=== PATIENT | female | born 1960 | race Caucasian/White ===

== ENCOUNTER 2016-08-25 10:17 | Emergency (ER) | payer OTHER ==
[~2016-08-25] VITALS: Ht 149.9 cm; Wt 54.4 kg
[~2016-08-25 10:17] MED LIST: HYDR-5688 PO; METHADONE PO
[2016-08-25 10:21] VITALS: TEMP 36.9; Ht 149.9 cm; Wt 54.4 kg
[2016-08-25] MEDS ORDERED: MoRPHine SULFATE 4 MG/ML 1 ML CARP\\VIAL IV STA ×2 (11:21→13:50)
[2016-08-25] MEDS ORDERED: OPTIRAY 320 IV PRN (11:30)
[2016-08-25 11:37] LABS: URINE APPEARANCE CLEAR (CLEAR); URINE BILIRUBIN NEG (NEG); URINE COLOR YELLOW; URINE EPITHELIAL CELL AUTO 20-30 /lpf (0-5); URINE NITRITE NEG (NEG); URINE PH 5.5 (4.5-7.5); URINE SPECIFIC GRAVITY 1.007 (1.000-1.030); UROBILINOGEN NEG (NEG); ZZUR CULT IF INDIC CLEAN CATCH NO
[2016-08-25 11:40] LABS: BASO % 0.3 %; BASO ABS # 0.02 K/uL (0-0.2); COMPLETE YES; EOS % 0.5 %; IG% 0.3 %; LYMPH % 27.9 %; LYMPH ABS # 2.18 K/uL (1.2-3.4); MEAN CELL VOLUME 93.5 fL (80-100); MEAN CORPUSCULAR HEMOGLOBIN 31.8 pg (25-34); MEAN PLATELET VOLUME 9.2 fL (7.4-10.4); MONO % 6.5 %; NEUT % 64.5 %; PLATELET COUNT 209 K/uL (130-400); RED BLOOD COUNT 4.28 M/uL (4.2-5.4)
[2016-08-25 11:44] LABS: MANUAL MICROSCOPIC REQUIRED? NO; REVIEW REQ? NO
[2016-08-25 11:54] LABS: INR 0.9 (0.9-1.1); PARTIAL THROMBOPLASTIN RATIO 0.8; PROTHROMBIN TIME (PATIENT) 9.7 SECONDS (9.0-12.0)
[2016-08-25 12:00] LABS: ALT/SGPT 31 U/L (12-78); AST/SGOT 30 U/L (15-37); BLOOD UREA NITROGEN 4 mg/dl (7-18); BUN/CREATININE RATIO 9.7 (10-20); CALCIUM 8.7 mg/dl (8.5-10.1); CARBON DIOXIDE 24 mmol/L (21-32); CHLORIDE 106 mmol/L (98-107); CREATININE 0.44 mg/dl (0.60-1.20); GLUCOSE 83 mg/dl (70-99); POTASSIUM 3.7 mmol/L (3.5-5.1); SODIUM 137 mmol/L (136-145)
[2016-08-25 12:05] LABS: ALB/GLOB RATIO 1.1 (0.9-2); ALKALINE PHOSPHATASE 113 U/L (45-117)
[2016-08-25] MEDS ORDERED: LOSA50TA6 PO (12:07)
[2016-08-25] MEDS ORDERED: [UNRECOGNIZED DRUG - CODE] PO (12:09)
[2016-08-25] MEDS ORDERED: PROM25TA9 PO (12:11)
[2016-08-25] MEDS ORDERED: VLT/50 PO (12:19)
[2016-08-25] MEDS ORDERED: NORT25CA PO (12:21)
[2016-08-25] MEDS ORDERED: BUTA1CAP17 PO (12:24)
--- NOTE | 2016-08-25 12:27 | DIAGNOSTIC IMAGING REPORT ---
CHEST ONE VIEW PORTABLE CLINICAL HISTORY: Chest and abdominal pain. COMPARISON STUDY: Chest CT August 25, 2012. FINDINGS: Lung volumes are normal. There is no pneumothorax or pleural effusion. Calcified mediastinal and right hilar nodes are present. Cardiomediastinal silhouette is stable. Postsurgical finding within left lung apex are noted. There is no evidence of pulmonary edema. Calcified right midlung nodule is noted. The appearance of the chest is unchanged. IMPRESSION: No acute findings. No change in appearance of the chest. Electronically signed by: Jamie Guajardo M.D. 08/25/2016 12:25 PM Dictated Date/Time: 08/25/2016 12:23 PM
--- NOTE | 2016-08-25 13:38 | DIAGNOSTIC IMAGING REPORT ---
CT SCAN OF THE ABDOMEN AND PELVIS WITH IV CONTRAST CLINICAL HISTORY: Generalized abdominal pain. Bloating. COMPARISON STUDY: Abdominal CT dated 08/27/2012. TECHNIQUE: Following the IV administration of 88 cc of Optiray 320, CT scan of the abdomen and pelvis is performed from the lung bases to the proximal femora. Images are reviewed in the axial, sagittal, and coronal planes. IV contrast was administered without complication. Automated dose control exposure was utilized. CT DOSE: 252.51 mGy.cm FINDINGS: Lung bases: The heart is normal in size and without pericardial effusion. Emphysema is noted at the lung bases. There is no airspace consolidation typical for pneumonia or pleural effusion. A 4 cm focus of patchy/geographic groundglass change is present the left lung base on image #43. A tiny hiatal hernia is identified. Liver: The contrast-enhanced liver is mildly enlarged, measuring 18.5 cm in length. The liver demonstrates diffusely diminished attenuation consistent with hepatic steatosis. There is no intrahepatic biliary ductal dilatation. The hepatic veins and portal veins are patent. Gallbladder: Surgically absent noting clips in the gallbladder fossa. Spleen: Normal in size and attenuation. Pancreas: Moderately atrophic and grossly unremarkable. Adrenal glands: Unremarkable. Kidneys: The contrast enhanced kidneys are normal in size and without hydronephrosis. The kidneys enhance symmetrically. Abdominal vasculature: The abdominal aorta is normal in course and caliber noting mild to moderate atherosclerotic calcification. Bowel: There are several large duodenal diverticula. No bowel obstruction is seen. There is moderate sigmoid diverticulosis without CT evidence of acute diverticulitis. There is wall thickening and hyperemia identified involving the sigmoid colon and rectum. The appendix is well-visualized and normal. Peritoneum: There is no intraperitoneal free air or abdominal ascites. There is a small fat-containing umbilical hernia. Lymphadenopathy: None. Pelvic viscera: The bladder is normal as visualized. The uterus is surgically absent. No adnexal lesion is seen. Skeletal structures: The skeletal structures appear osteopenic. Mild lumbosacral spondylosis is observed. No lytic or blastic lesions are seen. IMPRESSION: 1. Findings suggest a nonspecific proctocolitis involving the rectosigmoid colon. Clinical correlation will be required. 2. Hepatomegaly and hepatic steatosis. 3. There is a nonspecific 4 cm geographic focus of groundglass change at the left lung base. This was not seen on 08/19/2012 and may be on an infectious/inflammatory basis. A precautionary follow-up chest CT is recommended in 2-3 months time to document resolution as low-grade neoplasm could also have this appearance. 4. Moderate sigmoid diverticulosis without CT evidence of acute diverticulitis. 5. Emphysema. 6. Additional findings as above. Electronically signed by: Amauri Colon M.D. 08/25/2016 1:36 PM Dictated Date/Time: 08/25/2016 1:28 PM
[2016-08-25] MEDS ORDERED: CIPR-255 PO (14:49)
[2016-08-25] MEDS ORDERED: METR-163 PO (14:49)
[2016-08-25] MEDS ORDERED: OXYC-57 PO (14:50)
--- NOTE | 2016-08-25 14:53 | EMERGENCY ROOM VISIT NOTE ---
History First contact with patient: 11:01 Chief Complaint: ABDOMINAL PAIN Stated Complaint: PAIN IN STOMACH,BLOATING Nursing Triage Summary: Triage note: pt reports generalized abd pain and increased weight gain x "a couple months." History of Present Illness The patient is a 55 year old female who presents to the Emergency Room with complaints of generalized abdominal pain and weight gain for the past month. The patient states that she had a hiatal hernia repaired a few months ago. She states that she has had generalized abdominal pain as well as waking over the past 1 month. She has had chest pain "a few times a day." She has been seeing her primary care provider and states that she has an abdominal ultrasound scheduled next month. She also has a heart catheterization scheduled in the future. She denies any chest pain at this time. The patient has had nausea and a few episodes of vomiting. There have been no changes in bowel movements and she denies diarrhea. She states that it sometimes feels difficulty taking a deep breath. She denies any urinary symptoms or fevers. She reports a history of a , exploratory laparoscopies, hysterectomy, and cholecystectomy. She rates her overall discomfort a 10/10. She states she has been taking Phenergan which is prescribed by her primary care provider with little relief. Review of Systems A complete 10-point Review of Systems was discussed with the patient, with pertinent positives and negatives listed in the History of Present Illness. All remaining Review of Systems questions can be considered negative unless otherwise specified. Social History Smoking Status: Current Every Day Smoker Alcohol Use: other (drinks one 12 pack per week) Current/Historical Medications Scheduled Yfgyafosei-Wbwvlmhgxjtrc-Cenyc (Fioricet), 1 CAP PO UD Ciprofloxacin Hcl (Cipro), 500 MG PO BID Losartan Potassium (Cozaar), 50 MG PO DAILY Metronidazole (Flagyl), 500 MG PO TID Nortriptyline (Pamelor), 25 MG PO HS [Methadone], 42 MG PO QAM Scheduled PRN Diclofenac Sod (Voltaren), 50 MG PO Q8H PRN for Headache Oxycodone/Acetaminophen 5MG/325MG (Percocet 5MG/325MG), 1-2 TABS PO Q4H PRN for Pain Promethazine Hcl (Phenergan), 25 MG PO TID PRN for Nausea Allergies Coded Allergies: No Known Allergies (Unverified , 08/25/16) Physical Exam Vital Signs Date Time Temp Pulse Resp B/P Pulse Ox O2 Delivery O2 Flow Rate FiO2 08/25/16 15:05 95 146/93 98 08/25/16 13:45 83 18 115/79 97 Room Air 08/25/16 13:32 85 08/25/16 11:58 87 18 123/69 95 Room Air 08/25/16 10:36 101 08/25/16 10:21 36.9 62 18 130/75 98 Room Air Physical Exam VITALS: Vitals are noted on the nurse's note and reviewed by myself. Vital signs stable. GENERAL: This is a 55-year-old female, in no acute distress, nondiaphoretic, well-developed well-nourished. SKIN: Capillary reflex less than 2 seconds. HEENT: Normocephalic. PERRLA. EOMI. Nares patent. Mucous membranes moist. Neck is supple without nuchal rigidity. HEART: Regular rate and rhythm without murmurs gallops or rubs. LUNGS: Clear to auscultation bilaterally without wheezes, rales or rhonchi. No retractions or accessory muscle use. ABDOMEN: The abdomen is mildly distended in appearance. Normal active bowel sounds in all 4 quadrants. Generalized mild tenderness to palpation throughout the abdomen. No guarding or rebound tenderness. NEURO: Patient was alert and oriented to person place and time. Medical Decision & Procedures ER Provider Diagnostic Interpretation: CHEST ONE VIEW PORTABLE FINDINGS: Lung volumes are normal. There is no pneumothorax or pleural effusion. Calcified mediastinal and right hilar nodes are present. Cardiomediastinal silhouette is stable. Postsurgical finding within left lung apex are noted. There is no evidence of pulmonary edema. Calcified right midlung nodule is noted. The appearance of the chest is unchanged. IMPRESSION: No acute findings. No change in appearance of the chest. CT SCAN OF THE ABDOMEN AND PELVIS WITH IV CONTRAST FINDINGS: Lung bases: The heart is normal in size and without pericardial effusion. Emphysema is noted at the lung bases. There is no airspace consolidation typical for pneumonia or pleural effusion. A 4 cm focus of patchy/geographic groundglass change is present the left lung base on image #43. A tiny hiatal hernia is identified. Liver: The contrast-enhanced liver is mildly enlarged, measuring 18.5 cm in length. The liver demonstrates diffusely diminished attenuation consistent with hepatic steatosis. There is no intrahepatic biliary ductal dilatation. The hepatic veins and portal veins are patent. Gallbladder: Surgically absent noting clips in the gallbladder fossa. Spleen: Normal in size and attenuation. Pancreas: Moderately atrophic and grossly unremarkable. Adrenal glands: Unremarkable. Kidneys: The contrast enhanced kidneys are normal in size and without hydronephrosis. The kidneys enhance symmetrically. Abdominal vasculature: The abdominal aorta is normal in course and caliber noting mild to moderate atherosclerotic calcification. Bowel: There are several large duodenal diverticula. No bowel obstruction is seen. There is moderate sigmoid diverticulosis without CT evidence of acute diverticulitis. There is wall thickening and hyperemia identified involving the sigmoid colon and rectum. The appendix is well-visualized and normal. Peritoneum: There is no intraperitoneal free air or abdominal ascites. There is a small fat-containing umbilical hernia. Lymphadenopathy: None. Pelvic viscera: The bladder is normal as visualized. The uterus is surgically absent. No adnexal lesion is seen. Skeletal structures: The skeletal structures appear osteopenic. Mild lumbosacral spondylosis is observed. No lytic or blastic lesions are seen. IMPRESSION: 1. Findings suggest a nonspecific proctocolitis involving the rectosigmoid colon. Clinical correlation will be required. 2. Hepatomegaly and hepatic steatosis. 3. There is a nonspecific 4 cm geographic focus of groundglass change at the left lung base. This was not seen on 08/19/2012 and may be on an infectious/inflammatory basis. A precautionary follow-up chest CT is recommended in 2-3 months time to document resolution as low-grade neoplasm could also have this appearance. 4. Moderate sigmoid diverticulosis without CT evidence of acute diverticulitis. 5. Emphysema. 6. Additional findings as above. Laboratory Results 08/25/16 11:20 Red Blood Count 4.28, Mean Corpuscular Volume 93.5, Mean Corpuscular Hemoglobin 31.8, Mean Corpuscular Hemoglobin Concent 34.0, Mean Platelet Volume 9.2, Neutrophils (%) (Auto) 64.5, Lymphocytes (%) (Auto) 27.9, Monocytes (%) (Auto) 6.5, Eosinophils (%) (Auto) 0.5, Basophils (%) (Auto) 0.3, Neutrophils # (Auto) 5.03, Lymphocytes # (Auto) 2.18, Monocytes # (Auto) 0.51, Eosinophils # (Auto) 0.04, Basophils # (Auto) 0.02 08/25/16 11:20 Test 08/25/16 10:30 08/25/16 11:20 Urine Color YELLOW Urine Appearance CLEAR (CLEAR) Urine pH 5.5 (4.5-7.5) Urine Specific [place] 1.007 (1.000-1.030) Urine Protein NEG (NEG) Urine Glucose (UA) NEG (NEG) Urine Ketones NEG (NEG) Urine Occult Blood TRACE (NEG) Urine Nitrite NEG (NEG) Urine Bilirubin NEG (NEG) Urine Urobilinogen NEG (NEG) Urine Leukocyte Esterase NEG (NEG) Urine WBC (Auto) 1-5 /hpf (0-5) Urine RBC (Auto) 0-4 /hpf (0-4) Urine Hyaline Casts (Auto) 1-5 /lpf (0-5) Urine Epithelial Cells (Auto) 20-30 /lpf (0-5) Urine Bacteria (Auto) NEG (NEG) White Blood Count 7.80 K/uL (4.8-10.8) Red Blood Count 4.28 M/uL (4.2-5.4) Hemoglobin 13.6 g/dL (12.0-16.0) Hematocrit 40.0 % (37-47) Mean Corpuscular Volume 93.5 fL (80-100) Mean Corpuscular Hemoglobin 31.8 pg (25-34) Mean Corpuscular Hemoglobin Concent 34.0 g/dl (32-36) Platelet Count 209 K/uL (130-400) Mean Platelet Volume 9.2 fL (7.4-10.4) Neutrophils (%) (Auto) 64.5 % Lymphocytes (%) (Auto) 27.9 % Monocytes (%) (Auto) 6.5 % Eosinophils (%) (Auto) 0.5 % Basophils (%) (Auto) 0.3 % Neutrophils # (Auto) 5.03 K/uL (1.4-6.5) Lymphocytes # (Auto) 2.18 K/uL (1.2-3.4) Monocytes # (Auto) 0.51 K/uL (0.11-0.59) Eosinophils # (Auto) 0.04 K/uL (0-0.5) Basophils # (Auto) 0.02 K/uL (0-0.2) RDW Standard Deviation 44.6 fL (36.4-46.3) RDW Coefficient of Variation 13.1 % (11.5-14.5) Immature Granulocyte % (Auto) 0.3 % Immature Granulocyte # (Auto) 0.02 K/uL (0.00-0.02) Prothrombin Time 9.7 SECONDS (9.0-12.0) Prothromb Time International Ratio 0.9 (0.9-1.1) Activated Partial Thromboplast Time 21.0 SECONDS (21.0-31.0) Partial Thromboplastin Ratio 0.8 Anion Gap 7.0 mmol/L (3-11) Est Creatinine Clear Calc Drug Dose 108.8 ml/min Estimated GFR () 131.7 Estimated GFR (Non- 113.6 BUN/Creatinine Ratio 9.7 (10-20) Calcium Level 8.7 mg/dl (8.5-10.1) Total Bilirubin 0.3 mg/dl (0.2-1) Aspartate Amino Transf (AST/SGOT) 30 U/L (15-37) Alanine Aminotransferase (ALT/SGPT) 31 U/L (12-78) Alkaline Phosphatase 113 U/L (45-117) Troponin I < 0.015 ng/ml (0-0.045) Total Protein 6.6 gm/dl (6.4-8.2) Albumin 3.4 gm/dl (3.4-5.0) Globulin 3.2 gm/dl (2.5-4.0) Albumin/Globulin Ratio 1.1 (0.9-2) Lipase 88 U/L (73-393) Medications Administered Medications (Trade) Dose Ordered Sig/Nash Route Start Time Stop Time Status Last Admin Dose Admin Morphine Sulfate (MoRPHine SULFATE INJ) 4 mg NOW STAT IV 08/25/16 11:21 08/25/16 11:23 DC 08/25/16 11:33 4 MG Morphine Sulfate (MoRPHine SULFATE INJ) 4 mg NOW STAT IV 08/25/16 13:50 08/25/16 13:51 DC 08/25/16 14:02 4 MG ED Course The patient was evaluated as above. Labs were drawn and IV access was obtained. Patient was medicated with 4 mg morphine IV. Patient complained of continued pain and was given an additional 4 mg morphine. Chest x-ray and abdominal CT was performed and read by radiology as above. Patient was reevaluated and felt much better. Findings were discussed with the patient. Discharge instructions were reviewed with the patient. The patient verbalized understanding of my assessment and treatment plan and was discharged home in good condition. Medical Decision Differential diagnosis includes appendicitis, diverticulitis, malignancy, colitis, abdominal ascites, hepatitis, cholecystitis, pancreatitis, among others. The patient is a 55-year-old female who presents today complaining of abdominal pain and weight gain. Labs revealed no leukocytosis, anemia or concerning electrolyte abnormalities. Urinalysis was not suggestive of infection. CT scan showed evidence of nonspecific proctocolitis. The patient has no rectal bleeding. She will be placed on ciprofloxacin and Flagyl and was given a prescription for pain medication. Case management will make the patient an appointment with GI for a colonoscopy. The case was discussed with Dr. Baez, ED attending physician, who agreed with my assessment and treatment plan. Based on the patient's presentation and work up, I feel the patient is stable for outpatient treatment. The patient was educated to return to the emergency department for any worsening of their current condition or new/concerning symptoms. She will follow up with GI and her PCP. [place] Drug Monitoring Program Search Results: no issues identified Impression Primary Impression: Proctocolitis Departure Information Dispostion Home / Self-Care Condition GOOD Prescriptions Oxycodone/Acetaminophen 5MG/325MG (PERCOCET 5MG/325MG) Tab 1-2 TABS PO Q4H Y for Pain, #15 TAB For Initial Treatment Prov: Trista Alva PA-C 08/25/16 Metronidazole (Flagyl) 500 Mg Tab 500 MG PO TID for 10 Days, #30 TAB Prov: Trista Alva PA-C 08/25/16 Ciprofloxacin Hcl (CIPRO) 500 Mg Tab 500 MG PO BID for 10 Days, #20 TAB Prov: Trista Alva PA-C 08/25/16 Referrals Aravind Ontiveros D[facility] (PCP) Patient Instructions My [facility] Additional Instructions You were prescribed Flagyl to be taken 3 times daily as prescribed. This is an antibiotic. All antibiotics have the potential to cause diarrhea. Stop this medication and contact a medical provider if you were to develop any significant adverse side effects including: wheezing, shortness of breath, passing out, vomiting, or a diffuse rash. Always take antibiotics as directed and COMPLETE the ENTIRE course regardless of the improvement of your symptoms. Do NOT drink alcohol while taking this medication, as it will cause severe vomiting. You were prescribed ciprofloxacin to be taken as prescribed. This is an antibiotic. All antibiotics have the potential to cause diarrhea. Stop this medication and contact a medical provider if you were to develop any significant adverse side effects including: wheezing, shortness of breath, passing out, vomiting, or a diffuse rash. Always take antibiotics as directed and COMPLETE the ENTIRE course regardless of the improvement of your symptoms. You have been prescribed Percocet to be used for pain control. Take 1-2 tablets every 4-6 hours as needed for pain. This is a narcotic medication. You cannot drive or consume alcohol while on this medicine. This medicine should only be used for pain that cannot be controlled with hzrg-qew-vrvrwtq pain medicines. For pain control, you can use the following eser-wfa-fbuhzux medicines (if >12 yo): - Regular strength (325mg/tab) Tylenol (acetaminophen) 2 tabs every 4-6 hours as needed. Do not exceed 12 tablets in a 24 hour period. Avoid taking more than 4 grams (4000 mg) of Tylenol per day. This includes any other sources of acetaminophen you may take on a regular basis. - Regular strength (200 mg/tab) Advil (ibuprofen) 1-2 tabs every 4-6 hours as needed. Do not exceed a dose of 3200 mg per day. Case management will schedule you a follow-up appointment with gastroenterology. Make sure to keep this appointment. You should also follow-up with your primary care provider this week. Return to the emergency department with any worsening pain, vomiting, fevers or any new/concerning symptoms. 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
[2016-08-25 15:05] VITALS: BP 146/93; PULSE 95; O2SAT 98
[2016-09-08] MEDS ORDERED: CIPR-255 PO (09:20)
[2016-09-08] MEDS ORDERED: METR-163 PO (09:20)
[2016-09-08] MEDS ORDERED: ASPI81TA28 PO (09:21)
[2016-12-24] MEDS ORDERED: FLUT1INH INH (10:20)
[2016-12-24] MEDS ORDERED: VNTHFA/IN INH (10:20)
== END 2016-08-25 15:00 | disposition home or self-care (01) ==
LOC: C.EDB 10:18 → C.EDA 15:00
DX: K51.30 Ulcerative (chronic) rectosigmoiditis without complications (principal); F17.200 Nicotine dependence, unspecified, uncomplicated; R16.0 Hepatomegaly, not elsewhere classified; K76.0 Fatty (change of) liver, not elsewhere classified; R91.8 Other nonspecific abnormal finding of lung field; K57.30 Diverticulosis of large intestine without perforation or abscess without bleeding; J43.9 Emphysema, unspecified

== ENCOUNTER → 2016-12-21 | Outpatient (CLI) | payer OTHER ==
[~2016-12-21] MED LIST changes: +ASPI81TA28 PO; +BUTA1CAP17 PO; +CIPR-255 PO; +FLUT1INH INH; -HYDR-5688 PO; +LOSA50TA6 PO; +METR-163 PO; +NORT25CA PO; +PROM25TA9 PO; +VANC5CAP PO; +VLT/50 PO; +VNTHFA/IN INH
--- NOTE | 2016-12-21 13:59 | DIAGNOSTIC IMAGING REPORT ---
PA CHEST WITH ABDOMINAL SERIES CLINICAL HISTORY: Diarrhea. Abdominal distention. FINDINGS: A PA chest radiograph is compared to study dated 08/25/2016. The cardiomediastinal silhouette is unremarkable. There are calcified mediastinal and hilar lymph nodes. Calcified granuloma is seen in the right upper lobe. Suture material is present the medial left apex. No airspace consolidation, large pleural effusion, or pneumothorax is seen. The skeletal structures are osteopenic. The bony thorax is grossly intact. Supine and erect abdominal radiographs are correlated with abdominal CT dated 08/25/2016. Cholecystectomy clips are seen in the right upper quadrant. The liver appears enlarged. There is a nonobstructed abdominal bowel gas pattern. No evidence of intraperitoneal free air is seen. There are no abnormal abdominal calcifications. Small phleboliths are identified in the pelvis. The lumbosacral spine and bony pelvis appear intact. Sclerotic change is noted in the sacroiliac joints. IMPRESSION: 1. No active disease in the chest. 2. Nonobstructed abdominal bowel gas pattern. Electronically signed by: Amauri Colon M.D. 12/21/2016 1:58 PM Dictated Date/Time: 12/21/2016 1:55 PM
== END | disposition home or self-care (01) ==
LOC: C.RAD 13:12
PROVIDERS: ATTEND Registered Nurse
DX: R14.0 Abdominal distension (gaseous) (principal); R93.3 Abnormal findings on diagnostic imaging of other parts of digestive tract; R10.31 Right lower quadrant pain; R10.32 Left lower quadrant pain; R19.7 Diarrhea, unspecified

== ENCOUNTER → 2016-12-29 | Day surgery (SDC) | payer OTHER ==
[2016-12-24 10:11] VITALS: Ht 148.6 cm; Wt 52.7 kg
[~2016-12-29] VITALS: Ht 148.6 cm; Wt 52.7 kg
[~2016-12-29] MED LIST changes: -ASPI81TA28 PO; -CIPR-255 PO; +LIDOCAINE HCL 2% 2 ML VIAL (20MG/ML) ONE; -LOSA50TA6 PO; -METR-163 PO; +PROPOFOL IV EMULSION 10 MG/ML 20 ML VIAL IV ONE; +SODIUM CHLORIDE 0.9% 500ML 500 ML IV ONE
[2016-12-29 10:13] VITALS: TEMP 37
--- NOTE | 2016-12-29 10:28 | Endo History and Physical ---
History & Physical Date of Service: Dec 29, 2016. Chief Complaint: Abdominal pain, Abnormal CT Referring Physician: Srikanth History of Present Illness 56 yo CF who presents for colonoscopy secondary to abdominal pain and abnormal CT Scan. Past Surgical History Hx Cardiac Surgery: Yes (HEART CATH, NO STENTS) Hx Internal Defibrillator: No Hx Pacemaker: No Hx Abdominal Surgery: Yes (TRICIA BSO, HERNIA REPAIR, KIMBERLY, , UMBILICAL EXPLORATORY PROCEDURE) Hx of Implantable Prosthesis: No Hx Post-Op Nausea and Vomiting: No Hx Cancer Surgery: Yes (UPPER LEFT LOBECTOMY) Hx Thoracic Surgery: No Hx Orthopedic: Yes (KYPHOPLASTY) Hx Urinary Tract Surgery: No Family History Colon CA Social History Smoking Status: Current Every Day Smoker Hx Substance Use: Yes (METHADONE USE - HX DRUG USE) Hx Alcohol Use: Yes (6-12 PACK BEER/WEEK) Allergies Coded Allergies: Morphine (Verified Allergy, Unknown, HIVES, 12/29/16) Current Medications Reported Home Medications Medications Dose Route/Sig Max Daily Dose Days Date Category Dose Instructions Ventolin Hfa (Albuterol) 200 Puffs/61774 Mcg Aers 2-4 Puffs INH Q6H PRN 12/24/16 Reported Breo Ellipta (Fluticasone Furoate-Vilanterol) 1 Inh Inh 2 Puffs INH QAM 12/24/16 Reported Fioricet (Nowjrtpjra-Oadetbbpwujvh-Krknj) 1 Cap Cap 1 Cap PO UD 08/25/16 Reported TAKE 1 CAPSULE AT ON SET OF MIGRAINE. MAY REPEAT AFTER 4 HOURS. NO MORE THAN 2 CAPSULES PER DAY Pamelor (Nortriptyline HCl) 25 Mg Cap 25 Mg PO HS 08/25/16 Reported Voltaren (Diclofenac Sod) 50 Mg Tabcr 50 Mg PO Q8H PRN 08/25/16 Reported Phenergan (Promethazine HCl) 25 Mg Tab 25 Mg PO TID PRN 08/25/16 Reported [Methadone] 33 Mg PO QAM 01/26/16 Reported Vital Signs Weight (Kilograms): 52.73 Height (Feet): 4 Height (Inches): 10.5 Date Time Temp Pulse Resp B/P (MAP) Pulse Ox O2 Delivery O2 Flow Rate FiO2 12/29/16 10:13 37.0 87 20 159/92 (114) 95 Room Air Physical Exam General Appearance: WD/WN, no apparent distress Respiratory/Chest: Auscultation: breath sounds normal Cardiovascular: Heart Auscultation: RRR Abdomen: Bowel Sounds: normal Inspection & Palpation: soft, non-distended, no tenderness, guarding & rebound Assessment and Plan Assessment: 56 yo CF who presents for colonoscopy secondary to abdominal pain and abnormal CT Scan. Plan: Proceed with colonoscopy.
--- NOTE | 2016-12-29 10:55 | Discharge Instructions ---
Endoscopy Patient Instructions Date / Procedure(s) Performed Dec 29, 2016. Colonoscopy Allergy Information Coded Allergies: Morphine (Verified Allergy, Unknown, HIVES, 12/29/16) Discharge Date / Findings Dec 29, 2016. Non-specific colitis s/p biopsies Diverticulosis Medication Instructions OK to resume all medications today as prescribed Reported Home Medications Medications Dose Route/Sig Max Daily Dose Days Date Category Dose Instructions Ventolin Hfa (Albuterol) 200 Puffs/31788 Mcg Aers 2-4 Puffs INH Q6H PRN 12/24/16 Reported Breo Ellipta (Fluticasone Furoate-Vilanterol) 1 Inh Inh 2 Puffs INH QAM 12/24/16 Reported Fioricet (Qpoyaqqynr-Rpppuvrwvojkq-Exmbr) 1 Cap Cap 1 Cap PO UD 08/25/16 Reported TAKE 1 CAPSULE AT ON SET OF MIGRAINE. MAY REPEAT AFTER 4 HOURS. NO MORE THAN 2 CAPSULES PER DAY Pamelor (Nortriptyline HCl) 25 Mg Cap 25 Mg PO HS 08/25/16 Reported Voltaren (Diclofenac Sod) 50 Mg Tabcr 50 Mg PO Q8H PRN 08/25/16 Reported Phenergan (Promethazine HCl) 25 Mg Tab 25 Mg PO TID PRN 08/25/16 Reported [Methadone] 33 Mg PO QAM 01/26/16 Reported Provider Instructions Activity Restrictions - No exercising or heavy lifting for 24 hours. - Do not drink alcohol the day of the procedure. - Do not drive a car or operate machinery until the day after the procedure. - Do not make any important decisions or sign important papers in 24 hours after the procedure. Following Day: - Return to full activity which may include returning to work/school. Diet Start your diet with liquids and light foods (jello, soup, juice, toast). Then eat your usual diet if not nauseated. Treatment For Common After Affects For mild abdominal pain, bloating, or excessive gas: - Rest - Eat lightly - Lie on right side Follow-Up Information Follow-up with Srikanth as scheduled Anesthesia Information What You Should Know You have had a procedure that required some medicine to reduce anxiety and discomfort. This treatment is called moderate sedation. After receiving the treatment, you may be sleepy, but you will be able to breathe on your own. The effects of the treatment may last for several hours. Follow these instructions along with Activity/Diet recommendations noted above: * Do NOT do anything where dizziness or clumsiness would be dangerous. * Rest quietly at home today, then you can be up and about tomorrow. * Have a responsible person stay with you the rest of today. * You may have had an I.V. today. If so, you may take the dressing off later today. Recommendations Call your doctor if: * Trouble breathing * Continuous vomiting for more than 24 hours * Temperature above 101 degrees * Severe abdominal pain or bloating * Pain not relieved by pain medicine ordered * There is increased drainage or redness from any incision * A large amount of rectal bleeding greater than 2-3 tablespoons. (If you had a polyp/s removed or have hemorrhoids, a small amount of blood - from the rectum is to be expected.) * You have any unanswered questions or concerns. IN THE EVENT OF A SERIOUS EMERGENCY, GO TO THE NEAREST EMERGENCY ROOM Your discharge instructions were prepared by provider Kurtis Amado. Patient Instructions Signature Page Najma Melo Patient (or Guardian) Signature/Date: I have read and understand the instructions given to me by my caregivers. Caregiver/RN/Doctor Signature/Date: The above-named patient and/or guardian has received patient instructions on this date. + Original Patient Signature Page (only) stays with chart. Please make copy for patient.
--- NOTE | 2016-12-29 11:03 | GI REPORT ---
Procedure Date: 12/29/2016 10:09 AM Procedure: Colonoscopy Indications: Generalized abdominal pain, Abnormal CT of the GI tract Medicines: Monitored Anesthesia Care Complications: No immediate complications. Estimated Blood Loss: Estimated blood loss: none. Procedure: Pre-Anesthesia Assessment: - Prior to the procedure, a History and Physical was performed, and patient medications and allergies were reviewed. The patient's tolerance of previous anesthesia was also reviewed. The risks and benefits of the procedure and the sedation options and risks were discussed with the patient. All questions were answered, and informed consent was obtained. Prior Anticoagulants: The patient has taken no previous anticoagulant or antiplatelet agents. ASA Grade Assessment: II - A patient with mild systemic disease. After reviewing the risks and benefits, the patient was deemed in satisfactory condition to undergo the procedure. After I obtained informed consent, the scope was passed under direct vision. Throughout the procedure, the patient's blood pressure, pulse, and oxygen saturations were monitored continuously. The Scope was introduced through the anus and advanced to the terminal ileum. The colonoscopy was performed without difficulty. The patient tolerated the procedure well. The quality of the bowel preparation was good. The terminal ileum, ileocecal valve, appendiceal orifice, and rectum were photographed. Findings: A diffuse area of mildly erythematous mucosa was found in the entire colon. Several random biopsies were obtained with cold forceps for histology in the entire colon. Fluid aspiration for cytology was performed in the entire colon. Multiple small and large-mouthed diverticula were found in the sigmoid colon. Impression: - Erythematous mucosa in the entire examined colon. - Diverticulosis in the sigmoid colon. - Several random biopsies were obtained in the entire colon. - Fluid aspiration was performed. Recommendation: - Resume previous diet. - Continue present medications. - Repeat colonoscopy for surveillance based on pathology results. - Return to primary care physician as previously scheduled. Kurtis Amado DO 12/29/2016 11:02:23 AM This report has been signed electronically. Note Initiated On: 12/29/2016 10:09 AM I attest to the content of the Intraoperative Record and orders documented therein, exceptions below
--- NOTE | 2016-12-29 11:09 | Anesthesiology Progress Note ---
Anesthesia Post Op Note Date & Time Dec 29, 2016 at 11:08 Vital Signs Pain Intensity: 8 Vital Signs Past 12 Hours Date Time Temp Pulse Resp B/P (MAP) Pulse Ox O2 Delivery O2 Flow Rate FiO2 12/29/16 10:55 88 18 132/77 (95) 98 Room Air 12/29/16 10:13 37.0 87 20 159/92 (114) 95 Room Air Notes Mental Status: alert / awake / arousable, participated in evaluation Pt Amnestic to Procedure: Yes Nausea / Vomiting: adequately controlled Pain: adequately controlled Airway Patency, RR, SpO2: stable & adequate BP & HR: stable & adequate Hydration State: stable & adequate Anesthetic Complications: no major complications apparent
[2016-12-29 11:25] VITALS: BP 141/83; PULSE 80; O2SAT 98
== END | disposition home or self-care (01) ==
LOC: C.GI 09:49
PROVIDERS: ATTEND Internal Medicine
DX: K57.30 Diverticulosis of large intestine without perforation or abscess without bleeding (principal); F17.200 Nicotine dependence, unspecified, uncomplicated; Z80.0 Family history of malignant neoplasm of digestive organs; Z79.899 Other long term (current) drug therapy

== ENCOUNTER → 2017-01-11 | Outpatient (CLI) | payer OTHER ==
[~2017-01-11] MED LIST changes: -LIDOCAINE HCL 2% 2 ML VIAL (20MG/ML) ONE; -PROPOFOL IV EMULSION 10 MG/ML 20 ML VIAL IV ONE; -SODIUM CHLORIDE 0.9% 500ML 500 ML IV ONE
--- NOTE | 2017-01-11 15:28 | PULMONARY FUNCTION TEST ---
CLINICAL DATA: A 56 female with a height of 59 inches and a weight of [address] Mai for evaluation of shortness of breath. The patient has been a smoker for 35 years and does have a cough. She is currently on Spiriva. Spirometry pre- and post-bronchodilator, lung volumes, and DLCO were performed. Pre-bronchodilator spirometry demonstrates mild obstructive small airways disease. FVC was 102% of predicted. FEV1 was 93% of predicted. [id number] was 68% of predicted. There was minimal change after inhaled bronchodilator with no significant change in FVC or FEV1 and only 7% improvement in [id number]. Lung volumes demonstrate no evidence of air trapping with residual volume of 28% of predicted. DLCO is mildly reduced at 73% of predicted. IMPRESSION: Mild obstructive airways disease with minimal improvement after inhaled bronchodilator without evidence of air trapping and a moderate reduction in DLCO. MTDD
== END | disposition home or self-care (01) ==
LOC: C.RC 11:01
PROVIDERS: ATTEND Internal Medicine Pulmonary Disease
DX: R06.02 Shortness of breath (principal)

== ENCOUNTER 2017-02-01 09:14 | Emergency (ER) | payer OTHER ==
[~2017-02-01] VITALS: Ht 149.9 cm; Wt 53.2 kg
[~2017-02-01 09:14] MED LIST changes: -VANC5CAP PO
[2017-02-01 09:28] VITALS: TEMP 36.8; Ht 149.9 cm; Wt 53.2 kg
[2017-02-01] MEDS ORDERED: FENTANYL CITRATE INJ 50 MCG/1 ML 2 ML VIAL IV STA ×2 (10:30→12:50)
[2017-02-01] MEDS ORDERED: ONDANSETRON INJ 2 MG/ML 2 ML VIAL IV STA ×2 (10:30→15:10)
[2017-02-01] MEDS ORDERED: OPTIRAY 320 IV PRN (10:45)
[2017-02-01 11:41] LABS: BASO % 0.4 %; BASO ABS # 0.04 K/uL (0-0.2); COMPLETE YES; EOS % 0.2 %; HEMATOCRIT 43.1 % (37-47); IG% 0.8 %; LYMPH % 23.3 %; LYMPH ABS # 2.35 K/uL (1.2-3.4); MEAN CELL VOLUME 92.5 fL (80-100); MEAN CORPUSCULAR HEMOGLOBIN 32.6 pg (25-34); MEAN CORPUSCULAR HGB CONC 35.3 g/dl (32-36); MEAN PLATELET VOLUME 9.8 fL (7.4-10.4); MONO % 5.5 %; NEUT % 69.8 %; PLATELET COUNT 199 K/uL (130-400); RED BLOOD COUNT 4.66 M/uL (4.2-5.4); WHITE BLOOD COUNT 10.09 K/uL (4.8-10.8)
[2017-02-01 11:44] LABS: URINE APPEARANCE CLEAR (CLEAR); URINE BILIRUBIN NEG (NEG); URINE COLOR YELLOW; URINE EPITHELIAL CELL AUTO >30 /lpf (0-5); URINE NITRITE NEG (NEG); URINE SPECIFIC GRAVITY 1.017 (1.000-1.030); UROBILINOGEN NEG (NEG)
[2017-02-01 12:04] LABS: ALKALINE PHOSPHATASE 151 U/L (45-117); ALT/SGPT 23 U/L (12-78); BLOOD UREA NITROGEN 7 mg/dl (7-18); BUN/CREATININE RATIO 15.1 (10-20); CALCIUM 9.5 mg/dl (8.5-10.1); CARBON DIOXIDE 17 mmol/L (21-32); CHLORIDE 106 mmol/L (98-107); CREATININE 0.45 mg/dl (0.60-1.20); GLUCOSE 91 mg/dl (70-99); SODIUM 135 mmol/L (136-145)
[2017-02-01 12:07] LABS: MANUAL MICROSCOPIC REQUIRED? NO; REVIEW REQ? NO
--- NOTE | 2017-02-01 13:14 | DIAGNOSTIC IMAGING REPORT ---
ABD/PELVIS NO IV OR ORAL CONT HISTORY: 56 years-old Female eval for divertic acute generalized abdominal pain with abdominal bloating. COMPARISON: CT abdomen and pelvis 08/25/2016, CT chest 08/25/2012 TECHNIQUE: Multiple axial CT images of the abdomen and pelvis were obtained without contrast. A dose lowering technique was used consistent with the principals of CESAR. FINDINGS: The previously noted geographic groundglass opacity of the left lung base has increased in size now measuring 11 x 5.2 cm, previously 4 x 2 cm. Mild cystic lung changes within this distribution are seen suggesting centrilobular emphysema. Nonspecific prominent nonenlarged epicardial lymph nodes are present, unchanged. Prior cholecystectomy. Pneumobilia of the left hepatic lobe again noted. Nonspecific prequel calcification of the posterior right hepatic lobe is unchanged. Hepatomegaly with hepatic steatosis redemonstrated. The spleen, pancreas and adrenal glands are within normal limits. There are a few scattered nonenlarged lymph nodes seen adjacent to the left adrenal gland which are unchanged and likely reactive. Kidneys, ureters and urinary bladder are unremarkable. Prior hysterectomy. There is moderate plaquing of the abdominal aorta. No bulky retroperitoneal adenopathy. Moderate sized duodenal diverticulum is noted with air-fluid level. No obstruction. Fluid-filled rectosigmoid is noted with air-fluid level. Mild wall thickening is again seen within this distribution. The majority of the colon is collapsed with relative ahaustral fold pattern. There is no significant inflammatory stranding surrounding the colon. The terminal ileum and appendix appear normal. Colonic diverticulosis without definite evidence of acute diverticulitis. Soft tissues are unremarkable. Moderate intervertebral disc space narrowing at L5-S1. IMPRESSION: 1. Relative ahaustral fold pattern involving the majority of the colon is noted with associated air-fluid levels and moderate wall thickening as above suggesting infectious or inflammatory colitis with diarrheal state. 2. No bowel obstruction or pneumoperitoneum. 3. Colonic diverticulosis without definite evidence of acute diverticulitis. 4. Moderate sized duodenal diverticulum incidentally noted. 5. Interval increase in size of the geographic groundglass opacity of the left lung base now measuring up to 11 cm in dimension. Further evaluation with chest CT recommended. 6. Hepatomegaly with hepatic steatosis. The above report was generated using voice recognition software. It may contain grammatical, syntax or spelling errors. Electronically signed by: Anjel Ochoa M.D. 02/01/2017 1:13 PM Dictated Date/Time: 02/01/2017 1:03 PM
[2017-02-01 13:42] LABS: POTASSIUM 3.5 mmol/L (3.5-5.1)
[2017-02-01] MEDS ORDERED: HYOSCYAMINE SULFATE 0.125 MG SL TAB SL STA (15:10)
[2017-02-01] MEDS ORDERED: VANCOMYCIN HCL 125 MG/2.5ML SOLN PO STA (16:22)
[2017-02-01] MEDS ORDERED: VANC5CAP PO (16:28)
[2017-02-01 16:29] VITALS: BP 163/99; PULSE 97; O2SAT 98
[2017-02-01] MEDS ORDERED: RASPBERRY SYRUP 5 ML UDP PO ONE (16:30)
--- NOTE | 2017-02-01 18:09 | EMERGENCY ROOM VISIT NOTE ---
History Report prepared by Negrito: Rebecca Smith Under the Supervision of: Dr. Javier Daily M.D. First contact with patient: 10:11 Chief Complaint: ABDOMINAL PAIN Stated Complaint: STOMACH PAIN EXTENDED Nursing Triage Summary: pt reports dx with diverticulitis 2 weeks ago given abx , since sat. pain in abdomen has increased with bloating , with NV History of Present Illness The patient is a 56 year old female who presents to the Emergency Room with complaints of worsening abdominal pain for the past 2 days. The patient was having similar pain about a month and a half ago. She came to the ED on December 21 and states that she had a CT scan. She followed up with Dr. Amado and had a colonoscopy which showed inflammation. The patient states that a couple of weeks ago she received a letter stating that she had diverticulitis and she was prescribed Flagyl. She took the antibiotic as prescribed. The patient is now having the same diffuse pain that she was having a month and a half ago. She is bloated and feels like she has a "ball stuck" in her abdomen. She rates her pain as a 10/10 in severity. The patient has been nauseated and vomiting for the past 4 days and has had diarrhea for 2 days. She has felt short of breath and hot but has not had a fever. The patient denies any urinary symptoms. Source of History: patient Onset: 2 days ago Position: abdomen Symptom Intensity: 10/10 Quality: other (bloated) Timing: worsening Associated Symptoms: + SOB, + nausea, + vomiting, No fevers, No urinary symptoms Review of Systems See HPI for pertinent positives & negatives. A total of 10 systems reviewed and were otherwise negative. Past Medical & Surgical Medical Problems: (1) Hx of cancer of lung Surgical Problems: (1) History of cholecystectomy Family History Cancer Heart disease Hypertension Social History Smoking Status: Current Every Day Smoker Alcohol Use: none Occupation Status: unemployed Current/Historical Medications Scheduled Kngiepcdyj-Tlcunewwyyczy-Mmcdb (Fioricet), 1 CAP PO UD Fluticasone Furoate-Vilanterol (Breo Ellipta), 2 PUFFS INH QAM Nortriptyline (Pamelor), 25 MG PO HS Vancomycin Hcl (Vancomycin), 1 CAP PO QID [Methadone], 33 MG PO QAM Scheduled PRN Albuterol Hfa (Ventolin Hfa), 2-4 PUFFS INH Q6H PRN for SOB/Wheezing Promethazine Hcl (Phenergan), 25 MG PO TID PRN for Nausea Allergies Coded Allergies: Morphine (Verified Allergy, Unknown, HIVES, 02/01/17) Physical Exam Vital Signs Date Time Temp Pulse Resp B/P (MAP) Pulse Ox O2 Delivery O2 Flow Rate FiO2 02/01/17 16:29 97 18 163/99 98 Room Air 02/01/17 14:12 89 166/95 100 Room Air 02/01/17 13:06 86 16 162/101 96 Room Air 02/01/17 11:00 93 153/131 97 Room Air 02/01/17 09:28 36.8 98 20 150/96 98 Room Air Physical Exam Constitutional: Vital signs reviewed. Eyes: Pupils are equal round reactive to light. Conjunctiva are noninjected. ENT: Pharynx is clear without erythema or exudate. Mucous membranes are dry. Neck supple without meningeal signs. Respiratory: Clear to auscultation bilaterally. Breath sounds are equal bilaterally. Cardiovascular: Regular rate and rhythm. No rubs or gallops. GI: Soft, distended with diffuse tenderness, greatest in the LLQ, no guarding. Bowel sounds are present. Musculoskeletal: No peripheral edema. No lower extremity tenderness. Integumentary: No cyanosis. Neurological: The patient is awake and alert. No focal deficits. Psychiatric: Anxious and tearful. Medical Decision & Procedures ER Provider Diagnostic Interpretation: Radiology results as stated below per my review and the radiologist's interpretation: ABD/PELVIS NO IV OR ORAL CONT HISTORY: 56 years-old Female eval for divertic acute generalized abdominal pain with abdominal bloating. COMPARISON: CT abdomen and pelvis 08/25/2016, CT chest 08/25/2012 TECHNIQUE: Multiple axial CT images of the abdomen and pelvis were obtained without contrast. A dose lowering technique was used consistent with the principals of CESAR. FINDINGS: The previously noted geographic groundglass opacity of the left lung base has increased in size now measuring 11 x 5.2 cm, previously 4 x 2 cm. Mild cystic lung changes within this distribution are seen suggesting centrilobular emphysema. Nonspecific prominent nonenlarged epicardial lymph nodes are present, unchanged. Prior cholecystectomy. Pneumobilia of the left hepatic lobe again noted. Nonspecific prequel calcification of the posterior right hepatic lobe is unchanged. Hepatomegaly with hepatic steatosis redemonstrated. The spleen, pancreas and adrenal glands are within normal limits. There are a few scattered nonenlarged lymph nodes seen adjacent to the left adrenal gland which are unchanged and likely reactive. Kidneys, ureters and urinary bladder are unremarkable. Prior hysterectomy. There is moderate plaquing of the abdominal aorta. No bulky retroperitoneal adenopathy. Moderate sized duodenal diverticulum is noted with air-fluid level. No obstruction. Fluid-filled rectosigmoid is noted with air-fluid level. Mild wall thickening is again seen within this distribution. The majority of the colon is collapsed with relative ahaustral fold pattern. There is no significant inflammatory stranding surrounding the colon. The terminal ileum and appendix appear normal. Colonic diverticulosis without definite evidence of acute diverticulitis. Soft tissues are unremarkable. Moderate intervertebral disc space narrowing at L5-S1. IMPRESSION: 1. Relative ahaustral fold pattern involving the majority of the colon is noted with associated air-fluid levels and moderate wall thickening as above suggesting infectious or inflammatory colitis with diarrheal state. 2. No bowel obstruction or pneumoperitoneum. 3. Colonic diverticulosis without definite evidence of acute diverticulitis. 4. Moderate sized duodenal diverticulum incidentally noted. 5. Interval increase in size of the geographic groundglass opacity of the left lung base now measuring up to 11 cm in dimension. Further evaluation with chest CT recommended. 6. Hepatomegaly with hepatic steatosis. The above report was generated using voice recognition software. It may contain grammatical, syntax or spelling errors. Electronically signed by: Anjel Ochoa M.D. 02/01/2017 1:13 PM Dictated Date/Time: 02/01/2017 1:03 PM Laboratory Results 02/01/17 11:31 Red Blood Count 4.66, Mean Corpuscular Volume 92.5, Mean Corpuscular Hemoglobin 32.6, Mean Corpuscular Hemoglobin Concent 35.3, Mean Platelet Volume 9.8, Neutrophils (%) (Auto) 69.8, Lymphocytes (%) (Auto) 23.3, Monocytes (%) (Auto) 5.5, Eosinophils (%) (Auto) 0.2, Basophils (%) (Auto) 0.4, Neutrophils # (Auto) 7.05, Lymphocytes # (Auto) 2.35, Monocytes # (Auto) 0.55, Eosinophils # (Auto) 0.02, Basophils # (Auto) 0.04 02/01/17 11:31 02/01/17 12:34 Test 02/01/17 11:30 02/01/17 11:31 02/01/17 12:34 Urine Color YELLOW Urine Appearance CLEAR (CLEAR) Urine pH 5.0 (4.5-7.5) Urine Specific [place] 1.017 (1.000-1.030) Urine Protein NEG (NEG) Urine Glucose (UA) NEG (NEG) Urine Ketones NEG (NEG) Urine Occult Blood 2+ (NEG) Urine Nitrite NEG (NEG) Urine Bilirubin NEG (NEG) Urine Urobilinogen NEG (NEG) Urine Leukocyte Esterase TRACE (NEG) Urine WBC (Auto) 1-5 /hpf (0-5) Urine RBC (Auto) 0-4 /hpf (0-4) Urine Hyaline Casts (Auto) 1-5 /lpf (0-5) Urine Epithelial Cells (Auto) >30 /lpf (0-5) Urine Bacteria (Auto) NEG (NEG) White Blood Count 10.09 K/uL (4.8-10.8) Red Blood Count 4.66 M/uL (4.2-5.4) Hemoglobin 15.2 g/dL (12.0-16.0) Hematocrit 43.1 % (37-47) Mean Corpuscular Volume 92.5 fL (80-100) Mean Corpuscular Hemoglobin 32.6 pg (25-34) Mean Corpuscular Hemoglobin Concent 35.3 g/dl (32-36) Platelet Count 199 K/uL (130-400) Mean Platelet Volume 9.8 fL (7.4-10.4) Neutrophils (%) (Auto) 69.8 % Lymphocytes (%) (Auto) 23.3 % Monocytes (%) (Auto) 5.5 % Eosinophils (%) (Auto) 0.2 % Basophils (%) (Auto) 0.4 % Neutrophils # (Auto) 7.05 K/uL (1.4-6.5) Lymphocytes # (Auto) 2.35 K/uL (1.2-3.4) Monocytes # (Auto) 0.55 K/uL (0.11-0.59) Eosinophils # (Auto) 0.02 K/uL (0-0.5) Basophils # (Auto) 0.04 K/uL (0-0.2) RDW Standard Deviation 44.4 fL (36.4-46.3) RDW Coefficient of Variation 13.1 % (11.5-14.5) Immature Granulocyte % (Auto) 0.8 % Immature Granulocyte # (Auto) 0.08 K/uL (0.00-0.02) Anion Gap 12.0 mmol/L (3-11) Est Creatinine Clear Calc Drug Dose 104.1 ml/min Estimated GFR () 129.8 Estimated GFR (Non- 112.0 BUN/Creatinine Ratio 15.1 (10-20) Calcium Level 9.5 mg/dl (8.5-10.1) Total Bilirubin 0.5 mg/dl (0.2-1) Aspartate Amino Transf (AST/SGOT) U/L (15-37) Alanine Aminotransferase (ALT/SGPT) 23 U/L (12-78) Alkaline Phosphatase 151 U/L (45-117) Total Protein 8.1 gm/dl (6.4-8.2) Albumin 3.6 gm/dl (3.4-5.0) Lipase 214 U/L (73-393) Direct Bilirubin 0.1 mg/dl (0-0.2) Date/Time Source Procedure Growth Status 02/01/17 14:15 Stool C.difficile Toxin B Gene (PCR) - Final Positive for C. difficile toxin B gene Complete Laboratory results as reviewed by me. Medications Administered Medications (Trade) Dose Ordered Sig/Nash Route Start Time Stop Time Status Last Admin Dose Admin Ondansetron HCl (Zofran Inj) 4 mg NOW STAT IV 02/01/17 10:30 02/01/17 10:31 DC 02/01/17 11:34 4 MG Fentanyl Citrate (Fentanyl Inj) 50 mcg NOW STAT IV 02/01/17 10:30 02/01/17 10:31 DC 02/01/17 11:35 50 MCG Fentanyl Citrate (Fentanyl Inj) 50 mcg NOW STAT IV 02/01/17 12:50 02/01/17 12:51 DC 02/01/17 12:56 50 MCG Ondansetron HCl (Zofran Inj) 4 mg NOW STAT IV 02/01/17 15:10 02/01/17 15:11 DC 02/01/17 15:19 4 MG Hyoscyamine Sulfate (Levsin Tab) 0.125 mg NOW STAT SL 02/01/17 15:10 02/01/17 15:11 DC 02/01/17 15:19 0.125 MG Vancomycin HCl (Vancomycin Oral Soln) 125 mg NOW STAT PO 02/01/17 16:22 02/01/17 16:24 DC 02/01/17 16:22 125 MG Raspberry (Raspberry Syrup 5ml Cup) 5 ml TODAY@1630 ONCE PO 02/01/17 16:30 02/01/17 16:31 DC 02/01/17 16:30 5 ML ED Course 1011: The patient was evaluated in room B11B. A complete history and physical exam was performed. 1030: Fentanyl 50 mcg IV, Zofran 4 mg IV 1250: Fentanyl Citrate 50 mcg IV 1339: I updated the patient on her results. 1347: I spoke with Dr. Amado of GI. He recommended checking the stool for C-diff and treating if it's positive. Otherwise he will follow-up with the patient as an outpatient. 1350: I updated the patient on the treatment plan. She is currently eating and drinking. 1510: Levsin 0.125 mg SL, Zofran 4 mg IV 1622: Vancomycin HCl 125 mg PO 1624: I reassessed the patient at this time. She is feeling better and resting comfortably. I discussed the results and treatment plan with patient. I answered all pertaining questions that she had. She expressed understanding and verbalized agreement. The patient will be discharged home. 1630: Raspberry Syrup 5 ml PO Medical Decision This is a 56-year-old female who presents with abdominal pain and diarrhea. Differential diagnosis includes colitis, diverticulitis, gastroenteritis, C. difficile infection, foodborne illness, dehydration. I did perform a limited focused review of portions of the patient's old chart on the electronic medical record. The patient was seen in the ED on December 21 and had an x-ray of the abdomen at that time which was unremarkable. No CT was recorded. She did have a CT from July which showed findings concerning her lung as well as her bowel. She followed up with Dr. Amado and had a colonoscopy which showed inflammation. She was diagnosed with C. difficile and placed on Flagyl. I did evaluate the patient as noted above. The patient is presenting with abdominal pain similar to what she describes an episode of diverticulitis diagnosed on CT scan. I could not find any such CT scan at the time she stated she was here. She did have an x-ray and she also had C. difficile testing which was positive. She does state she was treated with Flagyl. I also discussed the CT findings with her in detail from her visit in July including her lung findings. She does have an appointment see a contracting specialist in 2 weeks. She has a prior history of lung cancer. She does continue to smoke. IV access was established. I did treat her with IV fentanyl and Zofran. She was also given normal saline IV. I did order and personally review the patient' s urinalysis as described above. I did order and review the patient's blood work as noted in the electronic medical record. Her white blood cell count is not elevated. I did order a CT of the abdomen and pelvis. I did review the images myself as well as the radiology report as described above. I discussed the findings with the patient including the lung findings. She was given additional Zofran and fentanyl IV. I did discuss the case with Dr. Aneudy barlow gastroenterology. He advised follow up in the office and treatment with vancomycin should she have C. difficile again. I did order a stool culture and C. difficile testing but the patient has not been able to give us a sample. We did give her food and water and after some time she was able to give us a sample. The C. difficile antigen testing came back positive. I did discuss the test results with her. She was given vancomycin here and discharged with a 2 week prescription for vancomycin. She will follow with her doctor. [place] Drug Monitoring Program Search Results: patient reviewed within database Drug Monitoring Findings: No matching patients. Medication Reconcilliation Current Medication List: was personally reviewed by me Blood Pressure Screening Patient's blood pressure: Elevated blood pressure Blood pressure disposition: Referred to PCP Consults Time Called: 1346 Consulting Physician: Dr. Amado Returned Call: [phone] Amado of GI. He recommended checking the stool for C-diff and treating if it's positive. Otherwise he will follow-up with the patient as an outpatient. Impression Primary Impression: C. difficile colitis Scribe Attestation The scribe's documentation has been prepared under my direct and personally reviewed by me in its entirety. I confirm that the note above accurately reflects all work, treatment, procedures, and medical decision making performed by me. Departure Information Dispostion Home / Self-Care Prescriptions Vancomycin Hcl (Vancomycin) 125 Mg Cap 1 CAP PO QID for 14 Days, #56 CAP Prov: Javier Daily M.D. 02/01/17 Referrals No Doctor, Assigned (PCP) Forms Call Back Authorization, HOME CARE DOCUMENTATION FORM, IMPORTANT VISIT INFORMATION Patient Instructions Clostridium Difficile Infec, My [facility] Additional Instructions You have been examined and treated today on an emergency basis only. This is not a substitute for, or an effort to provide, complete comprehensive medical care. It is impossible to recognize and treat all injuries or illnesses in a single emergency department visit. It is therefore important that you follow up closely with your physician. Call as soon as possible for an appointment. Return for worsening symptoms or if you any other concerning symptoms.
== END 2017-02-01 16:56 | disposition home or self-care (01) ==
LOC: C.EDB 09:16
DX: A04.72 Enterocolitis due to Clostridium difficile, not specified as recurrent (principal); K57.90 Diverticulosis of intestine, part unspecified, without perforation or abscess without bleeding; R16.0 Hepatomegaly, not elsewhere classified; K76.0 Fatty (change of) liver, not elsewhere classified; F17.210 Nicotine dependence, cigarettes, uncomplicated; Z85.118 Personal history of other malignant neoplasm of bronchus and lung

== ENCOUNTER → 2017-04-14 | Outpatient (CLI) | payer OTHER ==
[~2017-04-14] MED LIST changes: +VANC5CAP PO; -VLT/50 PO
== END | disposition home or self-care (01) ==
LOC: C.LABSPEC 12:02
PROVIDERS: ATTEND Registered Nurse
DX: R19.7 Diarrhea, unspecified (principal)

== ENCOUNTER → 2017-06-02 | Outpatient (CLI) | payer OTHER ==
[~2017-06-02] MED LIST changes: +FIDA1TAB PO; +METH10TA2 PO; +VANCOMYCIN; +[UNRECOGNIZED DRUG - CODE] PO
[2017-06-02 18:05] LABS: BASO % 0.4 %; BASO ABS # 0.04 K/uL (0-0.2); EOS ABS # 0.09 K/uL (0-0.5); HEMATOCRIT 41.6 % (37-47); HEMOGLOBIN 14.3 g/dL (12.0-16.0); IG# 0.02 K/uL (0.00-0.02); LYMPH % 33.3 %; LYMPH ABS # 3.04 K/uL (1.2-3.4); MEAN CELL VOLUME 92.7 fL (80-100); MEAN CORPUSCULAR HEMOGLOBIN 31.8 pg (25-34); MEAN CORPUSCULAR HGB CONC 34.4 g/dl (32-36); MEAN PLATELET VOLUME 10.6 fL (7.4-10.4); MONO % 7.1 %; MONO ABS # 0.65 K/uL (0.11-0.59); NEUT ABS # 5.28 K/uL (1.4-6.5); PLATELET COUNT 193 K/uL (130-400); RED CELL DISTRIBUTION WIDTH CV 13.1 % (11.5-14.5); RED CELL DISTRIBUTION WIDTH SD 44.5 fL (36.4-46.3); WHITE BLOOD COUNT 9.12 K/uL (4.8-10.8)
[2017-06-02 18:09] LABS: ALT/SGPT 45 U/L (12-78); AST/SGOT 55 U/L (15-37); BLOOD UREA NITROGEN 6 mg/dl (7-18); CALCIUM 9.2 mg/dl (8.5-10.1); CARBON DIOXIDE 22 mmol/L (21-32); CREATININE 0.53 mg/dl (0.60-1.20); GLUCOSE 85 mg/dl (70-99); POTASSIUM 3.6 mmol/L (3.5-5.1); SODIUM 132 mmol/L (136-145)
[2017-06-02 18:13] LABS: ALKALINE PHOSPHATASE 146 U/L (45-117); TOTAL PROTEIN 7.7 gm/dl (6.4-8.2)
== END | disposition home or self-care (01) ==
LOC: C.LABPBG 13:29
PROVIDERS: ATTEND Registered Nurse
DX: K52.9 Noninfective gastroenteritis and colitis, unspecified (principal)

== ENCOUNTER → 2017-06-03 | Outpatient (CLI) | payer OTHER ==
--- NOTE | 2017-06-03 10:44 | DIAGNOSTIC IMAGING REPORT ---
CT SCAN OF THE ABDOMEN AND PELVIS WITHOUT CONTRAST CLINICAL HISTORY: R10.9 Abdominal painB96.89 Clostridium difficile [id number] COMPARISON STUDY: 02/01/2017 TECHNIQUE: CT scan of the abdomen and pelvis was performed from the lung bases to the proximal femurs. Images are reviewed in the axial, sagittal, and coronal planes. IV contrast was not administered for this examination. A dose lowering technique was utilized adhering to the principles of ALARA. CT DOSE: 371.98 mGy.cm FINDINGS: Lower chest: The heart is normal in size and configuration, without pericardial effusion. The lung bases and pleural spaces are clear. Liver: There is hepatic steatosis. There is pneumobilia. No focal hepatic masses are visualized. Gallbladder: Surgically absent Spleen: Normal in size and attenuation. Pancreas: Unremarkable. Adrenal glands: Unremarkable. Kidneys: The unenhanced kidneys are normal in size without hydronephrosis. There is no contour deforming renal mass lesion. No renal calculi are identified. Bowel: There are no transition zones to indicate bowel obstruction. There is some mucosal fat hypertrophy within the ascending colon. This finding has been reported chronic inflammatory bowel disease. There is no evidence of acute appendicitis. There is no evidence of acute diverticulitis. Scattered colonic diverticula are visualized. Peritoneum: There is no intraperitoneal free air or abdominal ascites. There is a small fat-containing inguinal hernia Vasculature: The abdominal aorta is normal in course and caliber. Adenopathy: None. Pelvic viscera: The uterus is surgically absent Skeletal structures: No destructive osseous lesions are seen. IMPRESSION: 1. No evidence of bowel obstruction. No evidence of free air 2. Diverticulosis. No evidence of acute diverticulitis 3. Normal appendix 4. Colonic submucosal fat hypertrophy 5. Hepatic steatosis. Surgically absent gallbladder. Pneumobilia. Electronically signed by: Adrian Lance M.D. 06/03/2017 10:43 AM Dictated Date/Time: 06/03/2017 10:39 AM
== END | disposition home or self-care (01) ==
LOC: C.CTS 10:09
PROVIDERS: ATTEND Registered Nurse
DX: R10.9 Unspecified abdominal pain (principal); K52.9 Noninfective gastroenteritis and colitis, unspecified; B96.89 Other specified bacterial agents as the cause of diseases classified elsewhere; K76.0 Fatty (change of) liver, not elsewhere classified; K57.92 Diverticulitis of intestine, part unspecified, without perforation or abscess without bleeding

== ENCOUNTER 2017-06-04 09:01 | Inpatient (IN) | payer OTHER ==
[~2017-06-04] VITALS: Ht 149.9 cm; Wt 52.9 kg
[~2017-06-04 09:01] MED LIST changes: -FIDA1TAB PO; -METH10TA2 PO; -VANCOMYCIN; -[UNRECOGNIZED DRUG - CODE] PO
[2017-06-04] MEDS ORDERED: SODIUM CHLORIDE 0.9% 1000ML 1,000 ML IV SCH (10:30)
[2017-06-04] MEDS ORDERED: ONDANSETRON INJ 2 MG/ML 2 ML VIAL IV STA (10:30)
[2017-06-04] MEDS ORDERED: FENTANYL CITRATE INJ 50 MCG/1 ML 2 ML VIAL IV ONE ×2 (10:30→13:15)
[2017-06-04] MEDS ORDERED: METH10TA2 PO (10:45)
[2017-06-04] MEDS ORDERED: VANCOMYCIN HCL 125 MG/2.5ML SOLN PO SCH (10:45)
[2017-06-04] MEDS ORDERED: RASPBERRY SYRUP 5 ML UDP PO ONE (10:45)
--- NOTE | 2017-06-04 11:11 | EMERGENCY ROOM VISIT NOTE ---
History First contact with patient: 09:20 (Angelo Lugo MD) First contact with patient: 09:20 (Kalen Figueroa M.D.) Chief Complaint: ABDOMINAL PAIN Stated Complaint: C DIFF,RIGHT HEEL PAIN Nursing Triage Summary: Patient reports "I was diagnosed with C-Diff yesterday. Had it about 4 time already. They did not put me on meds or pain meds for it. They told me my instestines where very inflamed. 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 She presents with non-bloody diarrhea 3-5 x/day nausea/vomiting and abdominal pain. Patient is being followed by Gastroenterology outpatient( Dr. Amado) and was most recently placed on PO vanc x 6 weeks starting 04/14/17. She reports since starting Vancomycin, symptoms, initially improved but worsened again 3 wks ago and after completion. Abdominal pain is intermittent generalized , worse with eating. She denies fevers, chills. She was seen at [facility] yesterday ( Jennifer Harris) and had positive repeat C Diff. ,unremarkable CBC, mild hyponatremia AT 132, AST 55,Alk Phos 146, neg. Lipase neg. CT Abdomen showed diverticulosis without diverticulitis. colonic submucosal fat hypertrophy. Source of History: patient, family Onset: 3 wks ago Position: abdomen Quality: dull Timing: intermittent Modifying Factors (Worsening): eating Associated Symptoms: + nausea, + vomiting, + fatigue, + weakness, No hematochezia (Angelo Lugo MD) Review of Systems Pt denies headache, change in vision, fevers, chest pain, shortness of breath pain with urination, and melena. Pt reports , nausea, vomiting, diarrhea as per HPI (Angelo Lugo MD) Past Medical/Surgical History Medical Problems: (1) Hx of cancer of lung Surgical Problems: (1) History of cholecystectomy (Kalen Figueroa M.D.) Family History Cancer Heart disease Hypertension (Angelo Lugo MD) Cancer Heart disease Hypertension (Kalen Figueroa M.D.) Social History Smoking Status: Current Every Day Smoker Alcohol Use: none Occupation Status: unemployed (Angelo Lugo MD) Current/Historical Medications Scheduled Kouhzruijn-Agrrppfebemwh-Wlsmy (Fioricet), 1 CAP PO UD Methadone Hcl (Dolophine), 40 MG PO QAM Nortriptyline (Pamelor), 25 MG PO HS Scheduled PRN Albuterol Hfa (Ventolin Hfa), 2-4 PUFFS INH Q6H PRN for SOB/Wheezing Physical Exam Vital Signs Date Time Temp Pulse Resp B/P (MAP) Pulse Ox O2 Delivery O2 Flow Rate FiO2 06/04/17 11:47 85 16 132/78 98 Room Air 06/04/17 09:02 36.7 96 18 160/83 97 Room Air (Kalen Figueroa M.D.) Physical Exam GENERAL: alert, mild distress, EYE EXAM: normal conjunctiva, PERRL and EOM's grossly intact OROPHARYNX: no exudate, no erythema, lips, buccal mucosa, and tongue normal and mucous membranes are moist NECK: supple, no nuchal rigidity, no adenopathy, non-tender LUNGS: Clear to auscultation. Normal chest wall mechanics HEART: no murmurs, S1 normal and S2 normal ABDOMEN: Abdominal distension, non-specific generalized tenderness to palpation , worst in epigastrium, no masses, no rebound or guarding. SKIN: no rashes and no bruising UPPER EXTREMITIES: upper extremities are grossly normal. LOWER EXTREMITIES: No pitting edema. NEURO EXAM: Normal sensorium, cranial nerves II-XII grossly intact, normal speech (Angelo Lugo MD) Medical Decision & Procedures Laboratory Results 06/04/17 11:32 Red Blood Count 4.06, Mean Corpuscular Volume 93.8, Mean Corpuscular Hemoglobin 32.3, Mean Corpuscular Hemoglobin Concent 34.4, Mean Platelet Volume 9.3, Neutrophils (%) (Auto) 62.7, Lymphocytes (%) (Auto) 29.5, Monocytes (%) (Auto) 6.4, Eosinophils (%) (Auto) 0.6, Basophils (%) (Auto) 0.6, Neutrophils # (Auto) 5.13, Lymphocytes # (Auto) 2.41, Monocytes # (Auto) 0.52, Eosinophils # (Auto) 0.05, Basophils # (Auto) 0.05 06/04/17 11:32 06/04/17 13:00 Test 06/04/17 11:32 White Blood Count 8.18 K/uL (4.8-10.8) Red Blood Count 4.06 M/uL (4.2-5.4) Hemoglobin 13.1 g/dL (12.0-16.0) Hematocrit 38.1 % (37-47) Mean Corpuscular Volume 93.8 fL (80-100) Mean Corpuscular Hemoglobin 32.3 pg (25-34) Mean Corpuscular Hemoglobin Concent 34.4 g/dl (32-36) Platelet Count 181 K/uL (130-400) Mean Platelet Volume 9.3 fL (7.4-10.4) Neutrophils (%) (Auto) 62.7 % Lymphocytes (%) (Auto) 29.5 % Monocytes (%) (Auto) 6.4 % Eosinophils (%) (Auto) 0.6 % Basophils (%) (Auto) 0.6 % Neutrophils # (Auto) 5.13 K/uL (1.4-6.5) Lymphocytes # (Auto) 2.41 K/uL (1.2-3.4) Monocytes # (Auto) 0.52 K/uL (0.11-0.59) Eosinophils # (Auto) 0.05 K/uL (0-0.5) Basophils # (Auto) 0.05 K/uL (0-0.2) RDW Standard Deviation 44.2 fL (36.4-46.3) RDW Coefficient of Variation 13.0 % (11.5-14.5) Immature Granulocyte % (Auto) 0.2 % Immature Granulocyte # (Auto) 0.02 K/uL (0.00-0.02) Anion Gap 7.0 mmol/L (3-11) Est Creatinine Clear Calc Drug Dose 93.3 ml/min Estimated GFR () 125.4 Estimated GFR (Non- 108.2 BUN/Creatinine Ratio 11.4 (10-20) Calcium Level 8.8 mg/dl (8.5-10.1) Total Bilirubin 0.6 mg/dl (0.2-1) Aspartate Amino Transf (AST/SGOT) U/L (15-37) Alanine Aminotransferase (ALT/SGPT) 40 U/L (12-78) Alkaline Phosphatase 124 U/L (45-117) Total Protein 7.0 gm/dl (6.4-8.2) Albumin 3.5 gm/dl (3.4-5.0) Globulin 3.5 gm/dl (2.5-4.0) Albumin/Globulin Ratio 1.0 (0.9-2) Lipase 95 U/L (73-393) (Kalen Figueroa M.D.) Laboratory results per my review. (Angelo Lugo MD) Medications Administered Medications (Trade) Dose Ordered Sig/Nash Route Start Time Stop Time Status Last Admin Dose Admin Sodium Chloride 1,000 ml @ 999 mls/hr Q1H1M IV 06/04/17 10:30 07/04/17 10:29 06/04/17 11:42 999 MLS/HR Ondansetron HCl (Zofran Inj) 4 mg NOW STAT IV 06/04/17 10:30 06/04/17 10:36 DC 06/04/17 11:42 4 MG Fentanyl Citrate (Fentanyl Inj) 50 mcg NOW ONCE IV 06/04/17 10:30 06/04/17 10:36 DC 06/04/17 11:42 50 MCG Vancomycin HCl (Vancomycin Oral Soln) 125 mg Q6H PO 06/04/17 10:45 06/18/17 10:44 06/04/17 10:45 125 MG Raspberry (Raspberry Syrup 5ml Cup) 5 ml 1045 ONCE PO 06/04/17 10:45 06/04/17 10:59 DC 06/04/17 11:43 5 ML Fentanyl Citrate (Fentanyl Inj) 100 mcg NOW ONCE IV 06/04/17 13:15 06/04/17 13:16 DC 06/04/17 13:15 100 MCG (Kalen Figueroa M.D.) Medical Decision 56yo F with history of recurrent C DIff colitis x several months s/p 2 courses of flagyl, s/p 2 courses of vancomycin PO including 6 week course po vancomycin initiated by Gastroenterology 04/14 presenting with abdominal pain , n/v, diarrhea, repeat C diff positive, CT abdomen with submucosal fat hypertrophy and Diverticulosis without acute diverticulitis. She arrives afebrile with abdominal distension, generalized abdominal tenderness, no leukocytosis, (Angelo Lugo MD) Head Trauma GCS Score: 15 (Angelo Lugo MD) Departure Information Referrals Jose David Duke PA-C (PCP) Patient Instructions My [facility] Resident Tracking Resident Involvement: Resident Care Provided Care Provided: Adult ED (Angelo Lugo MD)
[2017-06-04 11:43] LABS: BASO % 0.6 %; BASO ABS # 0.05 K/uL (0-0.2); EOS % 0.6 %; EOS ABS # 0.05 K/uL (0-0.5); HEMATOCRIT 38.1 % (37-47); HEMOGLOBIN 13.1 g/dL (12.0-16.0); IG# 0.02 K/uL (0.00-0.02); LYMPH % 29.5 %; LYMPH ABS # 2.41 K/uL (1.2-3.4); MEAN CELL VOLUME 93.8 fL (80-100); MEAN CORPUSCULAR HEMOGLOBIN 32.3 pg (25-34); MEAN CORPUSCULAR HGB CONC 34.4 g/dl (32-36); MEAN PLATELET VOLUME 9.3 fL (7.4-10.4); MONO % 6.4 %; MONO ABS # 0.52 K/uL (0.11-0.59); NEUT % 62.7 %; NEUT ABS # 5.13 K/uL (1.4-6.5); PLATELET COUNT 181 K/uL (130-400); RED CELL DISTRIBUTION WIDTH SD 44.2 fL (36.4-46.3); WHITE BLOOD COUNT 8.18 K/uL (4.8-10.8)
[2017-06-04 12:07] LABS: ALBUMIN 3.5 gm/dl (3.4-5.0); CALCIUM 8.8 mg/dl (8.5-10.1); CREATININE 0.5 mg/dl (0.60-1.20)
[2017-06-04] MEDS ORDERED: DEXTROSE 50% 50 ML SYR IV STA (12:25)
--- NOTE | 2017-06-04 13:41 | DIAGNOSTIC IMAGING REPORT ---
R ANKLE 2 VIEWS CLINICAL HISTORY: Right ankle pain. Heel pain. COMPARISON: None FINDINGS: Alignment of the right ankle is anatomic. There is no acute fracture. Talar dome is intact. There is cortical irregularity of the posterior inferior calcaneus, a nonspecific finding which is likely chronic. IMPRESSION: 1. No acute fracture or dislocation of the right ankle. 2. Cortical irregularity of the posterior inferior calcaneus. This finding is nonspecific but not acute. Electronically signed by: Jamie Guajardo M.D. 06/04/2017 1:39 PM Dictated Date/Time: 06/04/2017 1:37 PM
[2017-06-04] MEDS ORDERED: POLYETHYLENE (MIRALAX) 17 GM PACK PO PRN (14:00)
[2017-06-04] MEDS ORDERED: ACETAMINOPHEN 325 MG TAB PO PRN (14:00)
[2017-06-04] MEDS ORDERED: MAGNESIUM HYDROXIDE SUSP 30 ML UDC PO PRN (14:00)
[2017-06-04] MEDS ORDERED: ONDANSETRON INJ 2 MG/ML 2 ML VIAL IV PRN (14:00)
--- NOTE | 2017-06-04 14:02 | EMERGENCY ROOM VISIT NOTE ---
History Report prepared by Pacoibe: Wilda Coker Under the Supervision of: Dr. Kalen Figueroa M.D. First contact with patient: 09:20 Chief Complaint: ABDOMINAL PAIN Stated Complaint: C DIFF,RIGHT HEEL PAIN Nursing Triage Summary: Patient reports "I was diagnosed with C-Diff yesterday. Had it about 4 time already. They did not put me on meds or pain meds for it. They told me my instestines where very inflamed. I had a CT done yesterday." History of Present Illness The patient is a 56 year old female who presents to the Emergency Room with complaints of intermittent abdominal pain since waking this morning. She rates her discomfort as an 8/10 in severity. 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 She states the last time she was treated with antibiotics was between 1 and 3 weeks ago. She also complains of abdominal pain that is worse with eating. After developing diarrhea again a few days ago, she saw her Gastroenterologists office yesterday and had a CT scan and produced a positive C-Diff test. The patient also complains of abdominal distension and right heel pain. She denies any known injury to the foot. Source of History: patient Onset: upon waking this morning Position: abdomen Symptom Intensity: 8/10 Timing: intermittent Associated Symptoms: + diarrhea Review of Systems See HPI for pertinent positives and negatives. A total of ten systems were reviewed and were otherwise negative. Past Medical & Surgical Medical Problems: (1) Abdominal pain (2) Diarrhea (3) Hx of cancer of lung Surgical Problems: (1) History of cholecystectomy Family History Cancer Heart disease Hypertension Social History Smoking Status: Current Every Day Smoker Alcohol Use: none Drug Use: none Marital Status: Housing Status: lives with family Occupation Status: unemployed Current/Historical Medications Scheduled Becdeoyzfg-Rnkssjpklzgdw-Oprtc (Fioricet), 1 CAP PO UD Methadone Hcl (Dolophine), 40 MG PO QAM Nortriptyline (Pamelor), 25 MG PO HS Scheduled PRN Albuterol Hfa (Ventolin Hfa), 2-4 PUFFS INH Q6H PRN for SOB/Wheezing Allergies Coded Allergies: Morphine (Verified Allergy, Unknown, HIVES, 06/04/17) Physical Exam Vital Signs Date Time Temp Pulse Resp B/P (MAP) Pulse Ox O2 Delivery O2 Flow Rate FiO2 06/04/17 13:45 72 16 137/76 98 Room Air 06/04/17 11:47 85 16 132/78 98 Room Air 06/04/17 09:02 36.7 96 18 160/83 97 Room Air Physical Exam GENERAL: Awake, alert, uncomfortable-appearing, in no distress HENT: Normocephalic, atraumatic. Oropharynx unremarkable. Dry cracked mucous membranes. EYES: Normal conjunctiva. Sclera non-icteric. NECK: Supple. No nuchal rigidity. FROM. No JVD. RESPIRATORY: Clear to auscultation. CARDIAC: Regular rate, normal rhythm. Extremities warm and well perfused. Pulses equal. ABDOMEN: Soft, non-distended. Generalized abdominal tenderness. No peritoneal signs. No rebound or guarding. No masses. RECTAL: Deferred. MUSCULOSKELETAL: Chest examination reveals no tenderness. The back is symmetrical on inspection without obvious abnormality. There is no CVA tenderness to palpation. No joint edema. LOWER EXTREMITIES: Minimal tenderness to the right lateral malleolus, full ROM intact. Calves are equal size bilaterally and non-tender. No edema. No discoloration. NEURO: Normal sensorium. No sensory or motor deficits noted. SKIN: No rash or jaundice noted. Medical Decision & Procedures ER Provider Diagnostic Interpretation: Radiology results as stated below per my review and radiologist interpretation: R ANKLE 2 VIEWS CLINICAL HISTORY: Right ankle pain. Heel pain. COMPARISON: None FINDINGS: Alignment of the right ankle is anatomic. There is no acute fracture. Talar dome is intact. There is cortical irregularity of the posterior inferior calcaneus, a nonspecific finding which is likely chronic. IMPRESSION: 1. No acute fracture or dislocation of the right ankle. 2. Cortical irregularity of the posterior inferior calcaneus. This finding is nonspecific but not acute. Electronically signed by: Jamie Guajardo M.D. 06/04/2017 1:39 PM Laboratory Results 06/04/17 11:32 Red Blood Count 4.06, Mean Corpuscular Volume 93.8, Mean Corpuscular Hemoglobin 32.3, Mean Corpuscular Hemoglobin Concent 34.4, Mean Platelet Volume 9.3, Neutrophils (%) (Auto) 62.7, Lymphocytes (%) (Auto) 29.5, Monocytes (%) (Auto) 6.4, Eosinophils (%) (Auto) 0.6, Basophils (%) (Auto) 0.6, Neutrophils # (Auto) 5.13, Lymphocytes # (Auto) 2.41, Monocytes # (Auto) 0.52, Eosinophils # (Auto) 0.05, Basophils # (Auto) 0.05 06/04/17 11:32 06/04/17 13:00 Test 06/04/17 11:32 06/04/17 13:00 White Blood Count 8.18 K/uL (4.8-10.8) Red Blood Count 4.06 M/uL (4.2-5.4) Hemoglobin 13.1 g/dL (12.0-16.0) Hematocrit 38.1 % (37-47) Mean Corpuscular Volume 93.8 fL (80-100) Mean Corpuscular Hemoglobin 32.3 pg (25-34) Mean Corpuscular Hemoglobin Concent 34.4 g/dl (32-36) Platelet Count 181 K/uL (130-400) Mean Platelet Volume 9.3 fL (7.4-10.4) Neutrophils (%) (Auto) 62.7 % Lymphocytes (%) (Auto) 29.5 % Monocytes (%) (Auto) 6.4 % Eosinophils (%) (Auto) 0.6 % Basophils (%) (Auto) 0.6 % Neutrophils # (Auto) 5.13 K/uL (1.4-6.5) Lymphocytes # (Auto) 2.41 K/uL (1.2-3.4) Monocytes # (Auto) 0.52 K/uL (0.11-0.59) Eosinophils # (Auto) 0.05 K/uL (0-0.5) Basophils # (Auto) 0.05 K/uL (0-0.2) RDW Standard Deviation 44.2 fL (36.4-46.3) RDW Coefficient of Variation 13.0 % (11.5-14.5) Immature Granulocyte % (Auto) 0.2 % Immature Granulocyte # (Auto) 0.02 K/uL (0.00-0.02) Anion Gap 7.0 mmol/L (3-11) Est Creatinine Clear Calc Drug Dose 93.3 ml/min Estimated GFR () 125.4 Estimated GFR (Non- 108.2 BUN/Creatinine Ratio 11.4 (10-20) Calcium Level 8.8 mg/dl (8.5-10.1) Total Bilirubin 0.6 mg/dl (0.2-1) Aspartate Amino Transf (AST/SGOT) U/L (15-37) Alanine Aminotransferase (ALT/SGPT) 40 U/L (12-78) Alkaline Phosphatase 124 U/L (45-117) Total Protein 7.0 gm/dl (6.4-8.2) Albumin 3.5 gm/dl (3.4-5.0) Globulin 3.5 gm/dl (2.5-4.0) Albumin/Globulin Ratio 1.0 (0.9-2) Lipase 95 U/L (73-393) Magnesium Level 1.9 mg/dl (1.8-2.4) Laboratory results reviewed by me Medications Administered Medications (Trade) Dose Ordered Sig/Nash Route Start Time Stop Time Status Last Admin Dose Admin Sodium Chloride 1,000 ml @ 999 mls/hr Q1H1M IV 06/04/17 10:30 07/04/17 10:29 06/04/17 11:42 999 MLS/HR Ondansetron HCl (Zofran Inj) 4 mg NOW STAT IV 06/04/17 10:30 06/04/17 10:36 DC 06/04/17 11:42 4 MG Fentanyl Citrate (Fentanyl Inj) 50 mcg NOW ONCE IV 06/04/17 10:30 06/04/17 10:36 DC 06/04/17 11:42 50 MCG Vancomycin HCl (Vancomycin Oral Soln) 125 mg Q6H PO 06/04/17 10:45 06/04/17 15:16 DC 06/04/17 10:45 125 MG Raspberry (Raspberry Syrup 5ml Cup) 5 ml 1045 ONCE PO 06/04/17 10:45 06/04/17 10:59 DC 06/04/17 11:43 5 ML Fentanyl Citrate (Fentanyl Inj) 100 mcg NOW ONCE IV 06/04/17 13:15 06/04/17 13:16 DC 06/04/17 13:15 100 MCG ED Course 1200: The patient was evaluated in room A10. A complete history and physical exam was performed. 1310: I discussed the patients case with Dr. Damico, [facility] Hospitalist. The patient will be further evaluated. Medical Decision I reviewed the patient's past medical history, medications, and the nursing notes as described above. The patient's presentation and history were concerning for appendicitis, diverticulitis, PUD, biliary pathology, UTI, pancreatitis, obstruction, mesenteric ischemia, aortic pathology, infections, inflammatory bowel disease, renal colic, as well as others were entertained. The patient is a 56-year-old woman with a past medical history of recurrent C. difficile who presents emergency Department with persistent abdominal pain in the setting of being newly diagnosed again yesterday in her GI clinic per hpi. On arrival the patient is uncomfortable but no acute distress, afebrile stable vital signs. This recurrence of the patient's C. difficile will be her third episode since this fall. While labs were reassuring with WBC within normal limits and CT of the abdomen and pelvis done yesterday unremarkable, the patient continues to be symptomatic, particularly with pain, becoming tearful with palpation despite fentanyl. Patient given Vancomycin PO. Resident d/w Dr. Sheffield, GI on-call, who agrees admission is appropriate. Resident d/w Dr. Arboleda, [facility] [place], who will admit the patient for further management. I discussed the case with the resident physician, examined the patient, and agree with the findings and plan as documented in the residents note unless otherwise clarified here by me. Medication Reconcilliation Current Medication List: was personally reviewed by me Blood Pressure Screening Patient's blood pressure: Elevated blood pressure Blood pressure disposition: Elevated BP felt to be situational Consults Time Called: 1305 Consulting Physician: Dr. Damico, [facility] Hospitalist Returned Call: 1310 I discussed the patients case with Dr. Damico, [facility] Hospitalist. The patient will be further evaluated. Impression Primary Impression: C. difficile colitis Scribe Attestation The scribe's documentation has been prepared under my direction and personally reviewed by me in its entirety. I confirm that the note above accurately reflects all work, treatment, procedures, and medical decision making performed by me. Departure Information Referrals Jose David Duke PA-C (PCP) Patient Instructions My [facility]
--- NOTE | 2017-06-04 14:28 | EMERGENCY ROOM VISIT NOTE ---
History First contact with patient: 09:20 Chief Complaint: ABDOMINAL PAIN Stated Complaint: C DIFF,RIGHT HEEL PAIN Nursing Triage Summary: Patient reports "I was diagnosed with C-Diff yesterday. Had it about 4 time already. They did not put me on meds or pain meds for it. They told me my instestines where very inflamed. I had a CT done yesterday." History of Present Illness The patient is a 56 year old female with recurrent C diff Colitis since November 2016 s/p multiple treatment courses of including Flagyl and later PO vancomycin. She presents with non-bloody diarrhea 3-5 x/day nausea/vomiting and abdominal pain. Patient is being followed by Gastroenterology outpatient( Dr. Amado) and was most recently placed on PO vanc x 6 weeks starting 04/14/17. She reports since starting Vancomycin, symptoms, initially improved but worsened again 3 wks ago and after completion. Abdominal pain is intermittent generalized , worse with eating. She denies fevers, chills. She was seen at [facility] Gastroenterology clinic yesterday ( Jennifer Harris) and had positive repeat C Diff. ,unremarkable CBC, mild hyponatremia AT 132, AST 55,Alk Phos 146, neg. Lipase neg. CT Abdomen showed diverticulosis without diverticulitis. colonic submucosal fat hypertrophy. She also reports Acute right heel pain that started overnight worse with walking. Review of Systems Pt denies headache, change in vision, fevers, chest pain, shortness of breath, , pain with urination, and melena. Pt reports nausea, abdominal pain, vomiting, diarrhea as per HPI Past Medical/Surgical History Medical Problems: (1) Abdominal pain (2) Diarrhea (3) Hx of cancer of lung Surgical Problems: (1) History of cholecystectomy Family History Cancer Heart disease Hypertension Stroke Social History Smoking Status: Current Every Day Smoker Alcohol Use: none Drug Use: none Marital Status: Housing Status: lives with family Occupation Status: unemployed Current/Historical Medications Scheduled Mmcvayfyoz-Posgxlqnwktnh-Jxied (Fioricet), 1 CAP PO UD Methadone Hcl (Dolophine), 40 MG PO QAM Nortriptyline (Pamelor), 25 MG PO HS Scheduled PRN Albuterol Hfa (Ventolin Hfa), 2-4 PUFFS INH Q6H PRN for SOB/Wheezing Physical Exam Vital Signs Date Time Temp Pulse Resp B/P (MAP) Pulse Ox O2 Delivery O2 Flow Rate FiO2 06/04/17 13:45 72 16 137/76 98 Room Air 06/04/17 11:47 85 16 132/78 98 Room Air 06/04/17 09:02 36.7 96 18 160/83 97 Room Air Physical Exam GENERAL: alert, mild distress, EYE EXAM: normal conjunctiva, PERRL and EOM's grossly intact OROPHARYNX: no exudate, no erythema, lips, buccal mucosa, and tongue normal and mucous membranes are moist NECK: supple, no nuchal rigidity, no adenopathy, non-tender LUNGS: Clear to auscultation. Normal chest wall mechanics HEART: no murmurs, S1 normal and S2 normal ABDOMEN: Abdominal distension, non-specific generalized tenderness to palpation , worst in epigastrium, no masses, no rebound or guarding. SKIN: no rashes and no bruising UPPER EXTREMITIES: upper extremities are grossly normal. LOWER EXTREMITIES: No pitting edema. NEURO EXAM: Normal sensorium, cranial nerves II-XII grossly intact, normal speech Medical Decision & Procedures Laboratory Results 06/04/17 11:32 Red Blood Count 4.06, Mean Corpuscular Volume 93.8, Mean Corpuscular Hemoglobin 32.3, Mean Corpuscular Hemoglobin Concent 34.4, Mean Platelet Volume 9.3, Neutrophils (%) (Auto) 62.7, Lymphocytes (%) (Auto) 29.5, Monocytes (%) (Auto) 6.4, Eosinophils (%) (Auto) 0.6, Basophils (%) (Auto) 0.6, Neutrophils # (Auto) 5.13, Lymphocytes # (Auto) 2.41, Monocytes # (Auto) 0.52, Eosinophils # (Auto) 0.05, Basophils # (Auto) 0.05 06/04/17 11:32 06/04/17 13:00 Test 06/04/17 11:32 06/04/17 13:00 White Blood Count 8.18 K/uL (4.8-10.8) Red Blood Count 4.06 M/uL (4.2-5.4) Hemoglobin 13.1 g/dL (12.0-16.0) Hematocrit 38.1 % (37-47) Mean Corpuscular Volume 93.8 fL (80-100) Mean Corpuscular Hemoglobin 32.3 pg (25-34) Mean Corpuscular Hemoglobin Concent 34.4 g/dl (32-36) Platelet Count 181 K/uL (130-400) Mean Platelet Volume 9.3 fL (7.4-10.4) Neutrophils (%) (Auto) 62.7 % Lymphocytes (%) (Auto) 29.5 % Monocytes (%) (Auto) 6.4 % Eosinophils (%) (Auto) 0.6 % Basophils (%) (Auto) 0.6 % Neutrophils # (Auto) 5.13 K/uL (1.4-6.5) Lymphocytes # (Auto) 2.41 K/uL (1.2-3.4) Monocytes # (Auto) 0.52 K/uL (0.11-0.59) Eosinophils # (Auto) 0.05 K/uL (0-0.5) Basophils # (Auto) 0.05 K/uL (0-0.2) RDW Standard Deviation 44.2 fL (36.4-46.3) RDW Coefficient of Variation 13.0 % (11.5-14.5) Immature Granulocyte % (Auto) 0.2 % Immature Granulocyte # (Auto) 0.02 K/uL (0.00-0.02) Anion Gap 7.0 mmol/L (3-11) Est Creatinine Clear Calc Drug Dose 93.3 ml/min Estimated GFR () 125.4 Estimated GFR (Non- 108.2 BUN/Creatinine Ratio 11.4 (10-20) Calcium Level 8.8 mg/dl (8.5-10.1) Total Bilirubin 0.6 mg/dl (0.2-1) Aspartate Amino Transf (AST/SGOT) U/L (15-37) Alanine Aminotransferase (ALT/SGPT) 40 U/L (12-78) Alkaline Phosphatase 124 U/L (45-117) Total Protein 7.0 gm/dl (6.4-8.2) Albumin 3.5 gm/dl (3.4-5.0) Globulin 3.5 gm/dl (2.5-4.0) Albumin/Globulin Ratio 1.0 (0.9-2) Lipase 95 U/L (73-393) Magnesium Level 1.9 mg/dl (1.8-2.4) Laboratory results per my review. Medications Administered Medications (Trade) Dose Ordered Sig/Nash Route Start Time Stop Time Status Last Admin Dose Admin Sodium Chloride 1,000 ml @ 999 mls/hr Q1H1M IV 06/04/17 10:30 06/04/17 15:34 DC 06/04/17 11:42 999 MLS/HR Ondansetron HCl (Zofran Inj) 4 mg NOW STAT IV 06/04/17 10:30 06/04/17 10:36 DC 06/04/17 11:42 4 MG Fentanyl Citrate (Fentanyl Inj) 50 mcg NOW ONCE IV 06/04/17 10:30 06/04/17 10:36 DC 06/04/17 11:42 50 MCG Vancomycin HCl (Vancomycin Oral Soln) 125 mg Q6H PO 06/04/17 10:45 06/04/17 15:16 DC 06/04/17 10:45 125 MG Raspberry (Raspberry Syrup 5ml Cup) 5 ml 1045 ONCE PO 06/04/17 10:45 06/04/17 10:59 DC 06/04/17 11:43 5 ML Fentanyl Citrate (Fentanyl Inj) 100 mcg NOW ONCE IV 06/04/17 13:15 06/04/17 13:16 DC 06/04/17 13:[address] SCAN OF THE ABDOMEN AND PELVIS WITHOUT CONTRAST CLINICAL HISTORY: R10.9 Abdominal painB96.89 Clostridium difficile [id number] COMPARISON STUDY: 02/01/2017 TECHNIQUE: CT scan of the abdomen and pelvis was performed from the lung bases to the proximal femurs. Images are reviewed in the axial, sagittal, and coronal planes. IV contrast was not administered for this examination. A dose lowering technique was utilized adhering to the principles of ALARA. CT DOSE: 371.98 mGy.cm FINDINGS: Lower chest: The heart is normal in size and configuration, without pericardial effusion. The lung bases and pleural spaces are clear. Liver: There is hepatic steatosis. There is pneumobilia. No focal hepatic masses are visualized. Gallbladder: Surgically absent Spleen: Normal in size and attenuation. Pancreas: Unremarkable. Adrenal glands: Unremarkable. Kidneys: The unenhanced kidneys are normal in size without hydronephrosis. There is no contour deforming renal mass lesion. No renal calculi are identified. Bowel: There are no transition zones to indicate bowel obstruction. There is some mucosal fat hypertrophy within the ascending colon. This finding has been reported chronic inflammatory bowel disease. There is no evidence of acute appendicitis. There is no evidence of acute diverticulitis. Scattered colonic diverticula are visualized. Peritoneum: There is no intraperitoneal free air or abdominal ascites. There is a small fat-containing inguinal hernia Vasculature: The abdominal aorta is normal in course and caliber. Adenopathy: None. Pelvic viscera: The uterus is surgically absent Skeletal structures: No destructive osseous lesions are seen. IMPRESSION: 1. No evidence of bowel obstruction. No evidence of free air 2. Diverticulosis. No evidence of acute diverticulitis 3. Normal appendix 4. Colonic submucosal fat hypertrophy 5. Hepatic steatosis. Surgically absent gallbladder. Pneumobilia. [~ rep ct add3]] R ANKLE 2 VIEWS CLINICAL HISTORY: Right ankle pain. Heel pain. COMPARISON: None FINDINGS: Alignment of the right ankle is anatomic. There is no acute fracture. Talar dome is intact. There is cortical irregularity of the posterior inferior calcaneus, a nonspecific finding which is likely chronic. IMPRESSION: 1. No acute fracture or dislocation of the right ankle. 2. Cortical irregularity of the posterior inferior calcaneus. This finding is nonspecific but not acute. Medical Decision 56 yo F with history of recurrent C DIff colitis x several months s/p 2 courses of flagyl, s/p 2 courses of vancomycin PO including 6 week course po vancomycin initiated by Gastroenterology 04/14 presenting with abdominal pain , n/v, diarrhea, repeat C diff positive, CT abdomen with submucosal fat hypertrophy and Diverticulosis without acute diverticulitis. She arrives afebrile with abdominal distension, generalized abdominal tenderness, no leukocytosis Given IV NS, Zofran 4 mg IV, 50 mcg IV Fentanyl,then 100mcg IV Fentanyl mcg IV Given PO Vancomycin 125 mg Given multiple recurrences of C diff, failure of outpatient therapy with 6 wk course of Vancomycin, and new positive C Diff stool test, symptoms likely attributed to C diff . I discussed case with , the grants and contracts assistant [employer]. She suggested addition of Flagyl on admission. Upon reevaluation, the patient's abdominal pain, is somewhat improved. I discussed the findings and the treatment plan with the patient. She expressed agreement and understanding. I spoke with Dr. Damico of the [facility] Hospitalist Service and informed him of GI recommendation. She will be evaluated for further management. Head Trauma GCS Score: 15 Impression Primary Impression: C. difficile colitis Departure Information Dispostion Admitted as an inpatient Referrals Jose David Duke PA-C (PCP) Patient Instructions My [facility] Resident Tracking Resident Involvement: Resident Care Provided Care Provided: Adult ED
[2017-06-04] MEDS ORDERED: ALBUTEROL HFA 8 GM INHALER INH PRN (14:30)
--- NOTE | 2017-06-04 14:37 | History and Physical ---
History & Physical Date & Time of Service: Jun 04, 2017 at 14:11 Chief Complaint: C Diff,Right Heel Pain Primary Care Physician: Jose David Duke PA-C History of Present Illness Source: patient, clinic records, hospital records This is a 56 y/o female with a history of anxiety/depression, COPD, HTN, lung cancer s/p lobectomy, migraines, and chronic pain who presented to the ED on 06/04 with abdominal pain and diarrhea. She tested positive for C. diff as an outpatient 1 day prior to arrival. The patient has had 4 recent episodes of C. diff. She was initially treated with Flagyl, then vancomycin. Last week, she completed a 6 week vancomycin taper that was started by her pit clerk. She states she initially felt better, but started to feel worse again towards the end of the taper. Her abdominal pain has continued to get worse. She currently complains of a 9/10 crampy pain diffusely in her abdomen that is worse after meals. She states she couldn't sleep last night due to pain. She also complains of non-bloody diarrhea, going about 6 times per day. She complains of nausea and did have vomiting earlier in the week, but denies any vomiting in the last 3-4 days. The patient also notes that she tripped over a cord last night, and although she did not have pain at that time, she developed right ankle/heel pain this morning. The patient denies fevers, chills, sweats, chest pain, palpitations, claudication, cough, wheezing, shortness of breath, vomiting, dysuria, hematuria, urinary retention, paralysis, weakness, numbness and tingling. Past Medical/Surgical History Medical Problems: (1) Hx of cancer of lung Status: Resolved Anxiety/depression COPD HTN Migraines Chronic pain Surgical Problems: (1) History of cholecystectomy Status: Resolved Family History Cancer Heart disease Hypertension Stroke Social History Smoking Status: Current Every Day Smoker (1/2 ppd x 20 years) Smokeless Tobacco Use: No Alcohol Use: socially (6 pack of beer per week) Drug Use: none Marital Status: single Housing status: lives alone Occupational Status: unemployed Immunizations History of Influenza Vaccine: No History of Tetanus Vaccine?: No History of Pneumococcal: No History of Hepatitis B Vaccine: No Multi-Drug Resistant Organisms History of MDRO: No Allergies Coded Allergies: Morphine (Verified Allergy, Unknown, HIVES, 06/04/17) Home Medications Scheduled Gubfaktmwe-Zdnovwyxfhowx-Dmkad (Fioricet), 1 CAP PO UD Methadone Hcl (Dolophine), 40 MG PO QAM Nortriptyline (Pamelor), 25 MG PO HS Scheduled PRN Albuterol Hfa (Ventolin Hfa), 2-4 PUFFS INH Q6H PRN for SOB/Wheezing Review of Systems Constitutional: No fever, No chills, No sweats Eyes: No worsening of vision, No eye pain, No diplopia ENT: No hearing loss, No nasal symptoms, No trouble swallowing Respiratory: No cough, No wheezing, No shortness of breath Cardiovascular: No chest pain, No claudication, No palpitations Abdomen: +Nausea, diarrhea, abdominal pain. Vomiting resolved. Musculoskeletal: +Right ankle/heel pain. No muscle pain, No swelling Genitourinary - Female: No dysuria, No urinary retention, No hematuria Neurologic: No paralysis, No weakness, No numbness/tingling Integumentary: No rash, No itch, No color change Physical Exam Vital Signs Date Time Temp Pulse Resp B/P (MAP) Pulse Ox O2 Delivery O2 Flow Rate FiO2 06/04/17 11:47 85 16 132/78 98 Room Air 06/04/17 09:02 36.7 96 18 160/83 97 Room Air General appearance: Well-developed, well-nourished, no apparent distress Head: Normocephalic, atraumatic Eyes: Normal inspection, PERRL, EOMI ENT: Normal ENT inspection, hearing grossly normal, pharynx normal Neck: Supple, no JVD, trachea midline Respiratory/Chest: Lungs clear to auscultation, normal breath sounds, no respiratory distress Cardiovascular: Regular rate & rhythm, no gallop, no murmur Abdomen/GI: +Diffusely TTP, guarding. Normal bowel sounds, soft Extremities/Musculoskeletal: +Right lateral malleolus TTP. Bottom of right heel TTP. Normal inspection, no calf tenderness, no pedal edema Neurological/Psych: Alert, normal mood/affect, oriented x 3 Skin: Normal color, warm/dry, no rash Diagnostics Laboratory Results Results Past 24 Hours Test 06/04/17 11:32 06/04/17 13:00 06/04/17 13:56 Range/Units White Blood Count 8.18 4.8-10.8 K/uL Red Blood Count 4.06 4.2-5.4 M/uL Hemoglobin 13.1 12.0-16.0 g/dL Hematocrit 38.1 37-47 % Mean Corpuscular Volume 93.8 80-100 fL Mean Corpuscular Hemoglobin 32.3 25-34 pg Mean Corpuscular Hemoglobin Concent 34.4 32-36 g/dl Platelet Count 181 130-400 K/uL Mean Platelet Volume 9.3 7.4-10.4 fL Neutrophils (%) (Auto) 62.7 % Lymphocytes (%) (Auto) 29.5 % Monocytes (%) (Auto) 6.4 % Eosinophils (%) (Auto) 0.6 % Basophils (%) (Auto) 0.6 % Neutrophils # (Auto) 5.13 1.4-6.5 K/uL Lymphocytes # (Auto) 2.41 1.2-3.4 K/uL Monocytes # (Auto) 0.52 0.11-0.59 K/uL Eosinophils # (Auto) 0.05 0-0.5 K/uL Basophils # (Auto) 0.05 0-0.2 K/uL RDW Standard Deviation 44.2 36.4-46.3 fL RDW Coefficient of Variation 13.0 11.5-14.5 % Immature Granulocyte % (Auto) 0.2 % Immature Granulocyte # (Auto) 0.02 0.00-0.02 K/uL Sodium Level 135 136-145 mmol/L Potassium Level 3.5 3.5-5.1 mmol/L Chloride Level 103 98-107 mmol/L Carbon Dioxide Level 24 21-32 mmol/L Anion Gap 7.0 3-11 mmol/L Blood Urea Nitrogen 6 7-18 mg/dl Creatinine 0.50 0.60-1.20 mg/dl Est Creatinine Clear Calc Drug Dose 93.3 ml/min Estimated GFR () 125.4 Estimated GFR (Non- 108.2 BUN/Creatinine Ratio 11.4 10-20 Random Glucose 68 70-99 mg/dl Calcium Level 8.8 8.5-10.1 mg/dl Total Bilirubin 0.6 0.2-1 mg/dl Aspartate Amino Transf (AST/SGOT) 15-37 U/L Alanine Aminotransferase (ALT/SGPT) 40 12-78 U/L Alkaline Phosphatase 124 45-117 U/L Total Protein 7.0 6.4-8.2 gm/dl Albumin 3.5 3.4-5.0 gm/dl Globulin 3.5 2.5-4.0 gm/dl Albumin/Globulin Ratio 1.0 0.9-2 Lipase 95 73-393 U/L Diagnostic Radiology Reviewed the following studies and agree with interpretation as follows: CT abdomen/pelvis obtained 06/03: CT SCAN OF THE ABDOMEN AND PELVIS WITHOUT CONTRAST CLINICAL HISTORY: R10.9 Abdominal painB96.89 Clostridium difficile [id number] COMPARISON STUDY: 02/01/2017 TECHNIQUE: CT scan of the abdomen and pelvis was performed from the lung bases to the proximal femurs. Images are reviewed in the axial, sagittal, and coronal planes. IV contrast was not administered for this examination. A dose lowering technique was utilized adhering to the principles of ALARA. CT DOSE: 371.98 mGy.cm FINDINGS: Lower chest: The heart is normal in size and configuration, without pericardial effusion. The lung bases and pleural spaces are clear. Liver: There is hepatic steatosis. There is pneumobilia. No focal hepatic masses are visualized. Gallbladder: Surgically absent Spleen: Normal in size and attenuation. Pancreas: Unremarkable. Adrenal glands: Unremarkable. Kidneys: The unenhanced kidneys are normal in size without hydronephrosis. There is no contour deforming renal mass lesion. No renal calculi are identified. Bowel: There are no transition zones to indicate bowel obstruction. There is some mucosal fat hypertrophy within the ascending colon. This finding has been reported chronic inflammatory bowel disease. There is no evidence of acute appendicitis. There is no evidence of acute diverticulitis. Scattered colonic diverticula are visualized. Peritoneum: There is no intraperitoneal free air or abdominal ascites. There is a small fat-containing inguinal hernia Vasculature: The abdominal aorta is normal in course and caliber. Adenopathy: None. Pelvic viscera: The uterus is surgically absent Skeletal structures: No destructive osseous lesions are seen. IMPRESSION: 1. No evidence of bowel obstruction. No evidence of free air 2. Diverticulosis. No evidence of acute diverticulitis 3. Normal appendix 4. Colonic submucosal fat hypertrophy 5. Hepatic steatosis. Surgically absent gallbladder. Pneumobilia R ANKLE 2 VIEWS CLINICAL HISTORY: Right ankle pain. Heel pain. COMPARISON: None FINDINGS: Alignment of the right ankle is anatomic. There is no acute fracture. Talar dome is intact. There is cortical irregularity of the posterior inferior calcaneus, a nonspecific finding which is likely chronic. IMPRESSION: 1. No acute fracture or dislocation of the right ankle. 2. Cortical irregularity of the posterior inferior calcaneus. This finding is nonspecific but not acute. Impression Assessment and Plan 56 y/o female with a history of anxiety/depression, COPD, HTN, lung cancer s/p lobectomy, migraines, and chronic pain who presented to the ED on 06/04 with abdominal pain and diarrhea. C. diff testing positive. CT abdomen/pelvis from 06/03 shows no acute disease. Pt AVSS. Right ankle x-ray negative for fractures. Abdominal pain, diarrhea--unclear if acute C. diff or colonized -Admit to med/surg -Start Dificid 200 mg PO BID given multiple recent episodes -Consult infectious disease, appreciate recs -Consult gastroenterology, appreciate recs. Pt follows with Dr. Amado -Dilaudid 0.5 mg IV q4h prn pain, Toradol 30 mg IV q6h prn pain. Would avoid Dilaudid if possible given history of narcotic misuse -D5NSS + 20 KCl at 80 cc/hr -Check magnesium given diarrhea and earlier vomiting -Check stool culture Right ankle/heel pain -Tylenol prn COPD--stable, no acute exacerbation -Continue albuterol prn HTN--no meds at home H/o lung cancer s/p MARGARITA lobectomy--noted Migraines--stable -Continue nortriptyline 25 mg PO hs Anxiety/depression--history of selling Xanax per outpatient records, no longer on benzos -Nortriptyline as above Chronic pain -Continue methadone 40 mg PO qam. Managed by clinic in [place] per pt -Urine drug screen pending DVT prophylaxis -Enoxaparin 40 mg SC q24h -FRANCESCA lozada and ADINAs Code Status -Level III, FULL NO [facility] Physician Supervision Note: I interviewed and examined the patient. Discussed with Stephanie SERRANO and agree with findings and plan as documented in the note. Any exceptions or clarifications are listed here: None This patient presents due to diarrhea and abdominal bloating she recently has treated herself for C. difficile by a prolonged tapering course with medical supervision she is C. difficile toxin positive again here in the ER. She denies any other new complaints or problems. She has had difficulties in the past with substances and reportedly is taking methadone Vitals reviewed and are stable Exam shows normal active bowel sounds slightly protuberant abdomen comfortable in the lower quadrants to palpation but no rebound tenderness or focal guarding Diarrheal illness with history of recent C. difficile infection is unclear whether this C. difficile is a colonized or acute infection she has no white count she has no fever and no defined colitis seen on CT we will treat her with deficit with an infectious disease consultation for further recommendations and rule out secondary causes of diarrhea will use as mentioned cholestyramine help with the volume of her diarrhea Documented By: Javier Damico Level of Care Med/Surg Resuscitation Status FULL NO MECH VENTILATION VTE Prophylaxis VTE Risk Assessment Done? Y/N: Yes Risk Level: Moderate Given or contraindicated: Enoxaparin (Lovenox)SQ, T.E.D. Stockings, SCD's
[2017-06-04 15:30] VITALS: BP 169/94; PULSE 88; TEMP 36.8; O2SAT 100; Ht 149.9 cm; Wt 52.9 kg
[2017-06-04] MEDS: D5NSS + 20MEQ KCL 1,000 ML IV SCH (16:45)
[2017-06-04] MEDS: KETOROLAC TROMETHAMINE 30 MG/ML VIAL IV PRN (16:46)
[2017-06-04] MEDS ORDERED: PNEUMOCOCCAL POLYSACCHARIDES 25 MCG/0.5 ML VIAL/SYR IM. ONE (17:45)
[2017-06-04] MEDS ORDERED: PNEUMOCOCCAL ADMINISTRATION CHARGE ONE (17:45)
[2017-06-04] MEDS: ALUMINUM/MAGNESIUM/SIMETH (MAALOX MAX) 30 ML UDC PO PRN (19:42)
[2017-06-04] MEDS: HYDROmorphone INJ 0.5 MG/0.5 ML SYR IV PRN (19:58)
[2017-06-04] MEDS: NORTRIPTYLINE HCL 25 MG CAP PO SCH (19:59)
[2017-06-04] MEDS: FIDAXOMICIN TAB 200 MG TAB PO SCH (19:59)
[2017-06-04] MEDS: ENOXAPARIN 40 MG/0.4 ML SYR SQ SCH (20:00)
[2017-06-04] MEDS ORDERED: FIDAXOMICIN TAB 200 MG TAB PO SCH (20:00)
[2017-06-04 23:56] VITALS: BP 136/91; PULSE 71; TEMP 36.8; O2SAT 94
[2017-06-05] MEDS: HYDROmorphone INJ 0.5 MG/0.5 ML SYR IV PRN ×5 (01:20→22:13)
[2017-06-05] MEDS: D5NSS + 20MEQ KCL 1,000 ML IV SCH ×2 (05:48→16:43)
[2017-06-05 06:08] LABS: HEMATOCRIT 39.1 % (37-47); MEAN CELL VOLUME 96.3 fL (80-100); MEAN CORPUSCULAR HGB CONC 33.2 g/dl (32-36); MEAN PLATELET VOLUME 9.3 fL (7.4-10.4); PLATELET COUNT 189 K/uL (130-400); RED CELL DISTRIBUTION WIDTH SD 45.1 fL (36.4-46.3); WHITE BLOOD COUNT 6.18 K/uL (4.8-10.8)
[2017-06-05 06:38] LABS: CALCIUM 8.2 mg/dl (8.5-10.1); CREATININE 0.48 mg/dl (0.60-1.20); POTASSIUM 3.6 mmol/L (3.5-5.1)
[2017-06-05] MEDS: METHADONE HCL 10 MG TAB PO SCH (07:55)
[2017-06-05] MEDS: FIDAXOMICIN TAB 200 MG TAB PO SCH ×2 (07:55→20:15)
[2017-06-05 07:57] VITALS: BP 157/97; PULSE 74; TEMP 36.9; O2SAT 98
--- NOTE | 2017-06-05 10:01 | Gastrointestinal Consultation ---
Gastrointestinal Consultation Date of Consultation: Jun 05, 2017 Attending Physician: Dr. Damico Consulting Physician: Dr. Sheffield Reason for Consultation: Recurrent C diff History of Present Illness Patient is a 56 year old female with a history of lung cancer s/p lobectomy as well as COPD, migraine headaches,HTN and chronic pain ( on methadone)who presented to the ER last evening with complaints of abdominal pain and bloody diarrhea. She is a patient of and has been seen for recurrent C diff. She has apparently been treated 3 times for this over the last few months. She most recently completed a 6 week oral vancomycin taper and during the taper reports there was improvement in her symptoms. However after finishing it about a week ago she noted increasing generalized abdominal pain as well as 6-8 loose BM with blood daily. She contacted 's office and was offered an outpatient CT scan but declined. She was instructed to go to the ER if her symptoms worsened. She did do a Cdiff specimen which is again positive. CT did not show any evidence of megacolon. Labs normal aside from tox screen. No recent antibiotics other than treatment for C diff. Past Medical/Surgical History Medical Problems: (1) C. difficile colitis Status: Acute Past Medical History: as noted in HPI Past Surgical History: cholecystectomy Family History Cancer Heart disease Hypertension Stroke non-contributory Social History Smoking Status: Current Every Day Smoker Alcohol Use: none Drug Use: none Marital Status: single Housing Status: lives with family Occupation Status: unemployed Allergies Coded Allergies: Morphine (Verified Allergy, Unknown, HIVES, 06/04/17) Current Medications Home Meds and Scripts Medications Dose Route/Sig Max Daily Dose Days Date Category Dose Instructions Dolophine (Methadone HCl) 10 Mg Tab 40 Mg PO QAM 06/04/17 Reported Ventolin Hfa (Albuterol) 200 Puffs/55328 Mcg Aers 2-4 Puffs INH Q6H PRN 12/24/16 Reported Fioricet (Ieksbxghmb-Pnzcrvzxvbeia-Kisww) 1 Cap Cap 1 Cap PO UD 08/25/16 Reported TAKE 1 CAPSULE AT ON SET OF MIGRAINE. MAY REPEAT AFTER 4 HOURS. NO MORE THAN 2 CAPSULES PER DAY Pamelor (Nortriptyline HCl) 25 Mg Cap 25 Mg PO HS 08/25/16 Reported Review of Systems 12 systems reviewed and negative except as noted Physical Exam Date Time Temp Pulse Resp B/P (MAP) Pulse Ox O2 Delivery O2 Flow Rate FiO2 06/05/17 07:57 36.9 74 18 157/97 (117) 98 Room Air 06/05/17 00:00 Room Air 06/04/17 23:56 36.8 71 20 136/91 (106) 94 Room Air 06/04/17 20:00 Room Air 06/04/17 15:30 36.8 88 14 169/94 100 Room Air 06/04/17 14:45 72 16 134/72 98 Room Air 06/04/17 13:45 72 16 137/76 98 Room Air 06/04/17 11:47 85 16 132/78 98 Room Air General Appearance: WD/WN, no apparent distress Eyes: normal inspection, PERRL ENT: normal ENT inspection, pharynx normal Neck: supple, no adenopathy, no JVD Respiratory/Chest: chest non-tender, lungs clear, normal breath sounds Cardiovascular: regular rate, rhythm, no murmur Abdomen: normal bowel sounds, soft, + tenderness Extremities: normal range of motion, non-tender, normal inspection, no pedal edema Neurologic/Psych: assembler bonding II-XII nml as tested, no motor/sensory deficits, alert, normal mood/affect, oriented x 3 Skin: normal color, no jaundice, warm/dry, no rash Laboratory Results Last 24 Hours Test 06/04/17 11:32 06/04/17 13:00 06/04/17 16:10 06/04/17 16:45 White Blood Count 8.18 K/uL Red Blood Count 4.06 M/uL Hemoglobin 13.1 g/dL Hematocrit 38.1 % Mean Corpuscular Volume 93.8 fL Mean Corpuscular Hemoglobin 32.3 pg Mean Corpuscular Hemoglobin Concent 34.4 g/dl Platelet Count 181 K/uL Mean Platelet Volume 9.3 fL Neutrophils (%) (Auto) 62.7 % Lymphocytes (%) (Auto) 29.5 % Monocytes (%) (Auto) 6.4 % Eosinophils (%) (Auto) 0.6 % Basophils (%) (Auto) 0.6 % Neutrophils # (Auto) 5.13 K/uL Lymphocytes # (Auto) 2.41 K/uL Monocytes # (Auto) 0.52 K/uL Eosinophils # (Auto) 0.05 K/uL Basophils # (Auto) 0.05 K/uL RDW Standard Deviation 44.2 fL RDW Coefficient of Variation 13.0 % Immature Granulocyte % (Auto) 0.2 % Immature Granulocyte # (Auto) 0.02 K/uL Sodium Level 135 mmol/L Potassium Level mmol/L 3.5 mmol/L Chloride Level 103 mmol/L Carbon Dioxide Level 24 mmol/L Anion Gap 7.0 mmol/L Blood Urea Nitrogen 6 mg/dl Creatinine 0.50 mg/dl Est Creatinine Clear Calc Drug Dose 93.3 ml/min Estimated GFR () 125.4 Estimated GFR (Non- 108.2 BUN/Creatinine Ratio 11.4 Random Glucose 68 mg/dl Calcium Level 8.8 mg/dl Total Bilirubin 0.6 mg/dl Aspartate Amino Transf (AST/SGOT) U/L Alanine Aminotransferase (ALT/SGPT) 40 U/L Alkaline Phosphatase 124 U/L Total Protein 7.0 gm/dl Albumin 3.5 gm/dl Globulin 3.5 gm/dl Albumin/Globulin Ratio 1.0 Lipase 95 U/L Magnesium Level 1.9 mg/dl Prothrombin Time 10.0 SECONDS Prothromb Time International Ratio 1.0 Urine Opiates Screen NEG Urine Methadone, Qualitative POS Urine Barbiturates NEG Urine Phencyclidine (PCP) Level NEG Ur Amphetamine/Methamphetamine NEG MDMA (Ecstasy) Screen POS Urine Benzodiazepines Screen POS Urine Cocaine Metabolite NEG Urine Marijuana (THC) NEG Test 06/05/17 05:27 White Blood Count 6.18 K/uL Red Blood Count 4.06 M/uL Hemoglobin 13.0 g/dL Hematocrit 39.1 % Mean Corpuscular Volume 96.3 fL Mean Corpuscular Hemoglobin 32.0 pg Mean Corpuscular Hemoglobin Concent 33.2 g/dl RDW Standard Deviation 45.1 fL RDW Coefficient of Variation 13.0 % Platelet Count 189 K/uL Mean Platelet Volume 9.3 fL Sodium Level 139 mmol/L Potassium Level 3.6 mmol/L Chloride Level 107 mmol/L Carbon Dioxide Level 27 mmol/L Anion Gap 5.0 mmol/L Blood Urea Nitrogen 5 mg/dl Creatinine 0.48 mg/dl Est Creatinine Clear Calc Drug Dose 97.3 ml/min Estimated GFR () 127.1 Estimated GFR (Non- 109.7 BUN/Creatinine Ratio 10.5 Random Glucose 101 mg/dl Calcium Level 8.2 mg/dl Impression Patient is a 56 year old female on methadone for chronic pain, h/o lung cancer s /p resection, HTN with recurrent C diff colitis. Recent increase in symptoms after completing long vancomycin taper. C diff tested and was positive. It can be difficult to ascertain whether she has post-infectious IBS and is now colonized with C diff vs having an active C diff infection. Plan - Agree with IVF hydration. - Started on Dificid and OK to continue, though if symptoms persist may need to consider a fecal transplant. -ID was consulted and will await their thoughts. - Would limit meds that slow GI transit.
--- NOTE | 2017-06-05 14:45 | Progress Note ---
Subjective Date of Service: Jun 05, 2017. Subjective Pt evaluation today including: conversation w/ patient, physical exam, chart review, lab review, review of studies, conversation w/ mergers and acquisitions consultant, review of inpatient medication list Nerve anxious , reported right lateral foot pain with recent possible twisted, local has no swelling or erythema, has bowel movement time 1, and bowel movement 3 with diarrhea yesterday, no blood pressure is rectum, deny fever and chill Problem List Medical Problems: (1) C. difficile colitis Status: Acute Review of Systems Constitutional: + weakness, + fatigue, No fever, No chills, No sweats, No weight loss, No problem reported Eyes: No worsening of vision, No eye pain, No redness, No discharge, No diplopia ENT: No hearing loss, No unusual epistaxis, No nasal symptoms, No sore throat, No tinnitus, No dental problems, No trouble swallowing Respiratory: No cough, No sputum, No wheezing, No shortness of breath, No dyspnea on exertion, No dyspnea at rest, No hemoptysis Cardiac: No chest pain, No orthopnea, No PND, No edema, No claudication, No palpitations Abdomen: No pain, No nausea, No vomiting, No diarrhea, No constipation Musculoskeletal: + joint pain, No muscle pain, No swelling, No calf pain Female : No dysuria, No urinary frequency, No hematuria, No incontinence, No abnormal vaginal bleeding, No vaginal discharge Neurologic: No memory loss, No paralysis, No weakness, No numbness/tingling, No vertigo, No balance problems Psychiatric: No depression symptoms, No anhedonism, No anxiety, No insomnia, No substance abuse Heme: No abnormal bleeding/bruising, No clotting problems, No swollen lymph nodes, No night sweats Endo: No fatigue, No excessive thirst, No excessive urination Skin: No rash, No itch, No new/changing skin lesions, No color change, No bleeding Objective Vital Signs Date Time Temp Pulse Resp B/P (MAP) Pulse Ox O2 Delivery O2 Flow Rate FiO2 06/05/17 08:00 Room Air 06/05/17 07:57 36.9 74 18 157/97 (117) 98 Room Air 06/05/17 00:00 Room Air 06/04/17 23:56 36.8 71 20 136/91 (106) 94 Room Air 06/04/17 20:00 Room Air 06/04/17 15:30 36.8 88 14 169/94 100 Room Air 06/04/17 14:45 72 16 134/72 98 Room Air Physical Exam General Appearance: WD/WN, no apparent distress, + thin, + pertinent finding ( anxious) Eyes: normal inspection, PERRL, EOMI, sclerae normal ENT: normal ENT inspection, hearing grossly normal, pharynx normal Neck: supple, no adenopathy, thyroid normal, no JVD, no carotid bruits, trachea midline Respiratory/Chest: chest non-tender, lungs clear, normal breath sounds, no respiratory distress, no accessory muscle use Cardiovascular: regular rate, rhythm, no edema, no gallop, no JVD, no murmur Abdomen: normal bowel sounds, non tender, soft, no organomegaly, no pulsatile mass Extremities: normal range of motion, non-tender, normal inspection, no pedal edema, no calf tenderness, normal capillary refill, pelvis stable, + pertinent finding (right lateral foot has no any obvious swelling, red, skin scratch, or erythema it looks in normal shape) Neurologic/Psychiatric: hand alterations tailor II-XII nml as tested, no motor/sensory deficits, alert, normal mood/affect, oriented x 3 Skin: normal color, warm/dry, no rash Lymphatic: no adenopathy Laboratory Results Last 24 Hours Test 06/04/17 16:10 06/04/17 16:45 06/05/17 05:27 Prothrombin Time 10.0 SECONDS Prothromb Time International Ratio 1.0 Urine Opiates Screen NEG Urine Methadone, Qualitative POS Urine Barbiturates NEG Urine Phencyclidine (PCP) Level NEG Ur Amphetamine/Methamphetamine NEG MDMA (Ecstasy) Screen POS Urine Benzodiazepines Screen POS Urine Cocaine Metabolite NEG Urine Marijuana (THC) NEG White Blood Count 6.18 K/uL Red Blood Count 4.06 M/uL Hemoglobin 13.0 g/dL Hematocrit 39.1 % Mean Corpuscular Volume 96.3 fL Mean Corpuscular Hemoglobin 32.0 pg Mean Corpuscular Hemoglobin Concent 33.2 g/dl RDW Standard Deviation 45.1 fL RDW Coefficient of Variation 13.0 % Platelet Count 189 K/uL Mean Platelet Volume 9.3 fL Sodium Level 139 mmol/L Potassium Level 3.6 mmol/L Chloride Level 107 mmol/L Carbon Dioxide Level 27 mmol/L Anion Gap 5.0 mmol/L Blood Urea Nitrogen 5 mg/dl Creatinine 0.48 mg/dl Est Creatinine Clear Calc Drug Dose 97.3 ml/min Estimated GFR () 127.1 Estimated GFR (Non- 109.7 BUN/Creatinine Ratio 10.5 Random Glucose 101 mg/dl Calcium Level 8.2 mg/dl Assessment and Plan 56 y/o female with recent C. difficile associated with abdominal pain and diarrhea noted on 06/04/2017 because of diarrhea and C. diff testing positive. Recurrent C. difficile associated with abdominal pain and diarrhea CT abdomen/pelvis from 06/03 shows no acute disease. Right lateral foot and ankle pain x-ray negative for fractures in the emergency room, topical Voltaren cream, CT of the foot or orthopedic consult if needed Continue t Dificid 200 mg PO BID given multiple recent episodes, pending infectious disease input, GI was consulted Continue pain control with Dilaudid 0.5 mg IV q4h prn pain, Toradol 30 mg IV q6h prn pain. Would avoid Dilaudid if possible given history of narcotic misuse Continue D5NSS + 20 KCl at 80 cc/hr COPD--stable, no acute exacerbation HTN--no meds at home H/o lung cancer s/p MARGARITA lobectomy--noted Migraines--stable Anxiety/depression Chronic pain the above condition stable continue current care Continue methadone 40 mg PO qam. Managed by clinic in [place] per pt DVT prophylaxis, GI prophylaxis is covered, Level III, [facility]ULL NO [facility] Continued [facility] stay due to: multiple IV medications needed Discharge planning: home
[2017-06-05 16:41] VITALS: BP 153/83; PULSE 74; TEMP 36.8; O2SAT 98
[2017-06-05] MEDS: ALUMINUM/MAGNESIUM/SIMETH (MAALOX MAX) 30 ML UDC PO PRN (16:42)
[2017-06-05] MEDS: NORTRIPTYLINE HCL 25 MG CAP PO SCH (20:15)
[2017-06-05] MEDS: KETOROLAC TROMETHAMINE 30 MG/ML VIAL IV PRN (20:19)
[2017-06-05] MEDS: DICLOFENAC SOD 1% GEL 100 GM TUBE EXT SCH (20:20)
[2017-06-05] MEDS: ENOXAPARIN 40 MG/0.4 ML SYR SQ SCH (20:22)
--- NOTE | 2017-06-05 22:17 | Medical Consult ---
Consultation Date of Consultation: Jun 05, 2017. Attending Physician: Javier Damico M.D. Reason for Consultation: Recurrent C difficile infection History of Present Illness 56-year-old female with history of lung cancer status post lobectomy, who has been followed by GI recently for C difficile infection. Patient has had several episodes in the past, and most recently finished a prolonged tapering course of vancomycin. She improved while on antibiotic therapy, but as soon as vancomycin was discontinued, she developed worsening diarrhea with 6-8 bowel movements with blood daily. This was associated with worsening abdominal pain and low-grade fever. She was now readmitted to the hospital for further management and has been started empirically on Dificid. States she is only minimally better so far. Tolerating her antibiotic without apparent difficulty. Past Medical/Surgical History Medical Problems: (1) C. difficile colitis Status: Acute Medical Problems: (1) Abdominal pain (2) Diarrhea (3) Hx of cancer of lung Surgical Problems: (1) History of cholecystectomy Family History Cancer Heart disease Hypertension Stroke Social History Smoking Status: Current Every Day Smoker Smokeless Tobacco Use: No Alcohol Use: socially (6 pack of beer per week) Drug Use: none Marital Status: single Housing Status: lives with family Occupation Status: unemployed Allergies Coded Allergies: Morphine (Verified Allergy, Unknown, HIVES, 06/04/17) Current Inpatient Medications Current Inpatient Medications Medications (Trade) Dose Ordered Sig/Nash Route Start Time Stop Time Status Last Admin Dose Admin Enoxaparin Sodium (Lovenox Inj) 40 mg Q24H SQ 06/04/17 21:00 07/04/17 20:59 06/05/17 20:22 40 MG Acetaminophen (Tylenol Tab) 650 mg Q4H PRN PO 06/04/17 14:00 07/04/17 13:59 Al Hydrox/Mg Hydrox/Simethicone (Maalox Max Susp) 15 ml Q4H PRN PO 06/04/17 14:00 07/04/17 13:59 06/05/17 16:42 15 ML Magnesium Hydroxide (Milk Of Magnesia Susp) 30 ml Q6H PRN PO 06/04/17 14:00 07/04/17 13:59 Polyethylene (Miralax Powder Packet) 17 gm DAILY PRN PO 06/04/17 14:00 07/04/17 13:59 Ondansetron HCl (Zofran Inj) 4 mg Q6H PRN IV 06/04/17 14:00 07/04/17 13:59 Hydromorphone HCl (Dilaudid Inj) 0.5 mg Q4H PRN IV 06/04/17 14:00 06/18/17 13:59 06/05/17 18:08 0.5 MG Ketorolac Tromethamine (Toradol Inj) 30 mg Q6H PRN IV 06/04/17 14:00 06/09/17 13:59 06/05/17 20:19 30 MG Potassium Chloride/Dextrose/ Sod Cl 1,000 ml @ 80 mls/hr [id number] IV 06/04/17 16:00 07/04/17 13:59 06/05/17 16:43 80 MLS/HR Albuterol (Ventolin Hfa Inhaler) 2 puffs Q6H PRN INH 06/04/17 14:30 07/04/17 14:29 Methadone HCl (Dolophine Tab) 40 mg QAM PO 06/05/17 08:00 06/19/17 08:59 06/05/17 07:55 40 MG Nortriptyline HCl (Pamelor Cap) 25 mg HS PO 06/04/17 21:00 07/04/17 20:59 06/05/17 20:15 25 MG Fidaxomicin (Dificid Tab) 200 mg BID PO 06/04/17 20:00 06/18/17 19:59 06/05/17 20:15 200 MG Diclofenac Sodium (Voltaren 1% Top Gel) 1 appln Q12 EXT 06/05/17 21:00 07/05/17 20:59 06/05/17 20:20 1 APPLN Review of Systems All systems were reviewed and are negative except as per HPI Physical Exam Date Time Temp Pulse Resp B/P (MAP) Pulse Ox O2 Delivery O2 Flow Rate FiO2 06/05/17 20:00 Room Air 06/05/17 16:41 36.8 74 16 153/83 (106) 98 Room Air 06/05/17 16:00 Room Air 06/05/17 08:00 Room Air 06/05/17 07:57 36.9 74 18 157/97 (117) 98 Room Air 06/05/17 00:00 Room Air 06/04/17 23:56 36.8 71 20 136/91 (341) 94 Room Air General Appearance: WD/WN, no apparent distress Head: normocephalic, atraumatic Eyes: normal inspection, EOMI, sclerae normal ENT: normal ENT inspection, hearing grossly normal, pharynx normal Neck: supple, no adenopathy, thyroid normal, trachea midline Respiratory/Chest: chest non-tender, lungs clear, normal breath sounds, no respiratory distress Cardiovascular: regular rate, rhythm, no gallop, no murmur Abdomen/GI: normal bowel sounds, soft, no organomegaly, + tenderness Back: normal inspection, no CVA tenderness Extremities/Musculoskelatal: no calf tenderness, normal capillary refill, non- tender Neurologic/Psych: alert, oriented x 3 Skin: normal color, warm/dry, no rash Lymphatic: no adenopathy Laboratory Results RUN DATE: 06/05/17 [facility] LAB PAGE 1 RUN TIME: 1223 Specimen Inquiry PATIENT: MARCO AUSTIN LOC: [place] U # : [id number] AGE/SX: 56/F ROOM: E4 REG : 06/04/[address]: Javier Damico M : 1960 BED: 1 DIS : STATUS: ADM IN TLOC: SPEC #: [id number] CONG: 06/04/17 STATUS: RES REQ #: [id number] RECD: 06/04/17 [facility] DR: Stephanie Durán PA-C SOURCE: STOOL ENTR: 06/04/[address] [facility] [address]: Hammad Prado MD [facility] Kurtis Amado D.O. Covaleski, Thomas E., M.D. McCliment, James D PA-C Suvock, Emily T., DO ORDERED: STOOL CULTURE COMMENTS: Has Specimen Been Obtained/Collected? Y Procedure Result Verified Site STOOL SHIGATOXIN Preliminary 06/05/17 No E. Coli shiga toxin 1 or shiga toxin 2 detected. STOOL CULTURE [id number] Preliminary 06/05/17 NO SALMONELLA ISOLATED TO DATE, NO SHIGELLA ISOLATED TO DATE, NO CAMPYLOBACTER JEJUNI ISOLATED TO DATE, Last 24 Hours Test 06/05/17 05:27 White Blood Count 6.18 K/uL Red Blood Count 4.06 M/uL Hemoglobin 13.0 g/dL Hematocrit 39.1 % Mean Corpuscular Volume 96.3 fL Mean Corpuscular Hemoglobin 32.0 pg Mean Corpuscular Hemoglobin Concent 33.2 g/dl RDW Standard Deviation 45.1 fL RDW Coefficient of Variation 13.0 % Platelet Count 189 K/uL Mean Platelet Volume 9.3 fL Sodium Level 139 mmol/L Potassium Level 3.6 mmol/L Chloride Level 107 mmol/L Carbon Dioxide Level 27 mmol/L Anion Gap 5.0 mmol/L Blood Urea Nitrogen 5 mg/dl Creatinine 0.48 mg/dl Est Creatinine Clear Calc Drug Dose 97.3 ml/min Estimated GFR () 127.1 Estimated GFR (Non- 109.7 BUN/Creatinine Ratio 10.5 Random Glucose 101 mg/dl Calcium Level 8.2 mg/dl Patient Name: MARCO AUSTIN Unit Number: [id number] Dictated: 06/04/171336 Transcribed: 06/04/171336 SHEY Printed Date/Time: [~ rep prt dt]/[~ rep prt tm] [~ rep ct labl] - [~ rep ct ivnm] [facility] [place] [address] Dictated: 06/04/171336 Transcribed: 06/04/171336 SHEY Printed Date/Time: [~ rep prt dt]/[~ rep prt tm] [~ rep ct labl] - [~ rep ct ivnm] CLINICAL HISTORY: Right ankle pain. Heel pain. COMPARISON: None FINDINGS: Alignment of the right ankle is anatomic. There is no acute fracture. Talar dome is intact. There is cortical irregularity of the posterior inferior calcaneus, a nonspecific finding which is likely chronic. IMPRESSION: 1. No acute fracture or dislocation of the right ankle. 2. Cortical irregularity of the posterior inferior calcaneus. This finding is nonspecific but not acute. Electronically signed by: Jamie Guajardo M.D. 06/04/2017 1:39 PM Dictated Date/Time: 06/04/2017 1:37 PM The status of this report is Signed. Draft = Not yet reviewed or approved by Radiologist. Signed = Reviewed and approved by Radiologist. <AttendingPhy></AttendingPhy> <FamilyPhy>Jose David Duke PA-C</FamilyPhy> < PrimaryPhy>Jose David Duke PA-C</PrimaryPhy> <UnitNumber>[id number]</ UnitNumber> <VisitNumber>[id number]</VisitNumber> <PatientName>MARCO AUSTIN</ PatientName> <DateOfBirth>1960</DateOfBirth> <Location>C.[facility]C</Location> < ServiceDate>06/04/17</ServiceDate> <MNE>ESINDI</MNE> <OrderingPhy>Angelo Lugo MD</OrderingPhy> <OrderingPhyMNE>f rep ord dr fernandez</OrderingPhyMNE> < DictatingPhyMNE>f rep dict dr fernandez</DictatingPhyMNE> <CCListMNE>f rep ct mne</ CCListMNE> <AdmittingPhyMNE>f pt admit dr fernandez</AdmittingPhyMNE> <AttendingPhyMNE >f pt attend dr fernandez</AttendingPhyMNE> <ConsultingPhyMNE>f pt consult dr fernandez</ConsultingPhyMNE> <FamilyPhyMNE>f pt fam dr fernandez</FamilyPhyMNE> <OtherPhyMNE>f pt other dr fernandez</OtherPhyMNE> < PrimaryPhyMNE>f pt prim care dr fernandez</PrimaryPhyMNE> <ReferringPhyMNE>f pt referring dr fernandez</ReferringPhyMNE> Assessment & Plan Patient with recurrent C difficile colitis, with rapid recurrence after discontinuation of vancomycin. Patient to be treated with 10 day course of Dificid, but with then continue patient on vancomycin indefinitely unless fecal transplant can be performed. Will discuss further with all involved.
[2017-06-05 23:00] VITALS: BP 129/84; PULSE 69; TEMP 36.8; O2SAT 96
[2017-06-06] VITALS (7 sets, daily range): BP systolic 127–170; BP diastolic 84–108; PULSE 63–78; TEMP 36.7–37.1; O2SAT 95–100
[2017-06-06] MEDS: HYDROmorphone INJ 0.5 MG/0.5 ML SYR IV PRN ×3 (04:36→14:10)
[2017-06-06] MEDS: D5NSS + 20MEQ KCL 1,000 ML IV SCH ×2 (04:38→16:44)
[2017-06-06 06:38] LABS: HEMATOCRIT 40.3 % (37-47); HEMOGLOBIN 13.3 g/dL (12.0-16.0); MEAN CELL VOLUME 97.3 fL (80-100); MEAN CORPUSCULAR HEMOGLOBIN 32.1 pg (25-34); MEAN PLATELET VOLUME 9.5 fL (7.4-10.4); PLATELET COUNT 184 K/uL (130-400); RED CELL DISTRIBUTION WIDTH CV 12.9 % (11.5-14.5); RED CELL DISTRIBUTION WIDTH SD 45.7 fL (36.4-46.3)
[2017-06-06 07:32] LABS: CALCIUM 8.8 mg/dl (8.5-10.1); CREATININE 0.55 mg/dl (0.60-1.20); POTASSIUM 4.2 mmol/L (3.5-5.1)
[2017-06-06] MEDS: METHADONE HCL 10 MG TAB PO SCH (07:57)
[2017-06-06] MEDS: FIDAXOMICIN TAB 200 MG TAB PO SCH ×2 (07:57→20:22)
[2017-06-06] MEDS: DICLOFENAC SOD 1% GEL 100 GM TUBE EXT SCH ×2 (07:59→20:21)
--- NOTE | 2017-06-06 09:13 | Gastroenterology Progress Note ---
Progress Note Date of Service: Jun 06, 2017 Subjective Pt evaluation today including: conversation w/ patient, physical exam, lab review, review of studies Patient is a 56 yo female who is hospitalized with C diff & abdominal pain. The patient is presently on Dificid therapy and is being followed by ID. She was seen over the weekend by Dr. Sheffield of [facility]. Najma reports that the frequency of her bowel movements is improving. She reports approximately 3 stools in the past 24 hours. She reports her stools are forming as well. She denies fever or chills. She denies rectal bleeding. CT on the day of admission did not indicate any evidence of megacolon. The patient's persistent complaint is severe abdominal pain. She rates it as an 8/10. She reports she is fearful of going home because she "doesn't want to alone at home." She ate very little of her breakfast this morning. She offers no new complaints. Review of Systems Constitutional: No fever Eyes: No problem reported Respiratory: No cough Cardiac: No chest pain Abdomen: + pain, + diarrhea (improving), No nausea, No vomiting Musculoskeletal: No joint pain Neuro: No problem reported Psych: No problem reported Heme: No problem reported Skin: No problem reported Medications Current Inpatient Medications Medications (Trade) Dose Ordered Sig/Nash Route Start Time Stop Time Status Last Admin Dose Admin Enoxaparin Sodium (Lovenox Inj) 40 mg Q24H SQ 06/04/17 21:00 07/04/17 20:59 06/05/17 20:22 40 MG Acetaminophen (Tylenol Tab) 650 mg Q4H PRN PO 06/04/17 14:00 07/04/17 13:59 Al Hydrox/Mg Hydrox/Simethicone (Maalox Max Susp) 15 ml Q4H PRN PO 06/04/17 14:00 07/04/17 13:59 06/05/17 16:42 15 ML Magnesium Hydroxide (Milk Of Magnesia Susp) 30 ml Q6H PRN PO 06/04/17 14:00 07/04/17 13:59 Polyethylene (Miralax Powder Packet) 17 gm DAILY PRN PO 06/04/17 14:00 07/04/17 13:59 Ondansetron HCl (Zofran Inj) 4 mg Q6H PRN IV 06/04/17 14:00 07/04/17 13:59 Hydromorphone HCl (Dilaudid Inj) 0.5 mg Q4H PRN IV 06/04/17 14:00 06/18/17 13:59 06/06/17 04:36 0.5 MG Ketorolac Tromethamine (Toradol Inj) 30 mg Q6H PRN IV 06/04/17 14:00 06/09/17 13:59 06/05/17 20:19 30 MG Potassium Chloride/Dextrose/ Sod Cl 1,000 ml @ 80 mls/hr [id number] IV 06/04/17 16:00 07/04/17 13:59 06/06/17 04:38 80 MLS/HR Albuterol (Ventolin Hfa Inhaler) 2 puffs Q6H PRN INH 06/04/17 14:30 07/04/17 14:29 Methadone HCl (Dolophine Tab) 40 mg QAM PO 06/05/17 08:00 06/19/17 08:59 06/06/17 07:57 40 MG Nortriptyline HCl (Pamelor Cap) 25 mg HS PO 06/04/17 21:00 07/04/17 20:59 06/05/17 20:15 25 MG Fidaxomicin (Dificid Tab) 200 mg BID PO 06/04/17 20:00 06/18/17 19:59 06/06/17 07:57 200 MG Diclofenac Sodium (Voltaren 1% Top Gel) 1 appln Q12 EXT 06/05/17 21:00 07/05/17 20:59 06/06/17 07:59 1 APPLN Objective Vital Signs Date Time Temp Pulse Resp B/P (MAP) Pulse Ox O2 Delivery O2 Flow Rate FiO2 06/06/17 08:33 37.1 72 18 170/108 (128) 100 Room Air 167/100 (122) 06/06/17 08:00 78 169/98 (121) 06/06/17 00:00 Room Air 06/05/17 23:00 36.8 69 18 129/84 (99) 96 Room Air 06/05/17 20:00 Room Air 06/05/17 16:41 36.8 74 16 153/83 (106) 98 Room Air 06/05/17 16:00 Room Air Physical Exam General Appearance: WD/WN, no apparent distress Eyes: normal inspection, PERRL ENT: hearing grossly normal Respiratory/Chest: lungs clear, normal breath sounds Cardiovascular: regular rate, rhythm Abdomen: normal bowel sounds, non tender, soft Extremities: non-tender Neurologic/Psych: alert, oriented x 3 Skin: normal color Laboratory Results Last 24 Hours Test 06/06/17 05:43 White Blood Count 7.80 K/uL Red Blood Count 4.14 M/uL Hemoglobin 13.3 g/dL Hematocrit 40.3 % Mean Corpuscular Volume 97.3 fL Mean Corpuscular Hemoglobin 32.1 pg Mean Corpuscular Hemoglobin Concent 33.0 g/dl RDW Standard Deviation 45.7 fL RDW Coefficient of Variation 12.9 % Platelet Count 184 K/uL Mean Platelet Volume 9.5 fL Sodium Level 139 mmol/L Potassium Level 4.2 mmol/L Chloride Level 106 mmol/L Carbon Dioxide Level 28 mmol/L Anion Gap 5.0 mmol/L Blood Urea Nitrogen 4 mg/dl Creatinine 0.55 mg/dl Est Creatinine Clear Calc Drug Dose 84.9 ml/min Estimated GFR () 121.5 Estimated GFR (Non- 104.9 BUN/Creatinine Ratio 6.5 Random Glucose 103 mg/dl Calcium Level 8.8 mg/dl Assessment and Plan Patient is a 56 yo female with C diff and abdominal pain. She is presently being followed by infectious disease as well. Stools are beginning to form and decreasing in frequency. Patient reports worsening abdominal pain. 1) Continue Dificid 200 mg po BID x 10 days. Per ID, it appears they have suggested that after completion of Dificid, she either continue Vancomycin daily or have a fecal transplant. Patient reports she is not sure which of these options she would prefer. 2) Abdominal xray given worsening pain. 3) Supportive care per primary team. Thank you for allowing us to participate in the care of this patient. If you should have any further questions or concerns, do not hesitate to contact us. Agree with MAGGIE Gates as above Abd: Soft, tender throughout, ND, +BS Continue Dificid 200mg by mouth BID for 10 days. X-ray is normal Continue supportive care
[2017-06-06] MEDS ORDERED: LISINOPRIL 10 MG TAB PO ONE (09:45)
[2017-06-06] MEDS ORDERED: HydrALAZINE HCL 20 MG/ML VIAL IV. PRN (09:45)
--- NOTE | 2017-06-06 09:55 | DIAGNOSTIC IMAGING REPORT ---
ABDOMEN 2VIEW W/PA CHEST RTN CLINICAL HISTORY: abdominal pain pain. Nausea. COMPARISON STUDY: 12/21/2016 FINDINGS: Mild stable emphysematous change bilaterally. Several small calcified mediastinal and/or hilar nodes unchanged. Diaphragms smooth. Nonobstructive bowel pattern. Cholecystectomy. IMPRESSION: No acute process of the abdomen or pelvis. Mild emphysematous change. The above report was generated using voice recognition software. It may contain grammatical, syntax or spelling errors. Electronically signed by: Bobby Osullivan M.D. 06/06/2017 9:54 AM Dictated Date/Time: 06/06/2017 9:53 AM
[2017-06-06] MEDS ORDERED: NURSING VERBAL MED ORDER ONE (11:00)
[2017-06-06] MEDS ORDERED: BuPROPion XL 150 MG TABCR PO ONE (11:15)
--- NOTE | 2017-06-06 14:20 | Hospitalist Progress Note ---
Hospitalist Progress Note Date of Service Jun 06, 2017. Subjective Pt evaluation today including: conversation w/ patient, physical exam, chart review, lab review, review of studies, review of inpatient medication list Pain: 7/10 diffuse cramping abdominal pain PO Intake: Tolerating PO diet, decreased intake Voiding: no voiding problems The patient complains of increased bloating today. Her pain is about the same, a 7/10 cramping diffuse abdominal pain. She still complains of nausea but denies any vomiting. She states she is tolerating her diet but she is not eating very much. The patient denies fevers, chills, sweats, chest pain, palpitations, claudication, cough, wheezing, shortness of breath, vomiting, dysuria, hematuria, urinary retention, paralysis, weakness, numbness and tingling. Additional Comments: See HPI for pertinent positives and negatives. All other systems reviewed and negative. Objective Vital Signs Date Time Temp Pulse Resp B/P (MAP) Pulse Ox O2 Delivery O2 Flow Rate FiO2 06/06/17 12:11 136/87 (103) 06/06/17 10:19 74 163/87 (112) 06/06/17 08:33 37.1 72 18 170/108 (128) 100 Room Air 167/100 (122) 06/06/17 08:30 Room Air 06/06/17 08:00 78 169/98 (121) 06/06/17 00:00 Room Air 06/05/17 23:00 36.8 69 18 129/84 (99) 96 Room Air 06/05/17 20:00 Room Air 06/05/17 16:41 36.8 74 16 153/83 (106) 98 Room Air 06/05/17 16:00 Room Air Physical Exam Notes: General appearance: Well-developed, well-nourished, no apparent distress Head: Normocephalic, atraumatic Eyes: Normal inspection, PERRL, EOMI ENT: Normal ENT inspection, hearing grossly normal, pharynx normal Neck: Supple, no JVD, trachea midline Respiratory/Chest: Lungs clear to auscultation, normal breath sounds, no respiratory distress Cardiovascular: Regular rate & rhythm, no gallop, no murmur Abdomen/GI: +Diffusely TTP, most marked in suprapubic area. Normal bowel sounds, soft Extremities/Musculoskeletal: Normal inspection, no calf tenderness, no pedal edema Neurological/Psych: Alert, normal mood/affect, oriented x 3 Skin: Normal color, warm/dry, no rash Laboratory Results Last 24 Hours Test 06/06/17 05:43 White Blood Count 7.80 K/uL Red Blood Count 4.14 M/uL Hemoglobin 13.3 g/dL Hematocrit 40.3 % Mean Corpuscular Volume 97.3 fL Mean Corpuscular Hemoglobin 32.1 pg Mean Corpuscular Hemoglobin Concent 33.0 g/dl RDW Standard Deviation 45.7 fL RDW Coefficient of Variation 12.9 % Platelet Count 184 K/uL Mean Platelet Volume 9.5 fL Sodium Level 139 mmol/L Potassium Level 4.2 mmol/L Chloride Level 106 mmol/L Carbon Dioxide Level 28 mmol/L Anion Gap 5.0 mmol/L Blood Urea Nitrogen 4 mg/dl Creatinine 0.55 mg/dl Est Creatinine Clear Calc Drug Dose 84.9 ml/min Estimated GFR () 121.5 Estimated GFR (Non- 104.9 BUN/Creatinine Ratio 6.5 Random Glucose 103 mg/dl Calcium Level 8.8 mg/dl Diagnostic Results Reviewed the following studies and agree with interpretation as follows: ABDOMEN 2VIEW W/PA CHEST RTN CLINICAL HISTORY: abdominal pain pain. Nausea. COMPARISON STUDY: 12/21/2016 FINDINGS: Mild stable emphysematous change bilaterally. Several small calcified mediastinal and/or hilar nodes unchanged. Diaphragms smooth. Nonobstructive bowel pattern. Cholecystectomy. IMPRESSION: No acute process of the abdomen or pelvis. Mild emphysematous change. Assessment and Plan 56 y/o female with a history of anxiety/depression, COPD, HTN, lung cancer s/p lobectomy, migraines, and chronic pain who presented to the ED on 06/04 with abdominal pain and diarrhea. C. diff testing positive. CT abdomen/pelvis from 06/03 shows no acute disease. Pt AVSS. Right ankle x-ray negative for fractures. Abdominal pain, diarrhea--unclear if acute C. diff or colonized -Admit to med/surg -Continue Dificid 200 mg PO BID, day #3 of 10 -Consult infectious disease, appreciate recs: Continue Dificid x 10 days, then would continue vancomycin indefinitely if not able to have fecal transplant. -Consult gastroenterology, appreciate recs: Order abdominal x-ray due to increased pain. -Chest/abdomen x-ray no acute disease -Dilaudid 0.5 mg IV q4h prn pain, Toradol 30 mg IV q6h prn pain. Would avoid Dilaudid if possible given history of narcotic misuse -D5NSS + 20 KCl at 80 cc/hr -Stool culture negative Right ankle/heel pain--resolving -Tylenol prn COPD--stable, no acute exacerbation -Continue albuterol prn HTN--no meds at home -Start lisinopril 10 mg PO qd -Cover with hydralazine 20 mg IV q8h prn SBP >180 H/o lung cancer s/p MARGARITA lobectomy--noted Migraines--stable -Continue nortriptyline 25 mg PO hs Anxiety/depression--history of selling Xanax per outpatient records, no longer on benzos -Nortriptyline as above -Wellbutrin 150 mg PO qd per outpatient pharmacy Chronic pain -Continue methadone 40 mg PO qam. Managed by clinic in [place] per pt -Urine drug screen positive for methadone, ecstasy and benzos. Pt apparently take Wellbutrin, could have false positive ecstasy -PCP will need to f/u regarding positive benzos. Outpt records has red flag to not prescribe these anymore, unclear source DVT prophylaxis -Enoxaparin 40 mg SC q24h -FRANCESCA Ceja Code Status -Level III, FULL NO [facility]
[2017-06-06] MEDS: KETOROLAC TROMETHAMINE 30 MG/ML VIAL IV PRN (18:11)
[2017-06-06] MEDS: NORTRIPTYLINE HCL 25 MG CAP PO SCH (20:22)
[2017-06-06] MEDS: ENOXAPARIN 40 MG/0.4 ML SYR SQ SCH (20:22)
--- NOTE | 2017-06-06 20:32 | Infectious Disease Progress Nt ---
Progress Note Date of Service Jun 06, 2017. Subjective Pt evaluation today including: conversation w/ patient, physical exam, chart review, lab review, review of studies, conversation w/ health and wellness sales consultant, review of inpatient medication list Patient continues to complain of abdominal pain and bloating. Slightly less number of bowel movements. No fever. Tolerating Dificid without apparent difficulty. All Other Systems: Reviewed and Negative Medications Current Inpatient Medications Medications (Trade) Dose Ordered Sig/Nash Route Start Time Stop Time Status Last Admin Dose Admin Enoxaparin Sodium (Lovenox Inj) 40 mg Q24H SQ 06/04/17 21:00 07/04/17 20:59 06/06/17 20:22 40 MG Acetaminophen (Tylenol Tab) 650 mg Q4H PRN PO 06/04/17 14:00 07/04/17 13:59 Al Hydrox/Mg Hydrox/Simethicone (Maalox Max Susp) 15 ml Q4H PRN PO 06/04/17 14:00 07/04/17 13:59 06/05/17 16:42 15 ML Magnesium Hydroxide (Milk Of Magnesia Susp) 30 ml Q6H PRN PO 06/04/17 14:00 07/04/17 13:59 Polyethylene (Miralax Powder Packet) 17 gm DAILY PRN PO 06/04/17 14:00 07/04/17 13:59 Ondansetron HCl (Zofran Inj) 4 mg Q6H PRN IV 06/04/17 14:00 07/04/17 13:59 Ketorolac Tromethamine (Toradol Inj) 30 mg Q6H PRN IV 06/04/17 14:00 06/09/17 13:59 06/06/17 18:11 30 MG Albuterol (Ventolin Hfa Inhaler) 2 puffs Q6H PRN INH 06/04/17 14:30 07/04/17 14:29 Methadone HCl (Dolophine Tab) 40 mg QAM PO 06/05/17 08:00 06/19/17 08:59 06/06/17 07:57 40 MG Nortriptyline HCl (Pamelor Cap) 25 mg HS PO 06/04/17 21:00 07/04/17 20:59 06/06/17 20:22 25 MG Fidaxomicin (Dificid Tab) 200 mg BID PO 06/04/17 20:00 06/18/17 19:59 06/06/17 20:22 200 MG Diclofenac Sodium (Voltaren 1% Top Gel) 1 appln Q12 EXT 06/05/17 21:00 07/05/17 20:59 06/06/17 07:59 1 APPLN Hydralazine HCl (HydrALAZINE INJ) 20 mg Q8 PRN IV. 06/06/17 09:45 07/06/17 09:44 Lisinopril (Zestril Tab) 10 mg QAM PO 06/07/17 08:00 07/07/17 07:59 Bupropion HCl (Wellbutrin-Xl Tab) 150 mg DAILY PO 06/07/17 08:00 07/07/17 07:59 Objective Vital Signs Date Time Temp Pulse Resp B/P (MAP) Pulse Ox O2 Delivery O2 Flow Rate FiO2 06/06/17 16:12 36.8 68 18 143/91 (108) 96 Room Air 06/06/17 16:00 Room Air 06/06/17 12:11 136/87 (103) 06/06/17 10:19 74 163/87 (112) 06/06/17 08:33 37.1 72 18 170/108 (128) 100 Room Air 167/100 (122) 06/06/17 08:30 Room Air 06/06/17 08:00 78 169/98 (121) 06/06/17 00:00 Room Air 06/05/17 23:00 36.8 69 18 129/84 (99) 96 Room Air Physical Exam General Appearance: WD/WN, no apparent distress Eyes: normal inspection, EOMI, sclerae normal ENT: normal ENT inspection, pharynx normal Neck: supple, no adenopathy, thyroid normal, trachea midline Respiratory/Chest: chest non-tender, lungs clear, normal breath sounds, no respiratory distress Cardiovascular: regular rate, rhythm, no gallop, no murmur Abdomen: normal bowel sounds, soft, no organomegaly, + distended, + tenderness Extremities: non-tender, no calf tenderness Neurologic/Psychiatric: alert, oriented x 3 Skin: normal color, warm/dry, no rash Lymphatic: no adenopathy Laboratory Results Last 24 Hours Test 06/06/17 05:43 06/06/17 15:07 White Blood Count 7.80 K/uL Red Blood Count 4.14 M/uL Hemoglobin 13.3 g/dL Hematocrit 40.3 % Mean Corpuscular Volume 97.3 fL Mean Corpuscular Hemoglobin 32.1 pg Mean Corpuscular Hemoglobin Concent 33.0 g/dl RDW Standard Deviation 45.7 fL RDW Coefficient of Variation 12.9 % Platelet Count 184 K/uL Mean Platelet Volume 9.5 fL Sodium Level 139 mmol/L Potassium Level 4.2 mmol/L Chloride Level 106 mmol/L Carbon Dioxide Level 28 mmol/L Anion Gap 5.0 mmol/L Blood Urea Nitrogen 4 mg/dl Creatinine 0.55 mg/dl Est Creatinine Clear Calc Drug Dose 84.9 ml/min Estimated GFR () 121.5 Estimated GFR (Non- 104.9 BUN/Creatinine Ratio 6.5 Random Glucose 103 mg/dl Calcium Level 8.8 mg/dl Urine Color YELLOW Urine Appearance CLEAR Urine pH 6.0 Urine Specific [place] 1.013 Urine Protein NEG Urine Glucose (UA) NEG Urine Ketones NEG Urine Occult Blood TRACE Urine Nitrite NEG Urine Bilirubin NEG Urine Urobilinogen NEG Urine Leukocyte Esterase NEG Urine WBC (Auto) 1-5 /hpf Urine RBC (Auto) 0-4 /hpf Urine Hyaline Casts (Auto) 0 /lpf Urine Epithelial Cells (Auto) >30 /lpf Urine Bacteria (Auto) 1+ Urine Pathogenic Casts /lpf Assessment and Plan Patient with recurrent C difficile colitis, with rapid recurrence after discontinuation of vancomycin. Patient to be treated with 10 day course of Dificid, but with then continue patient on vancomycin indefinitely unless fecal transplant can be performed. Will discuss further with all involved.
[2017-06-07] VITALS: O2SAT 96
[2017-06-07 05:52] LABS: HEMATOCRIT 40.2 % (37-47); HEMOGLOBIN 13.3 g/dL (12.0-16.0); MEAN CELL VOLUME 96.6 fL (80-100); MEAN CORPUSCULAR HGB CONC 33.1 g/dl (32-36); MEAN PLATELET VOLUME 9.4 fL (7.4-10.4); PLATELET COUNT 186 K/uL (130-400); RED CELL DISTRIBUTION WIDTH CV 12.8 % (11.5-14.5); RED CELL DISTRIBUTION WIDTH SD 44.6 fL (36.4-46.3)
[2017-06-07 06:33] LABS: CALCIUM 8.9 mg/dl (8.5-10.1); CREATININE 0.55 mg/dl (0.60-1.20); PHOSPHORUS 4.3 mg/dl (2.5-4.9); POTASSIUM 4.1 mmol/L (3.5-5.1)
[2017-06-07 07:31] VITALS: BP 151/85; PULSE 78; TEMP 36.5; O2SAT 98
[2017-06-07] MEDS: BuPROPion XL 150 MG TABCR PO SCH (07:35)
[2017-06-07] MEDS: METHADONE HCL 10 MG TAB PO SCH (07:35)
[2017-06-07] MEDS: FIDAXOMICIN TAB 200 MG TAB PO SCH ×2 (07:35→20:19)
[2017-06-07] MEDS: DICLOFENAC SOD 1% GEL 100 GM TUBE EXT SCH ×2 (07:36→20:22)
[2017-06-07] MEDS: LISINOPRIL 10 MG TAB PO SCH (07:36)
--- NOTE | 2017-06-07 09:40 | Gastroenterology Progress Note ---
Progress Note Date of Service: Jun 07, 2017 Subjective Pt evaluation today including: conversation w/ patient, physical exam, lab review, review of studies Patient is a 56 yo female who is hospitalized with abdominal pain & C diff. The patient reports her abdominal pain persists. She expresses frustration regarding her pain medication regimen. She reports loose stools, but decreasing frequency. Her abdominal pain is reportedly less than it was yesterday. She is anxious about going home. She denies further symptoms at present. An abdominal xray performed yesterday was unremarkable. Review of Systems Constitutional: No fever, No chills Eyes: No problem reported Respiratory: No cough, No shortness of breath Cardiac: No chest pain Abdomen: + pain, + diarrhea, No nausea, No vomiting, No constipation, No GI bleeding Musculoskeletal: No joint pain Neuro: No problem reported Psych: No problem reported Heme: No problem reported Endo: No problem reported Skin: No problem reported Medications Current Inpatient Medications Medications (Trade) Dose Ordered Sig/Nash Route Start Time Stop Time Status Last Admin Dose Admin Enoxaparin Sodium (Lovenox Inj) 40 mg Q24H SQ 06/04/17 21:00 07/04/17 20:59 06/06/17 20:22 40 MG Acetaminophen (Tylenol Tab) 650 mg Q4H PRN PO 06/04/17 14:00 07/04/17 13:59 Al Hydrox/Mg Hydrox/Simethicone (Maalox Max Susp) 15 ml Q4H PRN PO 06/04/17 14:00 07/04/17 13:59 06/05/17 16:42 15 ML Magnesium Hydroxide (Milk Of Magnesia Susp) 30 ml Q6H PRN PO 06/04/17 14:00 07/04/17 13:59 Polyethylene (Miralax Powder Packet) 17 gm DAILY PRN PO 06/04/17 14:00 07/04/17 13:59 Ondansetron HCl (Zofran Inj) 4 mg Q6H PRN IV 06/04/17 14:00 07/04/17 13:59 Ketorolac Tromethamine (Toradol Inj) 30 mg Q6H PRN IV 06/04/17 14:00 06/09/17 13:59 06/06/17 18:11 30 MG Albuterol (Ventolin Hfa Inhaler) 2 puffs Q6H PRN INH 06/04/17 14:30 07/04/17 14:29 Methadone HCl (Dolophine Tab) 40 mg QAM PO 06/05/17 08:00 06/19/17 08:59 06/07/17 07:35 40 MG Nortriptyline HCl (Pamelor Cap) 25 mg HS PO 06/04/17 21:00 07/04/17 20:59 06/06/17 20:22 25 MG Fidaxomicin (Dificid Tab) 200 mg BID PO 06/04/17 20:00 06/18/17 19:59 06/07/17 07:35 200 MG Diclofenac Sodium (Voltaren 1% Top Gel) 1 appln Q12 EXT 06/05/17 21:00 07/05/17 20:59 06/07/17 07:36 1 APPLN Hydralazine HCl (HydrALAZINE INJ) 20 mg Q8 PRN IV. 06/06/17 09:45 07/06/17 09:44 Lisinopril (Zestril Tab) 10 mg QAM PO 06/07/17 08:00 07/07/17 07:59 06/07/17 07:36 10 MG Bupropion HCl (Wellbutrin-Xl Tab) 150 mg DAILY PO 06/07/17 08:00 07/07/17 07:59 06/07/17 07:35 150 MG Objective Vital Signs Date Time Temp Pulse Resp B/P (MAP) Pulse Ox O2 Delivery O2 Flow Rate FiO2 06/07/17 08:00 Room Air 06/07/17 07:31 36.5 78 20 151/85 (107) 98 Room Air 06/07/17 00:00 96 Room Air 06/06/17 23:58 36.7 63 16 127/84 (98) 95 Room Air 06/06/17 20:00 96 Room Air 06/06/17 16:12 36.8 68 18 143/91 (108) 96 Room Air 06/06/17 16:00 Room Air 06/06/17 12:11 136/87 (103) 06/06/17 10:19 74 163/87 (112) Physical Exam General Appearance: WD/WN, no apparent distress Eyes: normal inspection, PERRL Respiratory/Chest: lungs clear, normal breath sounds Cardiovascular: regular rate, rhythm Abdomen: normal bowel sounds, non tender, soft Extremities: non-tender Neurologic/Psych: alert, oriented x 3 Skin: normal color Laboratory Results Last 24 Hours Test 06/06/17 15:07 06/07/17 05:30 Urine Color YELLOW Urine Appearance CLEAR Urine pH 6.0 Urine Specific [place] 1.013 Urine Protein NEG Urine Glucose (UA) NEG Urine Ketones NEG Urine Occult Blood TRACE Urine Nitrite NEG Urine Bilirubin NEG Urine Urobilinogen NEG Urine Leukocyte Esterase NEG Urine WBC (Auto) 1-5 /hpf Urine RBC (Auto) 0-4 /hpf Urine Hyaline Casts (Auto) 0 /lpf Urine Epithelial Cells (Auto) >30 /lpf Urine Bacteria (Auto) 1+ Urine Pathogenic Casts /lpf White Blood Count 7.90 K/uL Red Blood Count 4.16 M/uL Hemoglobin 13.3 g/dL Hematocrit 40.2 % Mean Corpuscular Volume 96.6 fL Mean Corpuscular Hemoglobin 32.0 pg Mean Corpuscular Hemoglobin Concent 33.1 g/dl RDW Standard Deviation 44.6 fL RDW Coefficient of Variation 12.8 % Platelet Count 186 K/uL Mean Platelet Volume 9.4 fL Sodium Level 138 mmol/L Potassium Level 4.1 mmol/L Chloride Level 105 mmol/L Carbon Dioxide Level 28 mmol/L Anion Gap 5.0 mmol/L Blood Urea Nitrogen 5 mg/dl Creatinine 0.55 mg/dl Est Creatinine Clear Calc Drug Dose 84.9 ml/min Estimated GFR () 121.5 Estimated GFR (Non- 104.9 BUN/Creatinine Ratio 9.2 Random Glucose 100 mg/dl Calcium Level 8.9 mg/dl Phosphorus Level 4.3 mg/dl Magnesium Level 2.3 mg/dl Assessment and Plan Patient is a 56 yo female with C diff and abdominal pain. Stools are beginning to form and decreasing in frequency. ID is following as well. 1) Continue Dificid 200 mg po BID x 10 days. Patient would like to be referred for fecal transplant as an outpatient rather than take Vancomycin indefinitely as previously discussed with ID. 2) Supportive care per primary team. Avoid narcotic pain medication as this will decrease motility. Thank you for allowing us to participate in the care of this patient. If you should have any further questions or concerns, do not hesitate to contact us. Agree with Ann Whitney, PAC as above Abd: Soft, NT, slightly distended, +BS Doing much better today per patient Will sign off at this time Continue Dificid x 10 days.
[2017-06-07] MEDS: KETOROLAC TROMETHAMINE 30 MG/ML VIAL IV PRN ×3 (11:02→23:54)
--- NOTE | 2017-06-07 13:57 | Hospitalist Progress Note ---
Hospitalist Progress Note Date of Service Jun 07, 2017. (Virginie Quintanilla ., DEDRICK) Subjective Pt evaluation today including: conversation w/ patient, physical exam, lab review, review of studies, review of inpatient medication list Voiding: no voiding problems Patient resting in bed. Starting to eat/drink more. Diarrhea is improving. Abdominal pain continue to improve- comes in waves. Patient denies any fever, chills, sweats, lightheadedness, dizziness, vision changes, CP, palpitations, edema, SOB, wheezing, cough, nausea, vomiting, urinary symptoms, melena, numbness/tingling, weakness, muscle/joint pain, anxiety/depression, active bleeding, or new skin discoloration/changes. (Virginie Quintanilla ., CHRISC) Medications Current Inpatient Medications Medications (Trade) Dose Ordered Sig/Nash Route Start Time Stop Time Status Last Admin Dose Admin Enoxaparin Sodium (Lovenox Inj) 40 mg Q24H SQ 06/04/17 21:00 07/04/17 20:59 06/06/17 20:22 40 MG Acetaminophen (Tylenol Tab) 650 mg Q4H PRN PO 06/04/17 14:00 07/04/17 13:59 Al Hydrox/Mg Hydrox/Simethicone (Maalox Max Susp) 15 ml Q4H PRN PO 06/04/17 14:00 07/04/17 13:59 06/05/17 16:42 15 ML Magnesium Hydroxide (Milk Of Magnesia Susp) 30 ml Q6H PRN PO 06/04/17 14:00 07/04/17 13:59 Polyethylene (Miralax Powder Packet) 17 gm DAILY PRN PO 06/04/17 14:00 07/04/17 13:59 Ondansetron HCl (Zofran Inj) 4 mg Q6H PRN IV 06/04/17 14:00 07/04/17 13:59 Ketorolac Tromethamine (Toradol Inj) 30 mg Q6H PRN IV 06/04/17 14:00 06/09/17 13:59 06/07/17 11:02 30 MG Albuterol (Ventolin Hfa Inhaler) 2 puffs Q6H PRN INH 06/04/17 14:30 07/04/17 14:29 Methadone HCl (Dolophine Tab) 40 mg QAM PO 06/05/17 08:00 06/19/17 08:59 06/07/17 07:35 40 MG Nortriptyline HCl (Pamelor Cap) 25 mg HS PO 06/04/17 21:00 07/04/17 20:59 06/06/17 20:22 25 MG Fidaxomicin (Dificid Tab) 200 mg BID PO 06/04/17 20:00 06/18/17 19:59 06/07/17 07:35 200 MG Diclofenac Sodium (Voltaren 1% Top Gel) 1 appln Q12 EXT 06/05/17 21:00 07/05/17 20:59 06/07/17 07:36 1 APPLN Hydralazine HCl (HydrALAZINE INJ) 20 mg Q8 PRN IV. 06/06/17 09:45 07/06/17 09:44 Lisinopril (Zestril Tab) 10 mg QAM PO 06/07/17 08:00 07/07/17 07:59 06/07/17 07:36 10 MG Bupropion HCl (Wellbutrin-Xl Tab) 150 mg DAILY PO 06/07/17 08:00 07/07/17 07:59 06/07/17 07:35 150 MG (Virginie Quintanilla PA-C) Objective Vital Signs Date Time Temp Pulse Resp B/P (MAP) Pulse Ox O2 Delivery O2 Flow Rate FiO2 06/07/17 08:00 Room Air 06/07/17 07:31 36.5 78 20 151/85 (107) 98 Room Air 06/07/17 00:00 96 Room Air 06/06/17 23:58 36.7 63 16 127/84 (98) 95 Room Air 06/06/17 20:00 96 Room Air 06/06/17 16:12 36.8 68 18 143/91 (108) 96 Room Air 06/06/17 16:00 Room Air (iVrginie Quintanilla PA-C) Physical Exam General Appearance: no apparent distress Eyes: normal inspection, PERRL ENT: hearing grossly normal Neck: supple Respiratory/Chest: lungs clear, no respiratory distress, no accessory muscle use Cardiovascular: regular rate, rhythm Abdomen: normal bowel sounds, soft, + guarding, + tenderness (diffuse ttp ) Extremities: no pedal edema, no calf tenderness Neurologic/Psychiatric: alert, normal mood/affect, oriented x 3 Skin: normal color, warm/dry, no rash (Virginie Quintanilla ., PA-C) Laboratory Results Last 24 Hours Test 06/06/17 15:07 06/07/17 05:30 Urine Color YELLOW Urine Appearance CLEAR Urine pH 6.0 Urine Specific [place] 1.013 Urine Protein NEG Urine Glucose (UA) NEG Urine Ketones NEG Urine Occult Blood TRACE Urine Nitrite NEG Urine Bilirubin NEG Urine Urobilinogen NEG Urine Leukocyte Esterase NEG Urine WBC (Auto) 1-5 /hpf Urine RBC (Auto) 0-4 /hpf Urine Hyaline Casts (Auto) 0 /lpf Urine Epithelial Cells (Auto) >30 /lpf Urine Bacteria (Auto) 1+ Urine Pathogenic Casts /lpf White Blood Count 7.90 K/uL Red Blood Count 4.16 M/uL Hemoglobin 13.3 g/dL Hematocrit 40.2 % Mean Corpuscular Volume 96.6 fL Mean Corpuscular Hemoglobin 32.0 pg Mean Corpuscular Hemoglobin Concent 33.1 g/dl RDW Standard Deviation 44.6 fL RDW Coefficient of Variation 12.8 % Platelet Count 186 K/uL Mean Platelet Volume 9.4 fL Sodium Level 138 mmol/L Potassium Level 4.1 mmol/L Chloride Level 105 mmol/L Carbon Dioxide Level 28 mmol/L Anion Gap 5.0 mmol/L Blood Urea Nitrogen 5 mg/dl Creatinine 0.55 mg/dl Est Creatinine Clear Calc Drug Dose 84.9 ml/min Estimated GFR () 121.5 Estimated GFR (Non- 104.9 BUN/Creatinine Ratio 9.2 Random Glucose 100 mg/dl Calcium Level 8.9 mg/dl Phosphorus Level 4.3 mg/dl Magnesium Level 2.3 mg/dl (Virginie Quintanilla ., PA-C) Assessment and Plan 56 y/o female with a history of anxiety/depression, COPD, HTN, lung cancer s/p lobectomy, migraines, and chronic pain who presented to the ED on 06/04 with abdominal pain and diarrhea. C. diff testing positive. CT abdomen/pelvis from 06/03 shows no acute disease. Pt AVSS. Right ankle x-ray negative for fractures. Recurrent C.diff: - Admit to med/surg - Continue Dificid 200 mg PO BID, day #4 of 10, than Vancomycin daily or fecal transplant- ID following - Chest/abdominal x-ray on 06/06- no acute findings - Stool cultures negative - Toradol 30 mg IV q6h PRN pain - GI consulted, appreciate recommendations COPD- STABLE: Continue home inhalers HTN: - Lisinopril 10 mg PO qd - Hydralazine 20 mg IV q8h prn SBP >180 H/o lung cancer s/p MARGARITA lobectomy- noted Migraines- STABLE: Continue Nortriptyline 25 mg PO HS Anxiety, depression: Continue Nortriptyline, Wellbutrin 150 mg PO qd Chronic pain: - Continue Methadone 40 mg PO daily- managed by clinic in [place] - Urine drug screen positive for methadone, ecstasy and benzos. Pt apparently take Wellbutrin, could have false positive ecstasy - PCP will need to f/u regarding positive benzos. Outpt records has red flag to not prescribe these anymore, unclear source GI prophylaxis: Avoiding PPI due to c.diff infection DVT prophylaxis: Lovenox SQ daily Code status: LEVEL III, FULL NO [facility] V[facility] Dispo: Medically stable for discharge pending Dificid authorization- CM following - Will need referral to [place] for fecal transplant (Virginie Quintanilla, DEDRICK) Reviewed: Pt Seen/Exam by Me (Minda Monroe MD) History Physician Hall Manager Supervision Note: I interviewed and examined the patient. Discussed with AGNES Quintanilla and agree with findings and plan as documented in the note. Any exceptions or clarifications are listed here: Pt reports diarrhea has slowed down. Is asking me for ativan for her anxiety that is exacerbated from being in the hospital. When asked about a h/o anxiety, she says yes but has been better until now. Was previously on Paxil, but stopped it due to it "making me feel weird." Vitals reviewed NAD, AAOx3, ambulating around room without antalgic gait or any problems RRR no mgr CTAB no wcr Abd +BS soft NT ND Ext no edema, no calf tenderness 56 yo female with recurrent C. diff diarrhea, no colitis or toxic megacolon on imaging, no sepsis. COntinue Dificid x 10 day course here or as outpt if prior auth approved -then switch to po Vanco for long taper again vs going for fecal transplant [id number] BENZOS will be given due to her h/o abuse/diversion as per records -hydroxyzine prn anxuety ordered Documented By: Minda Monroe (Minda Monroe MD)
--- NOTE | 2017-06-07 14:42 | Infectious Disease Progress Nt ---
Progress Note Date of Service Jun 07, 2017. Subjective Pt evaluation today including: conversation w/ patient, physical exam, chart review, lab review, review of studies, conversation w/ toy consultant, review of inpatient medication list Still with abdominal pain but slowly improving. Diarrheal bowel movements decreasing. No fever. Tolerating Dificid without apparent difficulty. All Other Systems: Reviewed and Negative Medications Current Inpatient Medications Medications (Trade) Dose Ordered Sig/Nash Route Start Time Stop Time Status Last Admin Dose Admin Enoxaparin Sodium (Lovenox Inj) 40 mg Q24H SQ 06/04/17 21:00 07/04/17 20:59 06/06/17 20:22 40 MG Acetaminophen (Tylenol Tab) 650 mg Q4H PRN PO 06/04/17 14:00 07/04/17 13:59 Al Hydrox/Mg Hydrox/Simethicone (Maalox Max Susp) 15 ml Q4H PRN PO 06/04/17 14:00 07/04/17 13:59 06/05/17 16:42 15 ML Magnesium Hydroxide (Milk Of Magnesia Susp) 30 ml Q6H PRN PO 06/04/17 14:00 07/04/17 13:59 Polyethylene (Miralax Powder Packet) 17 gm DAILY PRN PO 06/04/17 14:00 07/04/17 13:59 Ondansetron HCl (Zofran Inj) 4 mg Q6H PRN IV 06/04/17 14:00 07/04/17 13:59 Ketorolac Tromethamine (Toradol Inj) 30 mg Q6H PRN IV 06/04/17 14:00 06/09/17 13:59 06/07/17 11:02 30 MG Albuterol (Ventolin Hfa Inhaler) 2 puffs Q6H PRN INH 06/04/17 14:30 07/04/17 14:29 Methadone HCl (Dolophine Tab) 40 mg QAM PO 06/05/17 08:00 06/19/17 08:59 06/07/17 07:35 40 MG Nortriptyline HCl (Pamelor Cap) 25 mg HS PO 06/04/17 21:00 07/04/17 20:59 06/06/17 20:22 25 MG Fidaxomicin (Dificid Tab) 200 mg BID PO 06/04/17 20:00 06/18/17 19:59 06/07/17 07:35 200 MG Diclofenac Sodium (Voltaren 1% Top Gel) 1 appln Q12 EXT 06/05/17 21:00 07/05/17 20:59 06/07/17 07:36 1 APPLN Hydralazine HCl (HydrALAZINE INJ) 20 mg Q8 PRN IV. 06/06/17 09:45 07/06/17 09:44 Lisinopril (Zestril Tab) 10 mg QAM PO 06/07/17 08:00 07/07/17 07:59 06/07/17 07:36 10 MG Bupropion HCl (Wellbutrin-Xl Tab) 150 mg DAILY PO 06/07/17 08:00 07/07/17 07:59 06/07/17 07:35 150 MG Objective Vital Signs Date Time Temp Pulse Resp B/P (MAP) Pulse Ox O2 Delivery O2 Flow Rate FiO2 06/07/17 08:00 Room Air 06/07/17 07:31 36.5 78 20 151/85 (107) 98 Room Air 06/07/17 00:00 96 Room Air 06/06/17 23:58 36.7 63 16 127/84 (98) 95 Room Air 06/06/17 20:00 96 Room Air 06/06/17 16:12 36.8 68 18 143/91 (108) 96 Room Air 06/06/17 16:00 Room Air Physical Exam General Appearance: WD/WN, no apparent distress Eyes: normal inspection, EOMI, sclerae normal ENT: normal ENT inspection, hearing grossly normal, pharynx normal Neck: supple, no adenopathy, thyroid normal, trachea midline Respiratory/Chest: chest non-tender, lungs clear, normal breath sounds, no respiratory distress Cardiovascular: regular rate, rhythm, no gallop, no murmur Abdomen: normal bowel sounds, soft, no organomegaly, + tenderness Extremities: non-tender, no calf tenderness, normal capillary refill Neurologic/Psychiatric: alert, oriented x 3 Skin: normal color, warm/dry, no rash Lymphatic: no adenopathy Laboratory Results Last 24 Hours Test 06/06/17 15:07 06/07/17 05:30 Urine Color YELLOW Urine Appearance CLEAR Urine pH 6.0 Urine Specific [place] 1.013 Urine Protein NEG Urine Glucose (UA) NEG Urine Ketones NEG Urine Occult Blood TRACE Urine Nitrite NEG Urine Bilirubin NEG Urine Urobilinogen NEG Urine Leukocyte Esterase NEG Urine WBC (Auto) 1-5 /hpf Urine RBC (Auto) 0-4 /hpf Urine Hyaline Casts (Auto) 0 /lpf Urine Epithelial Cells (Auto) >30 /lpf Urine Bacteria (Auto) 1+ Urine Pathogenic Casts /lpf White Blood Count 7.90 K/uL Red Blood Count 4.16 M/uL Hemoglobin 13.3 g/dL Hematocrit 40.2 % Mean Corpuscular Volume 96.6 fL Mean Corpuscular Hemoglobin 32.0 pg Mean Corpuscular Hemoglobin Concent 33.1 g/dl RDW Standard Deviation 44.6 fL RDW Coefficient of Variation 12.8 % Platelet Count 186 K/uL Mean Platelet Volume 9.4 fL Sodium Level 138 mmol/L Potassium Level 4.1 mmol/L Chloride Level 105 mmol/L Carbon Dioxide Level 28 mmol/L Anion Gap 5.0 mmol/L Blood Urea Nitrogen 5 mg/dl Creatinine 0.55 mg/dl Est Creatinine Clear Calc Drug Dose 84.9 ml/min Estimated GFR () 121.5 Estimated GFR (Non- 104.9 BUN/Creatinine Ratio 9.2 Random Glucose 100 mg/dl Calcium Level 8.9 mg/dl Phosphorus Level 4.3 mg/dl Magnesium Level 2.3 mg/dl Assessment and Plan Patient with recurrent C difficile colitis, with rapid recurrence after discontinuation of vancomycin. Patient to be treated with 10 day course of Dificid, but with then continue patient on vancomycin indefinitely unless fecal transplant can be performed. Will continue to follow.
[2017-06-07 16:00] VITALS: O2SAT 98
[2017-06-07 17:24] VITALS: BP 123/86; PULSE 80; TEMP 36.9
[2017-06-07] MEDS: hydrOXYzine HCL 25 MG TAB PO PRN (17:50)
[2017-06-07] MEDS: NORTRIPTYLINE HCL 25 MG CAP PO SCH (20:19)
[2017-06-07] MEDS: ENOXAPARIN 40 MG/0.4 ML SYR SQ SCH (20:20)
[2017-06-07 23:03] VITALS: BP 124/86; PULSE 67; TEMP 36.8; O2SAT 96
[2017-06-08 08:01] VITALS: BP 130/72; PULSE 80; TEMP 36.8; O2SAT 96
[2017-06-08] MEDS: METHADONE HCL 10 MG TAB PO SCH (08:05)
[2017-06-08] MEDS: FIDAXOMICIN TAB 200 MG TAB PO SCH ×2 (08:06→20:36)
[2017-06-08] MEDS: BuPROPion XL 150 MG TABCR PO SCH (08:06)
[2017-06-08] MEDS: LISINOPRIL 10 MG TAB PO SCH (08:06)
[2017-06-08] MEDS: DICLOFENAC SOD 1% GEL 100 GM TUBE EXT SCH ×3 (08:07→20:39)
[2017-06-08] MEDS: KETOROLAC TROMETHAMINE 30 MG/ML VIAL IV PRN ×3 (08:38→21:26)
[2017-06-08] MEDS: hydrOXYzine HCL 25 MG TAB PO PRN ×3 (08:40→21:26)
[2017-06-08] MEDS ORDERED: FIDA1TAB PO ×2 (10:52→10:53)
[2017-06-08] MEDS ORDERED: [UNRECOGNIZED DRUG - CODE] PO (11:16)
[2017-06-08] MEDS ORDERED: VANCOMYCIN (11:16)
--- NOTE | 2017-06-08 11:17 | Hospitalist Progress Note ---
Hospitalist Progress Note Date of Service Jun 08, 2017. (Virginie Quintanilla ., CHRISC) Subjective Pt evaluation today including: conversation w/ patient, physical exam, lab review, review of inpatient medication list Voiding: no voiding problems Patient ambulating around room. Eating and drinking OK. Diarrhea is improving. Abdominal cramping comes in waves but is improving. Still considering fecal transplant vs Vancomycin indefinitely- CM to setup outpatient referral to [facility] Patient denies any fever, chills, sweats, lightheadedness, dizziness, vision changes, CP, palpitations, edema, SOB, wheezing, cough, nausea, vomiting, urinary symptoms, melena, numbness/tingling, weakness, muscle/joint pain, anxiety/depression, active bleeding, or new skin discoloration/changes. (Virginie Quintanilla ., AGNES-C) Medications Current Inpatient Medications Medications (Trade) Dose Ordered Sig/Nash Route Start Time Stop Time Status Last Admin Dose Admin Enoxaparin Sodium (Lovenox Inj) 40 mg Q24H SQ 06/04/17 21:00 07/04/17 20:59 06/07/17 20:20 40 MG Acetaminophen (Tylenol Tab) 650 mg Q4H PRN PO 06/04/17 14:00 07/04/17 13:59 Al Hydrox/Mg Hydrox/Simethicone (Maalox Max Susp) 15 ml Q4H PRN PO 06/04/17 14:00 07/04/17 13:59 06/05/17 16:42 15 ML Magnesium Hydroxide (Milk Of Magnesia Susp) 30 ml Q6H PRN PO 06/04/17 14:00 07/04/17 13:59 Polyethylene (Miralax Powder Packet) 17 gm DAILY PRN PO 06/04/17 14:00 07/04/17 13:59 Ondansetron HCl (Zofran Inj) 4 mg Q6H PRN IV 06/04/17 14:00 07/04/17 13:59 Ketorolac Tromethamine (Toradol Inj) 30 mg Q6H PRN IV 06/04/17 14:00 06/09/17 13:59 06/08/17 08:38 30 MG Albuterol (Ventolin Hfa Inhaler) 2 puffs Q6H PRN INH 06/04/17 14:30 07/04/17 14:29 Methadone HCl (Dolophine Tab) 40 mg QAM PO 06/05/17 08:00 06/19/17 08:59 06/08/17 08:05 40 MG Nortriptyline HCl (Pamelor Cap) 25 mg HS PO 06/04/17 21:00 07/04/17 20:59 06/07/17 20:19 25 MG Fidaxomicin (Dificid Tab) 200 mg BID PO 06/04/17 20:00 06/18/17 19:59 06/08/17 08:06 200 MG Diclofenac Sodium (Voltaren 1% Top Gel) 1 appln Q12 EXT 06/05/17 21:00 07/05/17 20:59 06/08/17 08:07 1 APPLN Hydralazine HCl (HydrALAZINE INJ) 20 mg Q8 PRN IV. 06/06/17 09:45 07/06/17 09:44 Lisinopril (Zestril Tab) 10 mg QAM PO 06/07/17 08:00 07/07/17 07:59 06/08/17 08:06 10 MG Bupropion HCl (Wellbutrin-Xl Tab) 150 mg DAILY PO 06/07/17 08:00 07/07/17 07:59 06/08/17 08:06 150 MG Hydroxyzine HCl (Vistaril Tab) 25 mg Q8H PRN PO 06/07/17 15:30 07/07/17 15:29 06/08/17 08:40 25 MG (Virginie Quintanilla, PA-C) Objective Vital Signs Date Time Temp Pulse Resp B/P (MAP) Pulse Ox O2 Delivery O2 Flow Rate FiO2 06/08/17 08:01 36.8 80 16 130/72 (91) 96 Room Air 06/08/17 00:00 Room Air 06/07/17 23:03 36.8 67 20 124/86 (99) 96 Room Air 06/07/17 17:24 36.9 80 20 123/86 (98) 06/07/17 16:00 98 Room Air (Virginie Quintanilla, PA-C) Physical Exam General Appearance: no apparent distress Eyes: normal inspection, PERRL ENT: hearing grossly normal Neck: supple Respiratory/Chest: lungs clear, no respiratory distress, no accessory muscle use Cardiovascular: regular rate, rhythm Abdomen: normal bowel sounds, non tender, soft Extremities: no pedal edema, no calf tenderness Neurologic/Psychiatric: alert, normal mood/affect, oriented x 3 Skin: normal color, warm/dry, no rash (Virginie Quintanilla, DEDRICK) Assessment and Plan 56 y/o female with a history of anxiety/depression, COPD, HTN, lung cancer s/p lobectomy, migraines, and chronic pain who presented to the ED on 06/04 with abdominal pain and diarrhea. C. diff testing positive. CT abdomen/pelvis from 06/03 shows no acute disease. Pt AVSS. Right ankle x-ray negative for fractures. Recurrent C.diff: - Admit to med/surg - Continue Dificid 200 mg PO BID, day #5 of 10- then taper Vancomycin to daily indefinitely or fecal transplant- ID following - Chest/abdominal x-ray on 06/06- no acute findings - Stool cultures negative - Toradol 30 mg IV q6h PRN pain - GI consulted, appreciate recommendations COPD- STABLE: Continue home inhalers HTN: - Lisinopril 10 mg PO qd - Hydralazine 20 mg IV q8h prn SBP >180 H/o lung cancer s/p MARGARITA lobectomy- noted Migraines- STABLE: Continue Nortriptyline 25 mg PO HS Anxiety, depression: - Continue Nortriptyline, Wellbutrin 150 mg PO qd - Hydroxyzine HS PRN for anxiety Chronic pain: - Continue Methadone 40 mg PO daily- managed by clinic in [place] - Urine drug screen positive for methadone, ecstasy and benzos. Pt apparently takes Wellbutrin, could have false positive ecstasy - PCP will need to f/u regarding positive benzos. Outpt records has red flag to not prescribe these anymore, unclear source GI prophylaxis: Avoiding PPI due to c.diff infection DVT prophylaxis: Lovenox SQ daily Code status: LEVEL III, FULL NO MECH VENT Dispo: Discharge to home- likely tomorrow- CM following - Will need referral to [place] for fecal transplant (Virginie Quintanilla PA-C) Reviewed: Pt Seen/Exam by Me (Minda Monroe MD) History Physician Retail Branch Manager Supervision Note: I interviewed and examined the patient. Discussed with AGNES Quintanilla and agree with findings and plan as documented in the note. Any exceptions or clarifications are listed here: Patient has not had any diarrhea today. She reports that hydroxyzine is helping with her anxiety. I called to her methadone clinic and left a message for them to call me back to verify her dosing. A search at the [place] drug prescription database only brings up one prescription for oxycodone from last year, but no methadone. It is unclear if this is not available in that database or not. Vitals reviewed NAD, AAOx3 RRR no mgr CTAB no wcr Abd +BS soft NT ND Ext no edema, no calf tenderness 56 yo female with recurrent C. diff diarrhea, no colitis or toxic megacolon on imaging, no sepsis. -COntinue Dificid x 10 day course-her pharmacy as an outpatient will have it available tomorrow and she can be discharged in the morning. It was approved with a $3 co-pay -then switch to po Vanco for long taper until she goes for fecal transplant-to be arranged as an outpatient by her brick mason [id number] BENZOS will be given due to her h/o abuse/diversion as per records -hydroxyzine prn anxiety ordered and is helping History of opioid abuse/dependence-currently claims she is on methadone although this has not been verified -Awaiting phone call back from [facility] for verification of methadone use and proper dosing -Plan for discharge in the morning Documented By: Mnida Monroe (Minda Monroe MD)
[2017-06-08 15:10] VITALS: BP 109/72; PULSE 72; TEMP 36.9; O2SAT 97
[2017-06-08] MEDS ORDERED: NURSING VERBAL MED ORDER ONE (15:30)
[2017-06-08] MEDS: ALUMINUM/MAGNESIUM/SIMETH (MAALOX MAX) 30 ML UDC PO PRN (18:22)
[2017-06-08] MEDS: NORTRIPTYLINE HCL 25 MG CAP PO SCH (20:37)
[2017-06-08] MEDS: ENOXAPARIN 40 MG/0.4 ML SYR SQ SCH (20:40)
[2017-06-08 23:49] VITALS: BP 112/69; PULSE 78; TEMP 36.6; O2SAT 92
[2017-06-09 07:52] VITALS: BP 162/91; PULSE 84; TEMP 36.6; O2SAT 98
[2017-06-09] MEDS: KETOROLAC TROMETHAMINE 30 MG/ML VIAL IV PRN (08:17)
[2017-06-09] MEDS: BuPROPion XL 150 MG TABCR PO SCH (08:24)
[2017-06-09] MEDS: METHADONE HCL 10 MG TAB PO SCH (08:24)
[2017-06-09] MEDS: LISINOPRIL 10 MG TAB PO SCH (08:24)
[2017-06-09] MEDS: FIDAXOMICIN TAB 200 MG TAB PO SCH (08:24)
[2017-06-09] MEDS: DICLOFENAC SOD 1% GEL 100 GM TUBE EXT SCH (08:28)
[2017-06-09] MEDS: hydrOXYzine HCL 25 MG TAB PO PRN (09:59)
[2017-06-09] MEDS ORDERED: LSN10 PO (10:00)
[2017-06-09] MEDS ORDERED: BUPR150T7 PO (10:01)
[2017-06-09] MEDS ORDERED: BUPRTAB PO (10:02)
--- NOTE | 2017-06-09 10:06 | Discharge Instructions ---
Discharge Instructions Date of Service Jun 09, 2017. Admission Reason for Admission: Abd Pain,Diarrhea Discharge Discharge Diagnosis / Problem: C.diff infection Discharge Goals Goal(s): Decrease discomfort, Improve function, Improve disease control, Learn about illness, Diagnostic testing, Therapeutic intervention, Prevent Disease Progression Activity Recommendations Activity Limitations: resume your previous activity . Instructions / Follow-Up Instructions / Follow-Up C. diff infection: Dificid 200 mg twice daily until prescription is completed Once Dificid prescription is completed, you will begin a Vancomycin taper: Vancomycin 125 mg four times daily x7 days, then 125 mg three times a day x7 days, then 125 mg twice daily x7 days, then 125 mg daily indefinitely High blood pressure: Lisinopril 10 mg daily It is recommended you check you blood pressure 1-2 times daily and keep a log - take this log to PCP f/u. This will help your PCP further adjust blood pressure medication as needed Resume all other regular home medications as prescribed FOLLOW-UPS: Please follow-up with your PCP within 5-7 days Please follow-up with GI within 2-3 weeks They will help setup a referral to [facility] for a fecal transplant if desired Please follow-up/keep all of your subspecialty appointments Current Hospital Diet Patient's current hospital diet: AHA Diet (Heart Healthy) Discharge Diet Recommended Diet: AHA Diet (Heart Healthy) Pending Studies Studies pending at discharge: no Medical Emergencies . Who to Call and When: Medical Emergencies: If at any time you feel your situation is an emergency, please call 911 immediately. . Non-Emergent Contact Non-Emergency issues call your: Primary Care Provider, Furnace And Wash Equipment Operator Call Non-Emergent contact if: you have a fever, your pain is not controlled, your pain is worsening, your pain is unusual for you, your pain is concerning you, you have any medication questions . . "Provider Documentation" section prepared by Virginie Quintanilla. . VTE Core Measure Inpt VTE Proph given/why not?: Enoxaparin (Lovenox)JASON, T.ETom. Mychal, SCD's
--- NOTE | 2017-06-09 10:17 | Discharge Summary ---
Discharge Summary Date of Service Jun 09, 2017. Discharge Summary Admission Date: Jun 04, 2017 at 14:10 Discharge Date: Jun 09, 2017 Discharge Disposition: Home Principal Diagnosis: C. diff infection Problems/Secondary Diagnoses: Recurrent c.diff COPD HTN H/o lung cancer s/p MARGARITA lobectomy Migraines Anxiety/depression Chronic pain h/o opioid abuse/dependence Immunizations: Have You Had Influenza Vaccine: No History of Tetanus Vaccine?: No History of Pneumococcal: No History of Hepatitis B Vaccine: No Procedures: ABDOMEN 2VIEW W/PA CHEST RTN CLINICAL HISTORY: abdominal pain pain. Nausea. COMPARISON STUDY: 12/21/2016 FINDINGS: Mild stable emphysematous change bilaterally. Several small calcified mediastinal and/or hilar nodes unchanged. Diaphragms smooth. Nonobstructive bowel pattern. Cholecystectomy. IMPRESSION: No acute process of the abdomen or pelvis. Mild emphysematous change. The above report was generated using voice recognition software. It may contain grammatical, syntax or spelling errors. Electronically signed by: Bobby Osullivan M.D. 06/06/2017 9:54 AM Dictated Date/Time: 06/06/2017 9:53 AM The status of this report is Signed. Draft = Not yet reviewed or approved by Radiologist. Signed = Reviewed and approved by Radiologist. R ANKLE 2 VIEWS CLINICAL HISTORY: Right ankle pain. Heel pain. COMPARISON: None FINDINGS: Alignment of the right ankle is anatomic. There is no acute fracture. Talar dome is intact. There is cortical irregularity of the posterior inferior calcaneus, a nonspecific finding which is likely chronic. IMPRESSION: 1. No acute fracture or dislocation of the right ankle. 2. Cortical irregularity of the posterior inferior calcaneus. This finding is nonspecific but not acute. Electronically signed by: Jamie Guajardo M.D. 06/04/2017 1:39 PM Dictated Date/Time: 06/04/2017 1:37 PM The status of this report is Signed. Draft = Not yet reviewed or approved by Radiologist. Signed = Reviewed and approved by Radiologist. Consultations: Infectious disease- Dr. Prado GI- Dr. Sheffield/Dr. Amado Medication Reconciliation New Medications: Fidaxomicin (Dificid) 200 Mg Tab 200 MG PO BID for 5 Days, #10 TAB Vancomycin HCl (First-Vancomycin 25) 25 Mg/Ml [place] 125 MG PO UD for 30 Days, #70 DOSE 125 mg QID x7 days, 125 mg TID x7 days, 125 mg BID x7 days, 125 mg daily [vancomycin oral] () Diclofenac Sod (Voltaren) 100 Appln/100 Gm Gel 1 APPLN EXT Q12, #1 TUBE Please give patient tube from hospital Hydroxyzine HCl (Hydroxyzine HCl) 25 Mg Tab 25 MG PO Q6H PRN for anxiety, #20 TAB Lisinopril (Zestril) 10 Mg Tab 10 MG PO QAM for 30 Days, #30 TAB Continued Medications: Albuterol Hfa (Ventolin Hfa) 200 Puffs/28656 Mcg Aers 2-4 PUFFS INH Q6H PRN for SOB/Wheezing Bupropion Hcl (Wellbutrin Xl) 150 Mg Tab 1 TAB PO QAM for 30 Days, #30 TAB 2 Refills Wvfzryhfxt-Akozkmvsnzogp-Cmgll (Fioricet) 1 Cap Cap 1 CAP PO UD TAKE 1 CAPSULE AT ON SET OF MIGRAINE. MAY REPEAT AFTER 4 HOURS. NO MORE THAN 2 CAPSULES PER DAY Methadone Hcl (Dolophine) 10 Mg Tab 40 MG PO QAM, TAB Nortriptyline (Pamelor) 25 Mg Cap 25 MG PO HS, CAP Discharge Exam Review of Systems: Constitutional: No fever, No chills, No sweats, No weakness, No fatigue Eyes: No worsening of vision ENT: No hearing loss Respiratory: No cough, No shortness of breath, No hemoptysis Abdomen: + diarrhea, No pain, No nausea, No vomiting, No constipation, No GI bleeding Musculoskeletal: No joint pain, No muscle pain, No swelling, No calf pain Genitourinary - Female: No dysuria, No hematuria Neurologic: No weakness, No numbness/tingling Psychiatric: No depression symptoms, No anxiety Endocrine: No fatigue Hematologic / Lymphatic: No abnormal bleeding/bruising Integumentary: No rash, No itch, No new/changing skin lesions Physical Exam: General Appearance: no apparent distress Eyes: normal inspection, PERRL ENT: hearing grossly normal Neck: supple Respiratory/Chest: lungs clear, no respiratory distress, no accessory muscle use Cardiovascular: regular rate, rhythm Abdomen / GI: normal bowel sounds, non tender, soft, + distended Extremities: no calf tenderness, no pedal edema Neurologic/Psychiatric: alert, normal mood/affect, oriented x 3 Skin: normal color, warm/dry, no rash Hospital Course 56 y/o female with a history of anxiety/depression, COPD, HTN, lung cancer s/p lobectomy, migraines, and chronic pain who presented to the ED on 06/04 with abdominal pain and diarrhea. C. diff testing positive. CT abdomen/pelvis from 06/03 shows no acute disease. Pt AVSS. Right ankle x-ray negative for fractures. Recurrent C.diff: - Admit to med/surg - Continue Dificid 200 mg PO BID- last day of treatment 06/13 -- Patient then instructed to begin Vancomycin taper on 06/14- will taper to daily and continue indefinitely unless opts for fecal transplant - Chest/abdominal x-ray on 06/06- no acute findings - Stool cultures negative - ID consulted, appreciate recommendations- Dificid x10 days, then taper Vancomycin to daily and continue indefinitely vs fecal transplant - GI consulted, appreciate recommendations COPD- STABLE: Continue home inhalers HTN: - started Lisinopril 10 mg PO qd H/o lung cancer s/p MARGARITA lobectomy- noted Migraines- STABLE: Continue Nortriptyline 25 mg PO HS Anxiety, depression: - Continue Nortriptyline, Wellbutrin 150 mg PO qd - Hydroxyzine added PRN for anxiety Chronic pain: - Continue Methadone 40 mg PO daily- managed by [facility] in [place] - Urine drug screen positive for methadone, ecstasy and benzos. Pt apparently takes Wellbutrin, could have false-positive ecstasy - PCP will need to f/u regarding positive benzos. Outpt records has red flag to not prescribe these anymore, unclear source GI prophylaxis: Avoiding PPI due to c.diff infection DVT prophylaxis: Lovenox SQ daily Code status: LEVEL III, FULL NO [facility] Dispo: Discharge to home Total Time Spent: Greater than 30 minutes This includes examination of the patient, discharge planning, medication reconciliation, and communication with other providers. Discharge Instructions Please refer to the electronic Patient Visit Report (Discharge Instructions) for additional information. Follow-Up Please follow-up with your PCP within 5-7 days Please follow-up with GI within 2-3 weeks Will help setup referral for fecal transplant if patient chooses that option Please follow-up/keep all of your subspecialty appointments Additional Copies To Jose David Duke PA-C Reviewed: Pt Seen/Exam by Me History Physician Combination Man Supervision Note: I interviewed and examined the patient. Discussed with AGNES Quintanilla and agree with findings and plan as documented in the note. Any exceptions or clarifications are listed here: Patient has not had any diarrhea today or yesterday. She reports that hydroxyzine is helping with her anxiety. Is contemplating fecal transplant and thinks that she will end up doing it. Vitals reviewed NAD, AAOx3 RRR no mgr CTAB no wcr Abd +BS soft NT ND Ext no edema, no calf tenderness 56 yo female with recurrent C. diff diarrhea, no colitis or toxic megacolon on imaging, no sepsis. Significantly improved -COntinue Dificid x 10 day course -then switch to po Vanco for long taper until she goes for fecal transplant-to be arranged as an outpatient by her automotive product engineer [id number] BENZOS will be given due to her h/o abuse/diversion as per records -hydroxyzine prn anxiety ordered and is helping History of opioid abuse/dependence- on methadone [facility] called me back and verified her methadone dose is 40mg daily and she has been getting it there for over a year, consistently. last dose was 06/04/17 -Plan for discharge today Documented By: Minda Monroe
[2017-06-09] MEDS ORDERED: ATR25 PO (11:12)
[2017-06-09] MEDS ORDERED: VLTG EXT (11:12)
[2017-06-09 11:28] VITALS: BP 162/91; PULSE 84; TEMP 36.6; O2SAT 98
== END 2017-06-09 12:00 | disposition home or self-care (01) | DRG 373 ==
LOC: C.EDB 09:04 → C.4E 14:10 → ENRESERV 14:24
PROVIDERS: ADMIT Internal Medicine; ATTEND Family Medicine
DX: A04.71 Enterocolitis due to Clostridium difficile, recurrent (principal); F17.200 Nicotine dependence, unspecified, uncomplicated; I10 Essential (primary) hypertension; J44.9 Chronic obstructive pulmonary disease, unspecified; F41.9 Anxiety disorder, unspecified; F32.9 Major depressive disorder, single episode, unspecified; G89.29 Other chronic pain; M25.571 Pain in right ankle and joints of right foot; G43.909 Migraine, unspecified, not intractable, without status migrainosus; Z85.118 Personal history of other malignant neoplasm of bronchus and lung; Z88.5 Allergy status to narcotic agent; Z90.49 Acquired absence of other specified parts of digestive tract; Z80.9 Family history of malignant neoplasm, unspecified; Z82.49 Family history of ischemic heart disease and other diseases of the circulatory system

== ENCOUNTER 2018-05-08 09:40 | Inpatient (IN) ==
[2018-05-08 11:13] LABS: Basophils # (auto) 0.09 K/uL (0-0.2); Basophils % (auto) 0.6 %; Eosinophils # (auto) 0.47 K/uL (0-0.5); Eosinophils % (auto) 3.1 %; Hematocrit (blood only) 41.1 % (37-47); Hemoglobin 13.5 g/dL (12.0-16.0); Immature Granulocytes # (auto) 0.12 K/uL (0.00-0.02); Immature Granulocytes % (auto) 0.8 %; Lymphocytes # (auto) 1.83 K/uL (1.2-3.4); Mean Corpuscular Hgb Conc 32.8 g/dL (32-36); Mean Corpuscular Volume 94.9 fL (80-100); Monocytes # (auto) 1.24 K/uL (0.11-0.59); Monocytes % (auto) 8.1 %; Neutrophils # (auto) 11.55 K/uL (1.4-6.5); Neutrophils % (auto) 75.4 %; Platelet Count 346 K/uL (130-400); RDW Coefficient of Variation 14.4 % (11.5-14.5); RDW Standard Deviation 49.5 fL (36.4-46.3); Red Blood Count 4.33 M/uL (4.2-5.4)
[2018-05-08 11:33] LABS: Albumin Globulin Ratio 0.7 (0.9-2); Albumin Level 2.9 gm/dl (3.4-5.0); BUN Creatinine Ratio 7.5 (10-20); Bilirubin,Total 0.3 mg/dl (0.2-1); C Reactive Protein 6.05 mg/dl (0-0.29); Calcium 9.1 mg/dl (8.5-10.1); Creatinine Clr Calc Pharmacy 98.3 ml/min; Est GFR (African American) 115.4; Est GFR (Non-African American) 99.6; Globulin 4.2 gm/dl (2.5-4.0); Potassium 4.3 mmol/L (3.5-5.1); Total Protein 7.1 gm/dl (6.4-8.2)
[2018-05-08 14:42] LABS: BUN Creatinine Ratio 10.1 (10-20); Calcium 8.5 mg/dl (8.5-10.1); Est GFR (African American) 128.9; Est GFR (Non-African American) 111.2
[2018-05-08 18:16] LABS: Appearance Urine Clear (Clear); Bacteria Urine Automated Negative (Negative); Bilirubin Urine Negative (Negative); Color Urine Yellow; Epithelial Cell Urine Auto >30 /lpf (0-5); Glucose Urine UA Negative (Negative); Ketones Urine Negative (Negative); Leukocyte Esterase Urine Negative (Negative); Nitrite Urine Negative (Negative); Protein Urine Negative (Negative); Specific Gravity Urine 1.013 (1.000-1.030); Urobilinogen Urine Negative (Negative)
[2018-05-08 18:52] LABS: Mucus Urine Present (None Prsent)
[2018-05-10 18:47] LABS: BUN Creatinine Ratio 8.2 (10-20); C Reactive Protein 2.26 mg/dl (0-0.29); Calcium 8.3 mg/dl (8.5-10.1); Creatinine Clr Calc Pharmacy 129.5 ml/min; Est GFR (African American) 132.9; Est GFR (Non-African American) 114.7; Potassium 3.8 mmol/L (3.5-5.1)
[2018-05-10 18:50] LABS: Basophils # (auto) 0.05 K/uL (0-0.2); Basophils % (auto) 0.4 %; Eosinophils # (auto) 0.28 K/uL (0-0.5); Eosinophils % (auto) 2.2 %; Hematocrit (blood only) 29.1 % (37-47); Hemoglobin 9.3 g/dL (12.0-16.0); Immature Granulocytes # (auto) 0.05 K/uL (0.00-0.02); Immature Granulocytes % (auto) 0.4 %; Lymphocytes # (auto) 1.35 K/uL (1.2-3.4); Lymphocytes % (auto) 10.6 %; Mean Corpuscular Volume 95.1 fL (80-100); Monocytes # (auto) 0.82 K/uL (0.11-0.59); Monocytes % (auto) 6.4 %; Neutrophils # (auto) 10.19 K/uL (1.4-6.5); Platelet Count 242 K/uL (130-400); RDW Coefficient of Variation 14.1 % (11.5-14.5); RDW Standard Deviation 48.6 fL (36.4-46.3); Red Blood Count 3.06 M/uL (4.2-5.4); White Blood Count 12.74 K/uL (4.8-10.8)
[2018-05-11 09:28] LABS: Creatinine Clr Calc Pharmacy 123.5 ml/min; Est GFR (African American) 130.9; Est GFR (Non-African American) 112.9
[2018-05-11 23:01] LABS: Appearance Urine Clear (Clear); Bilirubin Urine Negative (Negative); Color Urine Yellow; Glucose Urine UA Negative (Negative); Ketones Urine Trace (Negative); Leukocyte Esterase Urine Negative (Negative); Nitrite Urine Negative (Negative); Protein Urine Negative (Negative); Urobilinogen Urine Negative (Negative); pH Urine 5.5 (4.5-7.5)
[2018-05-11 23:28] LABS: Amphetamines+Metham, Urine Neg (Neg); Barbiturates, Urine Neg (Neg); Benzodiazepine, Urine Pos (Neg); Cocaine, Urine Neg (Neg); MDMA (Ecstacy), Urine Pos (Neg); Methadone, Urine Pos (Neg); Opiate, Urine Pos (Neg); Phencyclidine, Urine Neg (Neg)
[2018-05-12 07:25] LABS: Hematocrit (blood only) 27.3 % (37-47); Hemoglobin 8.8 g/dL (12.0-16.0); Mean Corpuscular Hgb Conc 32.2 g/dL (32-36); Mean Corpuscular Volume 94.1 fL (80-100); Mean Platelet Volume 9.1 fL (7.4-10.4); Platelet Count 228 K/uL (130-400); RDW Coefficient of Variation 14.3 % (11.5-14.5); RDW Standard Deviation 49.4 fL (36.4-46.3)
[2018-05-12 07:52] LABS: BUN Creatinine Ratio 14.5 (10-20); Calcium 8.1 mg/dl (8.5-10.1); Creatinine Clr Calc Pharmacy 109.4 ml/min; Est GFR (African American) 126.2; Est GFR (Non-African American) 108.9; Potassium 3.3 mmol/L (3.5-5.1)
[2018-05-13 08:23] LABS: Hematocrit (blood only) 27.6 % (37-47); Hemoglobin 8.8 g/dL (12.0-16.0); Mean Corpuscular Hgb Conc 31.9 g/dL (32-36); Mean Corpuscular Volume 95.5 fL (80-100); Mean Platelet Volume 9.3 fL (7.4-10.4); Platelet Count 272 K/uL (130-400); RDW Coefficient of Variation 14.1 % (11.5-14.5); RDW Standard Deviation 49.3 fL (36.4-46.3); Red Blood Count 2.89 M/uL (4.2-5.4); White Blood Count 10.29 K/uL (4.8-10.8)
[2018-05-13 09:05] LABS: BUN Creatinine Ratio 19.3 (10-20); Calcium 8.1 mg/dl (8.5-10.1); Creatinine Clr Calc Pharmacy 89.3 ml/min; Est GFR (African American) 117.3; Est GFR (Non-African American) 101.2; Potassium 4.1 mmol/L (3.5-5.1)
[2018-05-14 07:08] LABS: Creatinine Clr Calc Pharmacy 86.4 ml/min; Est GFR (Non-African American) 100.1
[2018-05-15 14:29] LABS: 7-Aminoclonaz, Confirm NEGATIVE NG/ML (CUTOFF=25); Hydro-Alp Ur, GC/MS NEGATIVE NG/ML (CUTOFF=25); Hydrocodone Urine NEGATIVE NG/ML (CUTOFF=50); Hydromor Urine 91 NG/ML (CUTOFF=50); Hydroxyethylflurazepam, Conf NEGATIVE NG/ML (CUTOFF=50); Hydroxytriazolam NEGATIVE NG/ML (CUTOFF=50); Lorazepam, Ur GC/MS >2000 NG/ML (CUTOFF=50); MDA negative; MDEA negative; MDMA (Ecstasy) Urine, Confirm negative; Methadone, Ur Metabolite 18900 NG/ML (CUTOFF=100); Morphine Urine NEGATIVE NG/ML (CUTOFF=50); Nordiazepam, Confirm NEGATIVE NG/ML (CUTOFF=50); Norhydrocodone Conf Ur NEGATIVE NG/ML (CUTOFF=50); Noroxycodone Urine 2570 NG/ML (CUTOFF=50); Oxazepam Ur, GC/MS 1860 NG/ML (CUTOFF=50); Oxycodone Urine 98 NG/ML (CUTOFF=50); Temazepam, Confirm NEGATIVE NG/ML (CUTOFF=50)
[2018-05-16 03:53] LABS: Basophils # (auto) 0.04 K/uL (0-0.2); Basophils % (auto) 0.5 %; Eosinophils # (auto) 1.16 K/uL (0-0.5); Eosinophils % (auto) 13.4 %; Hematocrit (blood only) 26.3 % (37-47); Hemoglobin 8.3 g/dL (12.0-16.0); Immature Granulocytes # (auto) 0.04 K/uL (0.00-0.02); Immature Granulocytes % (auto) 0.5 %; Lymphocytes # (auto) 1.98 K/uL (1.2-3.4); Lymphocytes % (auto) 22.9 %; Mean Corpuscular Hgb Conc 31.6 g/dL (32-36); Mean Corpuscular Volume 94.6 fL (80-100); Monocytes # (auto) 0.98 K/uL (0.11-0.59); Monocytes % (auto) 11.3 %; Neutrophils # (auto) 4.46 K/uL (1.4-6.5); Neutrophils % (auto) 51.4 %; Platelet Count 234 K/uL (130-400); RDW Coefficient of Variation 13.8 % (11.5-14.5); RDW Standard Deviation 47.6 fL (36.4-46.3); Red Blood Count 2.78 M/uL (4.2-5.4); White Blood Count 8.66 K/uL (4.8-10.8)
[2018-05-16 04:11] LABS: Alanine Aminotransferase 11 U/L (12-78); Albumin Level 2.2 gm/dl (3.4-5.0); Aspartate Aminotransferase 12 U/L (15-37); BUN Creatinine Ratio 9.8 (10-20); Bilirubin Direct < 0.1 mg/dl (0-0.2); Blood Urea Nitrogen 6 mg/dl (7-18); Calcium 8.3 mg/dl (8.5-10.1); Carbon Dioxide 28 mmol/L (21-32); Chloride 110 mmol/L (98-107); Creatinine Clr Calc Pharmacy 89.3 ml/min; Est GFR (African American) 117.3; Est GFR (Non-African American) 101.2; Glucose 97 mg/dl (70-99); Sodium 142 mmol/L (136-145)
[2018-05-16 04:14] LABS: Alkaline Phosphatase 115 U/L (45-117); Bilirubin,Total 0.1 mg/dl (0.2-1); Total Protein 5.3 gm/dl (6.4-8.2)
[2018-05-16 04:37] LABS: RBC Morphology Unremarkable
[2018-05-17 07:18] LABS: Creatinine Clr Calc Pharmacy 89.3 ml/min; Est GFR (African American) 117.3; Est GFR (Non-African American) 101.2
[2018-05-18 08:16] LABS: Creatinine Clr Calc Pharmacy 83.7 ml/min; Est GFR (African American) 114.8; Est GFR (Non-African American) 99.1
== END 2018-05-18 11:53 | disposition home health service (06) ==
LOC: ED 09:40 → 3N 12:09 → 2N 05-11 13:53 → 3W 05-14 14:01

== ENCOUNTER 2024-06-26 14:27 | Inpatient (IN) ==
--- NOTE | 2024-06-26 15:02 | Emergency Department Note ---
Impression & Plan Acute hyponatremia, Alcohol abuse, Abdominal pain ED Provider Note NAME: MARCO MUÑIZ AGE: 63 SEX: F : 1960 ARRIVES VIA: Ambulance INFORMANT: Patient, EMS ED PROVIDER(S): Julio Suazo DO CHIEF COMPLAINT: Abdominal pain HPI: The patient is a 63-year-old female who presented to the emergency department by ambulance for evaluation of abdominal pain. The patient noticed right sided abdominal pain which began over the course of the last 24 hours. She does a history of of alcohol use as well as fatty liver disease. She states that she started noticing abdominal distention as well. She denies having any chest pain. She denies having any hematemesis. She has noticed some episodes of nausea and vomiting. The patient received IM Toradol prior to arrival with EMS personnel. ROS: See above HPI for pertinent positives & negatives. A total of 10 systems reviewed and were otherwise negative. PAST MEDICAL HISTORY: See Below PAST SURGICAL HISTORY: See Below FAMILY HISTORY: See Below SOCIAL HISTORY: See Below HOME MEDICATIONS: See Below ALLERGIES: See Below VITALS: See Below PHYSICAL EXAMINATION: GENERAL: The patient is awake and alert. The patient is anxious and appears to be uncomfortable. EYES: The conjunctivae are clear. The pupils are round and reactive. EARS, NOSE, MOUTH AND THROAT: The nose is without any evidence of any deformity. NECK: The neck is nontender and supple. RESPIRATORY: Normal respiratory effort is noted there is no evidence of wheezing rhonchi or rales CARDIOVASCULAR: Regular rate and rhythm noted there no murmurs rubs or gallops normal S1 normal S2. GASTROINTESTINAL: The abdomen is distended. There does appear to be a fluid wave. There was right-sided tenderness to palpation which was moderate. MUSCULOSKELETAL/EXTREMITIES: There is no evidence of gross deformity full range of motion is noted in the hips and shoulders. SKIN: There is no obvious evidence of any rash. There are no petechiae, pallor or cyanosis noted. NEUROLOGIC: Patient is awake alert and oriented x3 MEDICAL DECISION MAKING: The patient is a 63-year-old female who presented to the emergency department for an evaluation of abdominal pain. The patient arrived via ambulance. She did receive pain medication prior to arrival by the prehospital personnel after medical command was contacted. The patient was treated with IV fluids IV pain medication in the emergency department. She was reevaluated multiple times. I discussed the patient's laboratory and radiographic studies with her. She was found to have hyponatremia on her labs. This is likely related to the patient's alcohol use. Given her findings and comorbidities I do not feel the patient would be a good candidate for outpatient management. For this reason the [facility] [place] [facility] was notified about the patient. Triage Nursing notes reviewed. Prior medical records reviewed Vital Signs: reviewed and remarkable for elevated blood pressure. Differential diagnosis: Etiologies such as appendicitis, diverticulitis, obstruction, inflammatory bowel disease, renal colic, PUD, biliary pathology, pancreatitis, mesenteric ischemia, aortic pathology, infections, genitourinary, UTI, perforated viscus, as well as others were entertained. ER treatment provided: See below Diagnostics interpreted by me: ECG: EKG was obtained in the emergency department. My interpretation is normal sinus rhythm at 97 bpm. There was no PVCs noted. Incomplete left bundle branch block pattern was noted. LVH was suggested by voltage criteria. This was compared to a tracing from September 03, 2023. No changes were noted. Cardiac Monitoring: An order was placed for continuous cardiac monitoring. The monitor shows a rate of 80 bpm with sinus rhythm Laboratory studies: As stated above and show below. Imaging studies: See below. Radiographic imaging was reviewed by myself Consultation(s): Dr. Johnson who is on-call for the [facility] [place] [facility] group was notified about the patient. Past Med/Surg History Problem List (Updated 06/26/24 @ 20:13 by Julio Suazo DO) Abdominal pain (Acute) Alcohol abuse (Acute) Acute hyponatremia (Acute) Urethral stenosis New onset of headaches after age 50 Tension type headache Panic attack Rectocele Incomplete emptying of bladder Cellulitis (Acute) Depression Hypertension DVT prophylaxis Encounter for pre-operative examination Post op infection Current smoker Methadone maintenance therapy patient GERD (gastroesophageal reflux disease) Chronic pain syndrome Infection of right prosthetic hip joint History of Clostridium difficile infection Acute blood loss anemia Encephalopathy (Acute) Alcohol abuse Anxiety Proctocolitis (Acute) Abdominal pain C. difficile colitis (Acute) Diarrhea Medical History (Updated 06/26/24 @ 20:13 by Julio Suazo DO) Tenderness of head and neck Right knee pain Incisional hernia Foot fracture Methadone maintenance therapy patient Depression Hypertension Surgical History History of hernia repair History of hysterectomy Status post lobectomy of lung Status post hip replacement Family History Father Heart disease Brother Cancer Grandfather (Paternal) Cancer Mother Stroke Cataract Hypertension Cancer Nerve damage Sister Cancer Breast cancer Aunt Breast cancer Family/Other Cancer Social History Smoking Status: Current some day smoker Tobacco Type: E-cigarettes / Vaping Second Hand Exposure: No; Do You Dip or Chew Tobacco: No; Hx Alcohol Use: Yes Alcohol type: beer Hx Substance Use: No Preferred Language: Hungarian Communication Ability: Effective Visual Impairment: No Limitations Beliefs That Will Affect Care: None marital status: / Current Living Situation: Alone current occupational status: unemployed and disabled Feels Safe at Home: Yes Assistive Devices: Walker Allergies Allergies Allergy/AdvReac Type Severity Reaction Status Date / Time morphine Allergy Unknown HIVES Unverified 11/22/20 10:22 Morphine Derivatives Allergy Unknown Rash Uncoded 11/22/20 10:22 Home Meds Home Medications Medication Instructions Recorded Confirmed aspirin 81 mg tablet,delayed 81 mg PO DAILY PRN Pain 07/03/19 09/03/23 release (Adult Aspirin Regimen) albuterol sulfate 90 mcg/actuation 2 puff inhalation Q4H PRN sob 09/03/23 09/03/23 aerosol inhaler (Ventolin HFA) alprazolam 0.25 mg tablet 0.25 mg PO UD PRN Other 09/03/23 09/03/23 buprenorphine 8 mg-naloxone 2 mg See Rx Instructions .Route .COMPLEX 09/03/23 09/03/23 sublingual tablet losartan 50 mg tablet 50 mg PO BID 09/03/23 09/03/23 Previous Rx's Medication Instructions Recorded Saccharomyces boulardii 250 mg 250 mg PO DAILY #30 caps 05/17/18 capsule (Florastor) nortriptyline 75 mg capsule 75 mg PO .COMPLEX #30 caps 12/04/18 tamsulosin 0.4 mg capsule 0.4 mg PO DAILY #30 caps 09/19/19 oxycodone 5 mg tablet 5 mg PO Q6H PRN pain #10 tabs 09/03/23 Results & Data (ED) Vital Signs Vital Signs - 24 hr 06/26/24 14:52 02/25/25 14:53 06/26/24 16:05 Temperature 37.0 C Temperature Source Oral Pulse Rate 100 H 104 H Pulse Rate [Apical] Respiratory Rate 20 Respiratory Effort / Characteristics Non-Labored Respiratory Depth Normal Respiratory Pattern Regular Blood Pressure 155/108 H Blood Pressure [Left Arm] Blood Pressure Mean 123 Blood Pressure Mean [Left Arm] Pulse Oximetry 97 98 Oxygen Delivery Method Room Air Sepsis Recent Fever Within 48 Hours No Sepsis New/Unexplained Change in Mental Status N/A Sepsis Action Taken by Nursing No Action Required 06/26/24 16:53 06/26/24 19:27 Temperature Temperature Source Pulse Rate Pulse Rate [Apical] 89 88 Respiratory Rate 18 16 Respiratory Effort / Characteristics Non-Labored Spontaneous Respiratory Depth Normal Respiratory Pattern Regular Blood Pressure Blood Pressure [Left Arm] 145/82 H 157/113 H Blood Pressure Mean Blood Pressure Mean [Left Arm] 103 127 Pulse Oximetry 97 98 Oxygen Delivery Method Room Air Room Air Sepsis Recent Fever Within 48 Hours Sepsis New/Unexplained Change in Mental Status Sepsis Action Taken by Residential Medications Current Medication List: was personally reviewed by me Laboratory Data Attestation: I reviewed the patient's lab results. 06/26/24 15:49 06/26/24 15:49 Lab Results 06/26/24 06/26/24 06/26/24 Range/Units 15:49 17:20 17:32 WBC 7.33 (4.8-10.8) K/ul RBC 4.32 (4.20-5.40) M/uL Hgb 13.5 (12.0-16.0) g/dl Hct 37.1 (37.0-47.0) % MCV 85.9 (80.0-100.0) fL MCH 31.3 (25.0-34.0) pg MCHC 36.4 H (32.0-36.0) g/dL RDW Std Deviation 37.1 (36.4-46.3) fL RDW Coeff of Chaz 11.7 (11.5-14.5) % Plt Count 182 (130-400) K/uL MPV 9.1 L (9.4-12.4) fL Immature Gran % (Auto) 0.5 % Neut % (Auto) 67.5 % Lymph % (Auto) 21.6 % [place] % (Auto) 8.7 % Eos % (Auto) 0.7 % Baso % (Auto) 1.0 % Neut # (Auto) 4.95 (1.40-6.50) K/uL Lymph # (Auto) 1.58 (1.20-3.40) K/uL [place] # (Auto) 0.64 H (0.11-0.59) K/uL Eos # (Auto) 0.05 (0.00-0.50) K/uL Baso # (Auto) 0.07 (0.00-0.20) K/uL Immature Gran # (Auto) 0.04 (0.01-0.20) K/uL PT Cancelled 10.1 INR Cancelled 0.9 APTT Cancelled 28 PTT Ratio Cancelled 1.0 Sodium 121 L (136-145) mmol/L Potassium 3.5 (3.5-5.1) mmol/L Chloride 81 L (98-107) mmol/L Carbon Dioxide 25 (21-32) mmol/L Anion Gap 15 H (3-11) BUN 10 (6-23) mg/dl Creatinine 0.65 (0.6-1.2) mg/dl Est Cr Clr Drug Dosing 60.4 ml/min eGFR 98.87 BUN/Creatinine Ratio 15.4 (10-20) Glucose 90 (70-99(Fasting)) mg/dl Calcium 8.9 (8.6-10.3) mg/dl Magnesium 1.9 (1.7-2.4) mg/dl Total Bilirubin 0.8 (0.2-1.0) mg/dl Direct Bilirubin 0.2 (0-0.2) mg/dl AST 60 H (13-39) U/L ALT 38 (7-52) U/L Alkaline Phosphatase 108 H (34-104) U/L Troponin I High Sens 6.4 (0-14) pg/ml Total Protein 7.4 (6.0-8.3) gm/dl Albumin 4.4 (3.4-5.0) gm/dl Globulin 3.0 (2.5-4.0) gm/dl Albumin/Globulin Ratio 1.5 (0.9-2) Lipase 17 (11-82) U/L Urine Color Yellow Urine Appearance Clear (Clear) Urine pH 5.5 (4.5-7.5) Ur Specific [place] 1.007 (1.000-1.030) Urine Protein Negative (Negative) Urine Glucose (UA) Negative (Negative) Urine Ketones Negative (Negative) Urine Blood Trace H (Negative) Urine Nitrite Negative (Negative) Urine Bilirubin Negative (Negative) Urine Urobilinogen Negative (Negative) Ur Leukocyte Esterase Negative (Negative) Urine WBC (Auto) 0-5 (0-5) /hpf Urine RBC (Auto) 0-2 (0-2) /hpf U Hyaline Cast (Auto) 0-2 (0-2) /lpf U Epithel Cells (Auto) 0-2 (0-2) /hpf Urine Bacteria (Auto) None Seen (None Seen) Ethyl Alcohol mg/dL 90.2 H (<10.0) mg/dl Administered Medications Discontinued Medications Fentanyl Citrate (Fentanyl Citrate Pf 100 Mcg/2 Ml Vial) 50 mcg IV Q15M PRN PRN Reason: Pain Stop: 07/10/24 14:54 Last Admin: 06/26/24 16:19 Dose: 50 mcg Documented By: KULWINDER Ioversol (Optiray 320 100ml) 93 ml IV ONCE ONE Stop: 06/26/24 17:47 Last Admin: 06/26/24 17:46 Dose: 93 ml Documented By: DONNELL Ondansetron HCl (Ondansetron Inj 2 Mg/Ml 2 Ml Vial) 4 mg IV NOW STA Stop: 06/26/24 14:56 Last Admin: 06/26/24 16:04 Dose: 4 mg Documented By: KULWINDER Imaging Data Attestation: I personally reviewed and interpreted this imaging study as follows: My Impression: CT of the abdomen and pelvis was obtained radiology department. My interpretation is no free air or signs of bowel obstruction were noted, follow- up for blood Radiologist's Impression: Abdomen/Pelvis CT 06/26/24 14:56 Clinical History: Right upper quadrant pain Technique: Axial computed tomography images were obtained of the abdomen and pelvis after the administration of intravenous contrast. Comparison is made to the prior CT dated 11/22/2020. Findings: There is diffuse fatty infiltration of the liver. No liver mass lesion is seen. The portal vein is patent. The gallbladder has been removed. There is mild bile duct dilatation that is likely due to the postcholecystectomy state The spleen is of normal size. No focal splenic lesion is evident. The pancreas appears normal with no sign of acute or chronic pancreatitis and no mass lesion noted. The pancreatic duct is of normal caliber. The adrenal glands appear unremarkable. No definite renal or proximal ureteral calculi are seen on this contrast-enhanced study. There is no hydronephrosis or perinephric stranding. No renal mass lesion is identified. The aorta is of normal caliber. No abdominal adenopathy is seen. The stomach appears normal. There are duodenal diverticula adjacent to the pancreatic head. There is no sign of small bowel obstruction. There is diverticulosis without evidence of diverticulitis. No free intraperitoneal fluid or air is identified. No distal ureteral or bladder calculi are seen. No bladder mass lesion is evident. The iliac arteries are of normal caliber. No pelvic adenopathy is noted. There are small bilateral inguinal hernias containing only fat The lungs bases appear clear. There are bilateral hip replacements, resulting in surrounding artifact. No fracture is identified. No focal osseous lesion is seen Impression: 1. Fatty infiltration of the liver 2. Diverticulosis without evidence of diverticulitis Electronically signed by Abraham Romo 06-26-2024 6:17 PM Chest X-Ray 06/26/24 14:56 XR chest 1V portable CLINICAL HISTORY: pain COMPARISON STUDY: 04/26/2018 FINDINGS: Heart size and pulmonary vasculature are normal. No effusion, consolidation, or pneumothorax. IMPRESSION: No acute findings. ACT 112: Negative or not required by law. Electronically signed by: Rickie Geiger M.D. 06/26/2024 3:13 PM Discharge Plan Visit Data Chief Complaint: Flank Pain Stated Complaint: ABD PAIN ED Provider: Julio Suazo Discharge Problem: Acute hyponatremia, Alcohol abuse, Abdominal pain Patient Disposition: Being Evaluated by Hospitalist Forms Stand Alone Forms: My [facility] Prescriptions Prescriptions: No Action tamsulosin 0.4 mg capsule 0.4 mg PO DAILY Qty: 30 2RF aspirin [Adult Aspirin Regimen] 81 mg tablet,delayed release (DR/EC) 81 mg PO DAILY PRN (Reason: Pain) nortriptyline 75 mg capsule 75 mg PO .COMPLEX Qty: 30 2RF Rx Instructions: 75 mg PO 2-3 hours prior to bedtime; Saccharomyces boulardii [Florastor] 250 mg Capsule 250 mg PO DAILY Qty: 30 0RF Rx Instructions: [id number] alprazolam 0.25 mg tablet 0.25 mg PO UD PRN (Reason: Other) albuterol sulfate [Ventolin HFA] 90 mcg/actuation HFA aerosol inhaler 2 puff INHALATION Q4H PRN (Reason: sob) buprenorphine-naloxone 8-2 mg tablet, sublingual See Rx Instructions .ROUTE .COMPLEX Rx Instructions: 1 and 3/4 tab daily losartan 50 mg tablet 50 mg PO BID Rx Instructions: 100 mg dose that she splits for am and pm dosing oxycodone 5 mg tablet 5 mg PO Q6H PRN (Reason: pain) Qty: 10 0RF Referrals Referrals: Jose David Duke [Primary Care Provider] -
--- NOTE | 2024-06-26 15:15 | XRay Report ---
XR chest 1V portable CLINICAL HISTORY: pain COMPARISON STUDY: 04/26/2018 FINDINGS: Heart size and pulmonary vasculature are normal. No effusion, consolidation, or pneumothora x. IMPRESSION: No acute findings. ACT 112: Negative or not required by law. Electronically signed by: Rickie Geiger M.D. 06/26/2024 3:13 PM
[2024-06-26 16:04] LABS: Basophils # (auto) 0.07 K/uL (0.00-0.20); Eosinophils # (auto) 0.05 K/uL (0.00-0.50); Eosinophils % (auto) 0.7 %; Hematocrit (blood only) 37.1 % (37.0-47.0); Hemoglobin 13.5 g/dl (12.0-16.0); Immature Granulocytes # (auto) 0.04 K/uL (0.01-0.20); Immature Granulocytes % (auto) 0.5 %; Lymphocytes # (auto) 1.58 K/uL (1.20-3.40); Lymphocytes % (auto) 21.6 %; Mean Corpuscular Hemoglobin 31.3 pg (25.0-34.0); Mean Corpuscular Hgb Conc 36.4 g/dL (32.0-36.0); Mean Corpuscular Volume 85.9 fL (80.0-100.0); Mean Platelet Volume 9.1 fL (9.4-12.4); Monocytes # (auto) 0.64 K/uL (0.11-0.59); Monocytes % (auto) 8.7 %; Neutrophils # (auto) 4.95 K/uL (1.40-6.50); Neutrophils % (auto) 67.5 %; Platelet Count 182 K/uL (130-400); RDW Coefficient of Variation 11.7 % (11.5-14.5); RDW Standard Deviation 37.1 fL (36.4-46.3); Red Blood Count 4.32 M/uL (4.20-5.40); White Blood Count 7.33 K/ul (4.8-10.8)
[2024-06-26] MEDS: ONDANSETRON INJ 2 MG/ML 2 ML VIAL IV STA (16:04)
[2024-06-26] MEDS: fentaNYL citrate PF 100 MCG/2 ML VIAL IV PRN (16:19)
--- NOTE | 2024-06-26 16:23 | Electrocardiogram Report ---
Test Reason : Blood Pressure : */* mmHG Vent. Rate : 97 BPM Atrial Rate : 97 BPM P-R Int : 180 ms QRS Dur : 94 ms QT Int : 360 ms P-R-T Axes : 68 61 55 degrees QTcB Int : 457 ms Normal sinus rhythm Nonspecific ST abnormality Abnormal ECG When compared with ECG of 03-Sep-2023 10:22, Nonspecific T wave abnormality now evident in Inferior leads Confirmed by Julio Cmaargo ([id number]) on 06/26/2024 4:23:07 PM Referred By: Confirmed By: Julio Camargo
[2024-06-26 16:26] LABS: Troponin I High Sensitivity 6.4 pg/ml (0-14)
[2024-06-26 17:08] LABS: Albumin Level 4.4 gm/dl (3.4-5.0); Bilirubin Direct 0.2 mg/dl (0-0.2); Bilirubin,Total 0.8 mg/dl (0.2-1.0); Calcium 8.9 mg/dl (8.6-10.3); Magnesium 1.9 mg/dl (1.7-2.4); Potassium 3.5 mmol/L (3.5-5.1)
[2024-06-26 17:14] LABS: Albumin Globulin Ratio 1.5 (0.9-2); BUN Creatinine Ratio 15.4 (10-20); Creatinine Clr Calc Pharmacy 60.4 ml/min; Total Protein 7.4 gm/dl (6.0-8.3)
[2024-06-26 17:40] LABS: Appearance Urine Clear (Clear); Bacteria Urine Automated None Seen (None Seen); Bilirubin Urine Negative (Negative); Blood Urine Trace (Negative); Cast Urine Automated 0-2 /lpf (0-2); Color Urine Yellow; Epithelial Cell Urine Auto 0-2 /hpf (0-2); Glucose Urine UA Negative (Negative); Ketones Urine Negative (Negative); Leukocyte Esterase Urine Negative (Negative); Nitrite Urine Negative (Negative); Protein Urine Negative (Negative); RBC Urine Automated 0-2 /hpf (0-2); Specific Gravity Urine 1.007 (1.000-1.030); Urobilinogen Urine Negative (Negative); WBC Urine Automated 0-5 /hpf (0-5); pH Urine 5.5 (4.5-7.5)
[2024-06-26] MEDS: OPTIRAY 320 100ml IV ONE (17:46)
--- NOTE | 2024-06-26 18:17 | CT Scan Report ---
Clinical History: Right upper quadrant pain Technique: Axial computed tomography images were obtained of the abdomen and pelvis after the administration of intravenous contrast. Comparison is made to the prior CT dated 11/22/2020. Findings: There is diffuse fatty infiltration of the liver. No liver mass lesion is seen. The portal vein is patent. The gallbladder has been removed. There is mild bile duct dilatation that is likely due to the postcholecystectomy state The spleen is of normal size. No focal splenic lesion is evident. The pancreas appears normal with no sign of acute or chronic pancreatitis and no mass lesion noted. The pancreatic duct is of normal caliber. The adrenal glands appear unremarkable. No definite renal or proximal ureteral calculi are seen on this contrast-enhanced study. There is no hydronephrosis or perinephric stranding. No renal mass lesion is identified. The aorta is of normal caliber. No abdominal adenopathy is seen. The stomach appears normal. There are duodenal diverticula adjacent to the pancreatic head. There is no sign of small bowel obstruction. There is diverticulosis without evidence of diverticulitis. No free intraperitoneal fluid or air is identified. No distal ureteral or bladder calculi are seen. No bladder mass lesion is evident. The iliac arteries are of normal caliber. No pelvic adenopathy is noted. There are small bilateral inguinal hernias containing only fat The lungs bases appear clear. There are bilateral hip replacements, resulting in surrounding artifact. No fracture is identified. No focal osseous lesion is seen Impression: 1. Fatty infiltration of the liver 2. Diverticulosis without evidence of diverticulitis Electronically signed by Abraham Romo 06-26-2024 6:17 PM
[2024-06-26 18:35] LABS: INR 0.9 (0.9-1.1); Partial Thromboplastin Time 28 Seconds (21-31); Prothrombin Time 10.1 Seconds (9.0-12.0)
--- NOTE | 2024-06-26 19:16 | History & Physical Report ---
Date of Service June 26, 2024 Assessment & Plan (1) Acute hyponatremia: (2) Alcoholic hepatitis with ascites: (3) Hypokalemia: (4) Hypomagnesemia: (5) Methadone maintenance therapy patient: (6) Constipation: Plan Patient is a 63-year-old female with past medical history of COPD, HTN, anxiety/depression, alcohol use, on Subutex. She presented to the ED for 5 days of right-sided abdominal pain and abdominal distention. She was found to have a sodium of 121. She is being admitted for hyponatremia and alcohol hepatitis. #hyponatremia Patient with NA of 121 likely secondary to volume depletion with poor po intake/vomiting vs been potomania asymptomatic hypovolemic; clinically Serum osmol, Urine NA, Urine Osmol ordered promote oral hydration + 500 mL NSS @ 80 ml/hr overnight start sodium chloride 1G twice daily tablets repeat BMP with AM labs chloride 81, anion gap 15 - VBG with AM labs #Alcoholic hepatitis chronic alcohol use with new onset ascites does not met criteria for glucocorticoid need does not appear to need paracentesis on admission AP CT showed fatty infiltration of liver, no masses seen, portal vein is patent AST 60, Alk phos 108 Pain management with IV Toradol 10 Mg IV prn and oxycodone 5/10 mg prn for breakthrough pain (on 5 Mg at home) Avoid Tylenol use with mild transaminitis N/V - zofran PRN, Scheduled Protonix IV twice daily defer diuresis on admission as dry with hyponatremia above trend CMP #alcohol use Typically drinks 12 cans of beer/week; last drink reported 06/25 afternoon ETOH level 90.2 on admission no symptoms of withdrawal on admission AWSS protocol with Ativan prn Thiamine IV and Folic acid IV daily Folate, B12, B1 levels ordered prior to supplementation #electrolyte abnormalities K+ 3.5, Mg 1.9 on admission replete with 40 MeQ PO KCl and 1g IV mag on admission trend BMP and Mag #Subutex use continue home regimen - patient reports .5 tab in AM and .5 tab PM pharmacy aware additional pain regimen as above #constipation patient reports no BM for several days, tried fleet enema at home without success no obstruction seen on AP CT Colace as needed Chronic stable diagnoses: nicotine use - vaping daily, denies need for nicotine patch on admission COPD - continue home inhalers HTN - continue losartan anxiety/depression - continue nortriptyline, Wellbutrin, hydroxyzine, and alprazolam prn VTE ppx: SCDs Diet: clears, advance as tolerated with nausea Dispo: med/tele Admission and Anticipated Discharge Date Admission Date: 06/26/24 History of Present Illness Chief Complaint: flank pain Primary Care Provider: Jose David Duke Patient is a 63-year-old female with past medical history of COPD, HTN, anxiety/depression, alcohol use, on Subutex. She presented to the ED for 5 days of right-sided abdominal pain and abdominal distention. She was found to have a sodium of 121. She is being admitted for hyponatremia and alcohol hepatitis. Patient seen at bedside. She stated that proximately 5 days ago she developed bilateral abdominal and flank pain as well as abdominal distention. She stated the symptoms have been worsening over the past few days. She also endorses nausea and vomiting, vomiting approximately 1-2 times per day. She denies any hematemesis however does endorse hematemesis several weeks ago. She stated she has never had distention like this before. She has been unable to eat due to the nausea. She also stated that she has been constipated and used a Fleet enema recently without relief. She also endorses dyspnea on exertion for several days and has been using her home inhalers. Patient denies fever, chills, rhinorrhea, sore throat, cough, chest pain, LE edema, numbness, tingling. Regarding her alcohol use, she stated that for several years she has drank roughly a 12 pack/week. She denies daily alcohol use but states that she drinks multiple days a week. She denies ever going through alcohol withdrawal before. She stated her last drink was yesterday afternoon and denies any current withdrawal symptoms. She would be interested in quitting drinking. She also endorses nicotine use with vaping daily. She denies illicit drug use. She denies past history of DM or previous VTE. She stated she has had cervical and lung cancer and had a left upper lung resection approximately 5 years ago. She took her medications this morning but is due for her evening medications. She stated she is on Subutex takes half a tablet in the morning and half in the evening. She also takes alprazolam 0.25 Mg half a tablet in the morning and half in the evening. She wishes to be a conditional code; would want CPR but would not want intubation or any mechanical ventilation. She stated her pain was greater than a 10/10 upon arrival and after receiving fentanyl 50 mcg her pain is now 9/10. Allergies Allergy/AdvReac Type Severity Reaction Status Date / Time morphine Allergy Unknown HIVES Verified 06/27/24 12:51 Morphine Derivatives Allergy Unknown Rash Uncoded 06/27/24 12:51 Home Medications Medication Instructions Recorded Confirmed Type albuterol sulfate 90 mcg/actuation 2 puff inhalation Q4H PRN sob 09/03/23 06/26/24 History aerosol inhaler (Ventolin HFA) alprazolam 0.25 mg tablet 0.12 mg PO BID 06/26/24 06/26/24 History buprenorphine 8 mg-naloxone 2 mg 1.75 tab sublingual DAILY 06/26/24 06/26/24 History sublingual tablet bupropion HCl 300 mg 24 hr tablet, 300 mg PO DAILY 06/26/24 06/26/24 History extended release docusate sodium 100 mg capsule 100 mg PO BID PRN Constipation 06/26/24 06/26/24 History fluticasone fur. 100 mcg-umeclid 1 inh inhalation DAILY 06/26/24 06/26/24 History 62.5 mcg-vilant 25 mcg inhalat.powder (Trelegy Ellipta) hydroxyzine HCl 25 mg tablet 25 mg PO BID PRN Anxiety 06/26/24 06/26/24 History losartan 100 mg tablet 100 mg PO DAILY 06/26/24 06/26/24 History nortriptyline 75 mg capsule 75 mg PO .HS/UD 06/26/24 06/26/24 History omeprazole 20 mg tablet,delayed 20 mg PO DAILY 06/26/24 06/26/24 History release cyanocobalamin (vitamin B-12) 1,000 mcg PO DAILY #30 tabs 06/27/24 Rx 1,000 mcg tablet Past Med/Surg History Problem List (Updated 06/28/24 @ 00:05 by Background Gina) Constipation Hypomagnesemia Hypokalemia Alcoholic hepatitis with ascites Abdominal pain (Acute) Alcohol abuse (Acute) Acute hyponatremia (Acute) Urethral stenosis New onset of headaches after age 50 Tension type headache Panic attack Rectocele Incomplete emptying of bladder Cellulitis (Acute) Depression Hypertension DVT prophylaxis Encounter for pre-operative examination Post op infection Current smoker Methadone maintenance therapy patient GERD (gastroesophageal reflux disease) Chronic pain syndrome Infection of right prosthetic hip joint History of Clostridium difficile infection Acute blood loss anemia Encephalopathy (Acute) Alcohol abuse Anxiety Proctocolitis (Acute) Abdominal pain C. difficile colitis (Acute) Diarrhea Medical History (Updated 06/28/24 @ 00:05 by Kaz Fuentes) Tenderness of head and neck Right knee pain Incisional hernia Foot fracture Methadone maintenance therapy patient Depression Hypertension Surgical History History of hernia repair History of hysterectomy Status post lobectomy of lung Status post hip replacement Family History Father Heart disease Brother Cancer Grandfather (Paternal) Cancer Mother Stroke Cataract Hypertension Cancer Nerve damage Sister Cancer Breast cancer Aunt Breast cancer Family/Other Cancer Social History Smoking Status: Current every day smoker Tobacco Type: E-cigarettes / Vaping Second Hand Exposure: No; Do You Dip or Chew Tobacco: No; Hx Alcohol Use: Yes Alcohol type: beer Hx Substance Use: No Preferred Language: Cymro Communication Ability: Effective Visual Impairment: No Limitations Bundle Helper Required: No Beliefs That Will Affect Care: None marital status: / Current Living Situation: Alone current occupational status: unemployed and disabled Feels Safe at Home: Yes Assistive Devices: Cane and Walker Review of Systems Review of Systems: see HPI Physical Exam Physical Exam: The patient is awake, alert and oriented 3, well developed and well nourished, normocephalic and atraumatic, in no acute distress. Non-toxic appearing. HEENT- EOMI, mucous membranes dry. Hearing grossly intact. Heart-normal S1 and S2. No murmurs, rubs or gallops. Lungs-clear bilaterally, no respiratory distress, no accessory muscle use. Abdomen-normal bowel sounds and soft. Diffuse tenderness to palpation. Mild ascites noted. Extremities- no clubbing, cyanosis, or edema. Rheumatologic-normal range of motion. Psychiatric-normal affect. Results & Data Results & Data Vital Signs (Past 12 Hours) Vital Signs Temp Pulse Pulse Resp BP BP Pulse Ox 06/26/24 16:53 89 18 145/82 H 97 06/26/24 16:05 98 06/26/24 14:53 104 H 06/26/24 14:52 37.0 C 100 H 20 155/108 H 97 O2 Del Method 06/26/24 16:53 Room Air 06/26/24 16:05 06/26/24 14:53 06/26/24 14:52 Room Air Laboratory Results Reviewed CBC, PT/INR, CMP, UA, troponin, mag, ETOH Diagnostic Findings reviewed CXR and AP CT Medications Administered EMS - IV Toradol ED - Zofran IV, Fentanyl 50 mcg admission - Na CL table 1gm, Toradol 10mg IV, Protonix IV ECG Additional Comments: NSR rate 97 qtc 457 Code Status & VTE Plan Code Status She wishes to be a conditional code; would want CPR but would not want intubation or any mechanical ventilation. VTE Prophylaxis Plan VTE Prophylaxis will be ordered: Yes Supervising Physician Co-Signing Physician Notes Attending addendum: I have physically seen this patient, have supervised the SLUEMAN's activities, and agree with the H&P unless as otherwise noted. Assessment and Plan: The patient is a 63-year-old female with past medical history including COPD, hypertension, anxiety/depression, alcohol use, on chronic Suboxone. She presents to the emergency department with 5 days of right-sided abdominal pain and distention. Workup in the emergency department included a sodium level of 121, AST 60, alcohol level 90.2, magnesium 1.9, and CT scan of abdomen pelvis suggesting fatty liver and diverticulosis. Patient is referred to [facility] for assessment for hyponatremia and alcoholic hepatitis. #Hyponatremia- Sodium 121. Serum osmolality, urine osmolality and urine sodium pending Likely secondary to [place] slime Start sodium chloride tablets 1 g p.o. twice daily Placed on NSS at 80 mL/h x 1 L Repeat laboratories in the a.m. #Alcoholic hepatitis- Chronic alcohol use with new onset ascites Does not meet criteria for steroid use at this time CT scan of abdomen pelvis shows fatty liver, diverticulosis without diverticulitis, no masses, and portal vein is patent. Toradol and oxycodone as noted Zofran 4 mg IV every 6 hours as needed Pantoprazole 40 mg IV twice daily Follow serial CBC with differential and chemistry profile #Alcohol abuse- Reports drinking 12 cans of beer per week Alcohol level 90.2 on admission AWSS protocol with IV Ativan Thiamine 100 mg IV daily Folic acid 1 mg IV daily #Subutex use- Continue dosing as noted Remaining orders and notations as noted PG Care Time/CCT Total # of Minutes Spent Total Time Spent with Patient: Total time spent is greater than 50% in coordination of care (as documented) at patient's floor/unit and/or counseling patient: Coding Level of Care Code 53474 INT INP/OBS CARE 3/75MIN Diagnoses Acute hyponatremia E87.1 Alcoholic hepatitis with ascites K70.11 Hypokalemia E87.6 Hypomagnesemia E83.42 Methadone maintenance therapy patient F11.20 Constipation K59.00
[2024-06-26] MEDS: PANTOprazole 40 MG/10 ML SYR IV ONE (20:38)
[2024-06-26] MEDS: MAGNESIUM SULFATE / D5W 1 GM/100 ML BAG IV ONE (20:38)
[2024-06-26] MEDS: KETOROLAC TROMETHAMINE 15 MG/ML VIAL IV ONE (20:38)
[2024-06-26] MEDS: POTASSIUM CHLORIDE CRTAB 20 MEQ TABCR PO STA (20:38)
[2024-06-26] MEDS: SODIUM CHLORIDE 1 GM TABLET PO SCH (21:25)
[2024-06-26] MEDS: SODIUM CHLORIDE 0.9% 500 ML IV SCH (21:26)
[2024-06-26] MEDS ORDERED: LORazepam 2 MG/1 ML VIAL IV PRN ×2 (21:51)
[2024-06-26] MEDS ORDERED: Ativan IV Alcohol Withdrawal--Active Protocol IV PRN (21:51)
[2024-06-26 21:53] LABS: Folate (Folic Acid),Ser orPlas > 22.30 ng/ml (>5.38)
[2024-06-26 21:54] LABS: Vitamin B12 399 pg/ml (180-914)
[2024-06-26] MEDS: ALPRAZolam 0.25 MG TABLET PO SCH (22:35)
[2024-06-26] MEDS: NORTRIPTYLINE HCL 25 MG CAP PO SCH (22:58)
[2024-06-26] MEDS: FOLIC ACID 1 MG in SYRINGE 9.8 ML IV SCH (22:59)
[2024-06-27 04:40] LABS: Base Excess VBG 3.3 mEq/L; HCO3 VBG 29 mmol/L; Oxygen Saturation VBG 90.2 %; PCO2 VBG 48 mmHg (38-50); PO2 VBG 60 mmHg; pH VBG 7.39 (7.36-7.41)
[2024-06-27 04:46] LABS: Basophils # (auto) 0.05 K/uL (0.00-0.20); Basophils % (auto) 0.8 %; Eosinophils # (auto) 0.06 K/uL (0.00-0.50); Eosinophils % (auto) 0.9 %; Hematocrit (blood only) 32.7 % (37.0-47.0); Hemoglobin 11.3 g/dl (12.0-16.0); Immature Granulocytes # (auto) 0.01 K/uL (0.01-0.20); Immature Granulocytes % (auto) 0.2 %; Lymphocytes # (auto) 1.32 K/uL (1.20-3.40); Lymphocytes % (auto) 20.5 %; Mean Corpuscular Hemoglobin 30.1 pg (25.0-34.0); Mean Corpuscular Hgb Conc 34.6 g/dL (32.0-36.0); Mean Platelet Volume 8.9 fL (9.4-12.4); Monocytes # (auto) 0.71 K/uL (0.11-0.59); Neutrophils # (auto) 4.28 K/uL (1.40-6.50); Neutrophils % (auto) 66.6 %; Platelet Count 166 K/uL (130-400); RDW Coefficient of Variation 11.9 % (11.5-14.5); RDW Standard Deviation 38.4 fL (36.4-46.3); Red Blood Count 3.76 M/uL (4.20-5.40); White Blood Count 6.43 K/ul (4.8-10.8)
[2024-06-27 05:11] LABS: Albumin Globulin Ratio 1.9 (0.9-2); Albumin Level 3.8 gm/dl (3.4-5.0); BUN Creatinine Ratio 16.1 (10-20); Calcium 8.5 mg/dl (8.6-10.3); Creatinine Clr Calc Pharmacy 63.3 ml/min; Magnesium 2.5 mg/dl (1.7-2.4); Phosphorus 3.5 mg/dl (2.5-4.9); Potassium 3.9 mmol/L (3.5-5.1); Total Protein 5.8 gm/dl (6.0-8.3)
--- NOTE | 2024-06-27 07:07 | Hospitalist Progress Note ---
Date of Service June 27, 2024 Assessment & Plan (1) Abdominal pain: (2) Acute hyponatremia: (3) Hypertension: (4) Depression: (5) Rectocele: (6) Constipation: Plan Najma is a 63-year-old female with a medical history of COPD, HTN, anxiety/depression, alcohol use, on Subutex. She presented to the ED on 06/26 for 5 days of right-sided abdominal pain and abdominal distention. She was found to have a sodium of 121. She was admitted for hyponatremia and alcohol hepatitis. #Abdominal pain, Constipation -Patient reports no BM for several days, tried fleet enema at home without success, painful abdomen -06/[address] showed no obstruction, diverticulosis without diverticulitis -Colace as needed -Trial Miralax 51gm PO to clear stool #Hyponatremia -NA 121 -->126 -Likely secondary to volume depletion with poor po intake/vomiting vs been potomania -Asymptomatic -Hypovolemic; clinically -Chloride 81, anion gap 15 -Serum osmol 273, Urine Osmol 170 -Urine Na pending -Promote oral hydration + 500 mL NSS @ 80 ml/hr overnight -Continue sodium chloride 1G twice daily tablets -Repeat BMP with AM labs #Alcoholic steatohepatitis -Chronic alcohol use with new onset ascites -Does not met criteria for glucocorticoid need -Did not appear to need paracentesis on admission -06/[address] showed fatty infiltration of liver, no masses seen, portal vein is patent -AST 60 -->47, ALT 38 -->32, Alk phos 108 -->89 -Pain management with IV Toradol 10 Mg IV prn and oxycodone 5/10 mg prn for breakthrough pain (on 5 Mg at home) -Avoid Tylenol use with mild transaminitis -N/V - Zofran PRN, Scheduled Protonix IV twice daily -Trend CMP -Order Hep C screening to eliminate other potential causes of hepatitis #Alcohol use -Typically drinks 12 cans of beer/week; last drink reported 06/25 afternoon -ETOH level 90.2 on admission -Folate, B12, B1 levels ordered prior to supplementation -AWSS protocol with Ativan prn -Thiamine IV and Folic acid IV daily -Some tremors noted today that started overnight. Continue to monitor for withdrawal symptoms. #Electrolyte abnormalities -K+ 3.5--> 3.9, Mg 1.9 --> 2.5H -Discontinue 40 MeQ PO KCl and 1g IV mag -Discontinue Mag labs #Subutex use -Continue home regimen - patient reports .5 tab in AM and .5 tab PM -Pharmacy aware -Additional pain regimen as above Chronic stable diagnoses: #Nicotine use - vaping daily, denies need for nicotine patch on admission #COPD - continue home inhalers #HTN - continue losartan #Anxiety/depression - continue nortriptyline, Wellbutrin, hydroxyzine, and alprazolam prn VTE ppx: SCDs Diet: clears, advance as tolerated with nausea Dispo: med/tele Admission and Anticipated Discharge Date Admission Date: June 26, 2024 Supervising Physician Co-Signing Physician Notes I personally examined the patient and verified all morgan points of history and exam, discussed case, and agree with decision making with Dr Salcido and Shruti Longoria abdominal pain no BM for 5 days struggles with rectocele vitals noted anxious abdomen mild distention mod tenderness no guarding no rebound abdominal pain - constipation. miralax. outpt f/u for rectocele hyponatremia - EtOH intake and poor po food most likely - improving. fortunately asymptomatic EtOH abuse - likely depression mediated. will need to discuss further, today was too distraught about abdominal pain / constipation to be able to have meaningful discussions about this otherwise as above Subjective Najma reported poor sleep overnight and some tremors. Feels abdominal distension is worsening. No bowel movement in 5 days and feels like "her anus is protruding" and that it is painful. No fevers, chills, confusion, AH/VH. Some SOB, no chest pain. No n/v/d. Review of Systems Review of Systems: Per HPI. Physical Exam Physical Exam: General:Alert and oriented, no acute distress, tearful. HEENT: Normocephalic, moist oral mucosa, some scleral icterus, no conjunctival injection Cardio: Regular rate and rhythm, no murmur Resp:Lungs clear to auscultation b/l, no wheezes or rhonchi. GI: Soft and tender leo bilaterally in lower quadrants, distended, bowel sounds active Skin: Warm, pink, dry, Psych: Mood-affect congruence. Extremities: No LE edema. Results & Data Results & Data Vital Signs (Past 12 Hours) Vital Signs Temp Pulse Pulse Resp BP BP Pulse Ox 06/27/24 05:00 71 18 102/69 96 06/27/24 04:00 70 18 100/69 93 06/27/24 03:33 70 22 93 06/27/24 03:00 70 20 114/74 91 06/27/24 02:30 71 17 93 06/27/24 02:00 72 17 94/65 L 93 06/27/24 01:36 73 18 91 06/27/24 01:00 73 17 115/74 91 06/27/24 00:54 75 17 95 06/27/24 00:00 77 19 95/75 L 93 06/27/24 00:00 73 18 95/75 L 93 06/27/24 00:00 06/26/24 23:33 77 15 136/96 98 06/26/24 23:24 36.4 C 79 17 136/96 99 06/26/24 23:24 06/26/24 22:40 82 06/26/24 22:36 80 16 145/91 H 96 06/26/24 19:27 88 16 157/113 H 98 Pulse Ox O2 Del Method O2 Del Method 06/27/24 05:00 Room Air 06/27/24 04:00 Room Air 06/27/24 03:33 Room Air 06/27/24 03:00 Room Air 06/27/24 02:30 Room Air 06/27/24 02:00 Room Air 06/27/24 01:36 Room Air 06/27/24 01:00 Room Air 06/27/24 00:54 Room Air 06/27/24 00:00 Room Air 06/27/24 00:00 Room Air 06/27/24 00:00 92 Room Air 06/26/24 23:33 Room Air 06/26/24 23:24 Room Air 06/26/24 23:24 99 Room Air 06/26/24 22:40 06/26/24 22:36 Room Air 06/26/24 19:27 Room Air Resident Activity Tracking Resident Involvement: Resident Care Provided Care Provided: Adult Hospital Medicine Resident Supervision Co-Signing Physician Notes I have personally seen this pt and agree with student doctor Neftali as noted above with exceptions/elaborations noted below: Pt presenting to the hospital for abdominal pain, diffuse but mostly across lower abdomen. No bowel movement in 5 days and she does note chronic constipation, but never this bad. She notes she has a rectocele and follows with a doctor in [place] with plans for intervention in a few weeks. Main concern for her today is ongoing abdominal pain and feels she really needs to have a bowel movement. She states the last few days she has had poor oral intake as she feels nausea or full very quickly if she does eat. Today, will trial miralax and if not working will escalate bowel regime until able to start clearing stool. CT abd relatively unremarkable for acute processes otherwise. Continue AWSS protocol. Transaminitis improving. Hyponatremia most likely due to extremely poor intake +/- alcohol use/beer protomania (3) Hypertension Hypertension type: essential hypertension Qualified Code(s): I10 - Essential (primary) hypertension (4) Depression Depression Type: other depression Qualified Code(s): F32.89 - Other specified depressive episodes
[2024-06-27] MEDS ORDERED: BUPRENORPHINE/NALOXONE 2/0.5MG TAB SL SCH (08:00)
[2024-06-27] MEDS: ALBUTEROL HFA 8 GM INHALER INH PRN (09:14)
[2024-06-27] MEDS: POLYETHYLENE (MIRALAX) 17 GM PACK PO ONE (09:14)
[2024-06-27] MEDS: BUPRENORPHINE/NALOXONE 2/0.5MG TAB SL SCH (09:17)
[2024-06-27] MEDS: PANTOprazole 40 MG/10 ML SYR IV SCH (09:20)
[2024-06-27] MEDS: buPROPion XL 300 MG TABCR PO SCH (09:53)
[2024-06-27] MEDS: oxyCODONE HCL IR 5 MG TAB (IMMEDIATE RELEASE) PO PRN ×2 (10:06→19:50)
[2024-06-27] MEDS: FLUTICASONE FUROATE 100MCG 14 PUFFS/INHALER INH SCH (10:29)
[2024-06-27] MEDS: UMECLIDINIUM/VILANTEROL 62.5/25MCG 7 PUFFS/INHALER INH SCH (10:29)
[2024-06-27] MEDS: LOSARTAN POTASSIUM 50 MG TAB PO SCH (10:29)
[2024-06-27] MEDS: THIAMINE HCL 100 MG in SYRINGE 9 ML IV SCH (10:32)
[2024-06-27] MEDS: LORazepam 2 MG/1 ML VIAL IV PRN (12:51)
--- NOTE | 2024-06-27 16:53 | Billing Data ---
Date of Service June 27, 2024 Coding Level of Care Code 00640 SUB INP/OBS CARE MIN
--- NOTE | 2024-06-27 16:53 | Billing Data ---
Date of Service June 27, 2024 Coding Level of Care Code 45292 SUB INP/OBS CARE MIN
[2024-06-27] MEDS: POLYETHYLENE (MIRALAX) 17 GM PACK PO SCH (19:49)
[2024-06-27] MEDS: LORazepam 2 MG/1 ML VIAL IV STA (23:02)
[2024-06-27] MEDS: HYDROmorphone INJ 0.5 MG/0.5 ML SYR IV STA (23:02)
[2024-06-28 06:03] LABS: Basophils # (auto) 0.04 K/uL (0.00-0.20); Basophils % (auto) 0.8 %; Eosinophils # (auto) 0.14 K/uL (0.00-0.50); Eosinophils % (auto) 2.8 %; Hematocrit (blood only) 33.3 % (37.0-47.0); Hemoglobin 11.4 g/dl (12.0-16.0); Immature Granulocytes # (auto) 0.03 K/uL (0.01-0.20); Immature Granulocytes % (auto) 0.6 %; Lymphocytes # (auto) 1.39 K/uL (1.20-3.40); Lymphocytes % (auto) 27.6 %; Mean Corpuscular Hemoglobin 30.2 pg (25.0-34.0); Mean Corpuscular Hgb Conc 34.2 g/dL (32.0-36.0); Mean Corpuscular Volume 88.3 fL (80.0-100.0); Monocytes # (auto) 0.84 K/uL (0.11-0.59); Monocytes % (auto) 16.7 %; Neutrophils % (auto) 51.5 %; Platelet Count 174 K/uL (130-400); Red Blood Count 3.77 M/uL (4.20-5.40); White Blood Count 5.04 K/ul (4.8-10.8)
[2024-06-28 06:15] LABS: Albumin Globulin Ratio 1.5 (0.9-2); Albumin Level 3.6 gm/dl (3.4-5.0); BUN Creatinine Ratio 11.7 (10-20); Bilirubin,Total 0.4 mg/dl (0.2-1.0); Calcium 8.5 mg/dl (8.6-10.3); Creatinine Clr Calc Pharmacy 65.5 ml/min; Globulin 2.4 gm/dl (2.5-4.0); Magnesium 2.2 mg/dl (1.7-2.4); Phosphorus 3.5 mg/dl (2.5-4.9); Potassium 3.6 mmol/L (3.5-5.1)
--- NOTE | 2024-06-28 06:57 | Hospitalist Progress Note ---
Date of Service June 28, 2024 Assessment & Plan (1) Abdominal pain: (2) Acute hyponatremia: (3) Hypertension: (4) Depression: (5) Rectocele: (6) Constipation: Plan Najma is a 63-year-old female with a medical history of COPD, HTN, anxiety/depression, alcohol use, on Subutex. She presented to the ED on 06/26 for 5 days of right-sided abdominal pain and abdominal distention. She was found to have a sodium of 121. She was admitted for hyponatremia and alcohol hepatitis. #Abdominal pain, Constipation -Patient reports no BM for several days, tried fleet enema at home without success, painful abdomen -06/[address] showed no obstruction, diverticulosis without diverticulitis -Colace as needed -06/28 Trialed 2 rounds Miralax 51gm PO to clear stool. Will order GoLYTELY (PEG- 3350 and electrolytes). #Hyponatremia -NA 121 -->126-->131 -Likely secondary to volume depletion with poor po intake/vomiting vs been potomania -Asymptomatic -Hypovolemic; clinically -Chloride 81, anion gap 15 -Serum osmol 273, Urine Osmol 170 -Urine Na pending -Promote oral hydration + 500 mL NSS @ 80 ml/hr overnight -Continue sodium chloride 1G twice daily tablets -Repeat BMP with AM labs #Alcoholic steatohepatitis/Acute hepatitis C -Chronic alcohol use with new onset ascites -Does not met criteria for glucocorticoid need -Did not appear to need paracentesis on admission -06/[address] showed fatty infiltration of liver, no masses seen, portal vein is patent -AST 60 -->47-->49, ALT 38 -->32-->34, Alk phos 108 -->89-->88 -Pain management with IV Toradol 10 Mg IV prn and oxycodone 5/10 mg prn for breakthrough pain (on 5 Mg at home) -Avoid Tylenol use with mild transaminitis -N/V - Zofran PRN, Scheduled Protonix IV twice daily -Trend CMP -Prelim Hep C screening positive. Patient reports hep screening negative 6 mo ago. Hep C RNA pending. -Order Hep B screening. -Will order HIV screening after patient consent is obtained. #Alcohol use -Typically drinks 12 cans of beer/week; last drink reported 06/25 afternoon -ETOH level 90.2 on admission -Folate, B12, B1 levels ordered prior to supplementation -AWSS protocol with Ativan prn -Thiamine IV and Folic acid IV daily -Some tremors noted yesterday and today along with irritability, feeling hot. Continue to monitor for withdrawal symptoms. #Electrolyte abnormalities -K+ 3.5--> 3.9, Mg 1.9 --> 2.5H -Discontinued 40 MeQ PO KCl and 1g IV mag -Discontinued Mag labs -Resolved #Subutex use -Continue home regimen - patient reports .5 tab in AM and .5 tab PM -Pharmacy aware -Additional pain regimen as above Chronic stable diagnoses: #Nicotine use - vaping daily, denies need for nicotine patch on admission #COPD - continue home inhalers #HTN - continue losartan #Anxiety/depression - continue nortriptyline, Wellbutrin, hydroxyzine, and alprazolam prn VTE ppx: SCDs Diet: clears, advance as tolerated with nausea Dispo: med/tele Admission and Anticipated Discharge Date Admission Date: June 26, 2024 Supervising Physician Co-Signing Physician Notes I personally examined the patient and verified all morgan points of history and exam, discussed case, and agree with decision making with Dr Salcido and Shruti Lindsay MS2 feels like she's no better. loose stools but belly feels about the same vitals noted anxious abdomen mild distention mild tenderness able to push harder than yesterday but still operator batch or continuous no guarding no rebound abdominal pain - constipation. miralax 51g repeated dosing only helping a little -> golytely. outpt f/u for rectocele hyponatremia - EtOH intake and poor po food most likely - ongoing improvement. fortunately asymptomatic EtOH abuse - likely depression mediated. will need to discuss further, today was too distraught about abdominal pain / constipation to be able to have meaningful discussions about this otherwise as above Subjective No acute overnight events. Najma feels tired, snappy, having tremors. She continues to not produce solid stool in her BM, only "orange liquid" from her anus. Wearing a diaper. No headache, some SOB, no chest pain. Reports abdominal pain 8/10. She said she tested for viral hepatitis about 6 months ago and did not receive a positive result. Review of Systems Review of Systems: As per HPI. Physical Exam Physical Exam: General:Alert and oriented, no acute distress. HEENT: Normocephalic, moist oral mucosa Cardio: Regular rate and rhythm, no murmur Resp:Lungs clear to auscultation b/l, no wheezes or rhonchi GI: Soft and nontender, nondistended, bowel sounds active Skin: Warm, pink, dry. Psych: Mood-affect congruence. Slightly tearful. Results & Data Results & Data Vital Signs (Past 12 Hours) Vital Signs Temp Pulse Pulse Resp BP Pulse Ox O2 Del Method 06/28/24 03:29 37 C 75 16 96/66 L 97 Room Air 06/27/24 23:21 36.7 C 75 20 92/60 L 99 Room Air 06/27/24 23:00 75 06/27/24 19:11 77 06/27/24 19:00 36.5 C 76 18 138/74 97 Room Air Resident Activity Tracking Resident Involvement: Resident Care Provided Care Provided: Adult [facility] Medicine Resident Supervision Co-Signing Physician Notes I have personally seen this pt and agree with student doctor Neftali as noted above with exceptions/elaborations noted below: Pt presenting to the hospital for abdominal pain, diffuse but mostly across lower abdomen. No bowel movement in 5 days and she does note chronic constipation, but never this bad. She notes she has a rectocele and follows with a doctor in [place] with plans for intervention in a few weeks. Yesterday given 2 rounds of 3 caps of miralax, will give another 3 today as pt is pooping but not much volume of stool out yet. She states last night for awh ile she did feel much better but then abdominal pain started again. Belly is still soft, middle abdomen tenderness noted not worse than yesterday. Continue AWSS protocol. Transaminitis improving. Hyponatremia most likely due to extremely poor intake +/- alcohol use/beer protomania and this is improving. (3) Hypertension Hypertension type: essential hypertension Qualified Code(s): I10 - Essential (primary) hypertension (4) Depression Depression Type: other depression Qualified Code(s): F32.89 - Other specified depressive episodes
[2024-06-28] MEDS: POLYETHYLENE (MIRALAX) 17 GM PACK PO SCH (13:00)
[2024-06-28] MEDS: LORazepam 2 MG/1 ML VIAL IV STA (15:49)
--- NOTE | 2024-06-28 17:50 | Billing Data ---
Date of Service June 28, 2024 Coding Level of Care Code 03547 SUB INP/OBS CARE MIN
[2024-06-28] MEDS: LAVAGE SOLUTION 4000ML PO STA (18:37)
[2024-06-28] MEDS: hydrOXYzine HCl 25 MG TAB PO PRN (20:18)
[2024-06-28] MEDS: KETOROLAC TROMETHAMINE 15 MG/ML VIAL IV PRN (20:19)
[2024-06-29 06:33] LABS: Basophils # (auto) 0.05 K/uL (0.00-0.20); Basophils % (auto) 0.9 %; Eosinophils # (auto) 0.14 K/uL (0.00-0.50); Eosinophils % (auto) 2.6 %; Hematocrit (blood only) 28.8 % (37.0-47.0); Hemoglobin 9.8 g/dl (12.0-16.0); Immature Granulocytes # (auto) 0.02 K/uL (0.01-0.20); Immature Granulocytes % (auto) 0.4 %; Lymphocytes # (auto) 1.64 K/uL (1.20-3.40); Lymphocytes % (auto) 30.5 %; Mean Corpuscular Hemoglobin 30.3 pg (25.0-34.0); Mean Corpuscular Volume 89.2 fL (80.0-100.0); Mean Platelet Volume 9.2 fL (9.4-12.4); Monocytes # (auto) 0.74 K/uL (0.11-0.59); Monocytes % (auto) 13.8 %; Neutrophils # (auto) 2.79 K/uL (1.40-6.50); Neutrophils % (auto) 51.8 %; Platelet Count 177 K/uL (130-400); RDW Coefficient of Variation 11.9 % (11.5-14.5); RDW Standard Deviation 38.7 fL (36.4-46.3); Red Blood Count 3.23 M/uL (4.20-5.40); White Blood Count 5.38 K/ul (4.8-10.8)
[2024-06-29 06:48] LABS: Albumin Globulin Ratio 1.7 (0.9-2); Albumin Level 3.3 gm/dl (3.4-5.0); BUN Creatinine Ratio 9.8 (10-20); Bilirubin,Total 0.3 mg/dl (0.2-1.0); Calcium 8.2 mg/dl (8.6-10.3); Creatinine Clr Calc Pharmacy 64.4 ml/min; Potassium 3.5 mmol/L (3.5-5.1); Total Protein 5.3 gm/dl (6.0-8.3)
[2024-06-29] MEDS: DOCUSATE SODIUM 100 MG CAP PO PRN (08:23)
--- NOTE | 2024-06-29 08:45 | Hospitalist Progress Note ---
Date of Service June 29, 2024 Assessment & Plan (1) Abdominal pain: (2) Acute hyponatremia: (3) Hypertension: (4) Depression: (5) Rectocele: (6) Constipation: Plan Najma is a 63-year-old female with a medical history of COPD, HTN, anxiety/depression, alcohol use, on Subutex. She presented to the ED on 06/26 for 5 days of right-sided abdominal pain and abdominal distention. She was found to have a sodium of 121. She was admitted for hyponatremia and alcohol hepatitis. #Abdominal pain, Constipation -Patient reports no BM for several days, tried fleet enema at home without success, painful abdomen -06/[address] showed no obstruction, diverticulosis without diverticulitis -Colace as needed -06/28 Trialed 2 rounds Miralax 51gm PO to clear stool. -06/29 Ordered GoLYTELY (PEG-3350 and electrolytes). Continues to produce only liquid, no solid stool -Unsure exact quantity of Golytely that patient consumed, appears that the bottle still contains a large portion of liquid -06/29 KUB shows moderate retained stool. No bowel obstruction seen. -Afternoon of 06/29: Ordered additional Miralax 51gm, mg citrate 148mL, Bisacodyl 5mg tablet, Colace #Hyponatremia -NA 121 -->126-->131-->133 -Likely secondary to volume depletion with poor po intake/vomiting vs beer potomania -Asymptomatic, Hypovolemic -Serum osmol 273, Urine Osmol 170 -Continue sodium chloride 1G twice daily tablets -Repeat BMP with AM labs #Alcoholic steatohepatitis/ hepatitis C -Chronic alcohol use with new onset ascites -Does not met criteria for glucocorticoid need -Did not appear to need paracentesis on admission -06/[address] showed fatty infiltration of liver, no masses seen, portal vein is patent -AST 60 -->47-->49-->39, ALT 38 -->32-->34-->29, Alk phos 108 -->89-->88-->75 -Pain management with IV Toradol 10 Mg IV prn and oxycodone 5/10 mg prn for breakthrough pain (on 5 Mg at home) -Avoid Tylenol use with mild transaminitis -N/V - Zofran PRN, Scheduled Protonix IV twice daily -Trend CMP -Prelim Hep C screening positive. Hep C RNA test not performed due to inadequate sample- will resend lab order -Patient reports previously being be told she had hepatitis but unsure type and chronicity so will follow up with Hep C RNA as above -Order Hep B screening. -Consider ordering HIV testing if patient consents to testing #Alcohol use -Typically drinks 12 cans of beer/week; last drink reported 06/25 afternoon -ETOH level 90.2 on admission -Folate, B12, B1 levels ordered prior to supplementation -AWSS protocol with Ativan prn -Thiamine IV and Folic acid IV daily -Some tremors noted yesterday and today along with irritability, feeling hot. Continue to monitor for withdrawal symptoms. #Electrolyte abnormalities, Resolved -K+ 3.5--> 3.9, Mg 1.9 --> 2.5H -Supplementation ordered PRN #Subutex use -Continue home regimen - patient reports .5 tab in AM and .5 tab PM -Pharmacy aware -Additional pain regimen as above Chronic stable diagnoses: #Nicotine use - vaping daily, denies need for nicotine patch on admission #COPD - continue home inhalers #HTN - continue losartan #Anxiety/depression - continue nortriptyline, Wellbutrin, hydroxyzine, and alprazolam prn VTE ppx: SCDs Diet: clears, advance as tolerated with nausea Dispo: med/tele Admission and Anticipated Discharge Date Admission Date: June 26, 2024 Supervising Physician Co-Signing Physician Notes I personally examined the patient and verified all morgan points of history and exam, discussed case, and agree with decision making with Dr Martinez and A Du MS2 when i first enter the room with the team, she is helping put a blanket under her roomate's splinted ankle. when we start to talk to her she immediately gets hostile towards the A Du MS2 without exactly explaining things but saying "you know what we talked about earlier" and then without saying why basically telling her to get out. given her clear clinical stability (was walking in the room and helping her roomate) combined with her immediate harsh and hostile treatment of A Du MS2, i informed pt that this was innapropriate and unacceptable treatment and that i would come back later. after rounding on a few other patients, i returned to the room myself. pt apologized for her behavior and noted that it was out of line. after lengthy discussions it was clear that her outbursts relate to severe anxiety - and given that her anxiety comes into play with her EtOH abuse as well as her constipation as well as her overall anxious demeanor - in d/w A Du it was around when she tried to discuss the anxiety at all that the patient had become hostile. this was confirmed when i said something (i honestly don't even remember what) that made the patient think that i was looking to discuss her anxiety when she then immediately became transiently hostile to me too - but then collected herself. after discussions she at least expressed understanding that the anxiety is a major factor in her morbidity/we discussed coping strategies/social support as well as how chronic benzo use can often make the overall feelings of anxiety worse by creating physical dependency/withdrawal cycles. as it relates to her abdominal pain - she hadn't had much BM yet because she hadn't actually taken much at all of the bowel prep. after several iterations of discussions (and discussing that we didn't have to use the bowel prep - there are other options - but if we do nothing we cannot expect improvement in her condition) she decided to take the bowel prep. i got her fresh ice water, reassured her that we are here for her/care for her/understand that she's anxious and scared and will happilly care for her the same as if her angry outburst had not occurred to begin with. vitals noted anxious, tearful, at times angry - but no physical distress. at first walking in the room, steady. abd softer but still distended. drank ~20% of golyteley since last night at the most. abdominal pain - constipation. see above - golytely. discussed how anxiety can also exac constipation. will need chronic bowel regimen as well. outpt f/u for rectocele hyponatremia - EtOH intake and poor po food most likely - ongoing improvement. fortunately asymptomatic EtOH abuse - likely depression/anxiety mediated. discussed that her EtOH intake is probably a maladaptive coping skill - discussed more productive and less harmful coping skills. otherwise as above Subjective No acute overnight events. Najma feels irritable and angry. Reports being sweaty and continues to have abdominal pain. She continues to not produce solid stool in her BM, only pinkish liquid. She states that the only thing that has helped is the Ativan. She reports that she is still having withdrawal symptoms of tremors. Review of Systems Review of Systems: As per HPI. Physical Exam Physical Exam: General:Alert and oriented. Cardio: Regular rate and rhythm, no murmur Resp:Lungs clear to auscultation b/l, no wheezes or rhonchi GI: Soft and tender to palpation, nondistended, bowel sounds hyperactive Skin: Warm, pink, dry. Psych: Mood-affect congruence. Tearful. Extremities: No LE edema. Results & Data Results & Data Vital Signs (Past 12 Hours) Vital Signs Temp Pulse Pulse Resp BP BP Pulse Ox 06/29/24 07:50 66 06/29/24 07:38 36.6 C 67 18 137/81 96 06/29/24 03:41 37 C 72 16 101/59 L 96 06/28/24 23:32 36.9 C 78 16 96/64 L 98 06/28/24 23:30 36.4 C L 76 12 117/71 97 06/28/24 21:43 79 O2 Del Method 06/29/24 07:50 06/29/24 07:38 Room Air 06/29/24 03:41 Room Air 06/28/24 23:32 Room Air 06/28/24 23:30 Room Air 06/28/24 21:43 Resident Activity Tracking Resident Involvement: Resident Care Provided Care Provided: Adult Hospital Medicine Resident Supervision Co-Signing Physician Notes I saw the patient alongside ARIEL Lindsay and agree with exam findings and assessment/plan, and have added modifications/additions to the assessment and plan as appropriate. Patient is tearful at bedside and requesting for Ativan as it seems to be the only medication that has made her feel better. Expresses frustration with worsening back pain and abdominal pain despite multiple rounds of medications to address ongoing stool burden. Physical Exam General: restless, tearful at times CV; regular rate and rhythm, no murmur, no LE edema Abdomen: soft/nondistended but tender to palpation Skin: warm, dry, no rashes (3) Hypertension Hypertension type: essential hypertension Qualified Code(s): I10 - Essential (primary) hypertension (4) Depression Depression Type: other depression Qualified Code(s): F32.89 - Other specified depressive episodes
--- NOTE | 2024-06-29 11:27 | XRay Report ---
KUB HISTORY: constipation COMPARISON STUDY: 06/26/2024 FINDINGS: There is moderate retained stool. No bowel obstruction seen. Stable right upper quadrant saez rgical clips. IMPRESSION: No acute findings. ACT 112: Negative or not required by law. The above report was generated using voice recognition software. It may contain grammatical, syntax o r spelling errors. Electronically signed by: Rickie Geiger M.D. 06/29/2024 11:25 AM
[2024-06-29 13:43] LABS: Hepatitis C Vira RNA (Log) PCR DNR Log IU/mL
[2024-06-29] MEDS: bisacodyL 5 MG TABEC PO ONE (14:08)
[2024-06-29] MEDS: DOCUSATE SODIUM 100 MG CAP PO ONE (16:33)
[2024-06-29] MEDS: MAGNESIUM CITRATE 296 ML/BTL PO STA (16:48)
[2024-06-29] MEDS: LORazepam 2 MG/1 ML VIAL IV STA (16:53)
[2024-06-29] MEDS: POLYETHYLENE (MIRALAX) 17 GM PACK PO ONE (16:54)
--- NOTE | 2024-06-29 17:19 | Billing Data ---
Date of Service June 29, 2024 Coding Level of Care Code 85241 SUB INP/OBS CARE MIN
[2024-06-29] MEDS: ONDANSETRON INJ 2 MG/ML 2 ML VIAL IV PRN (19:24)
[2024-06-30 06:13] LABS: Basophils # (auto) 0.07 K/uL (0.00-0.20); Basophils % (auto) 1.2 %; Eosinophils # (auto) 0.17 K/uL (0.00-0.50); Eosinophils % (auto) 2.8 %; Hematocrit (blood only) 31.3 % (37.0-47.0); Hemoglobin 10.6 g/dl (12.0-16.0); Immature Granulocytes # (auto) 0.02 K/uL (0.01-0.20); Immature Granulocytes % (auto) 0.3 %; Lymphocytes # (auto) 1.63 K/uL (1.20-3.40); Lymphocytes % (auto) 27.2 %; Mean Corpuscular Hemoglobin 30.3 pg (25.0-34.0); Mean Corpuscular Hgb Conc 33.9 g/dL (32.0-36.0); Mean Corpuscular Volume 89.4 fL (80.0-100.0); Mean Platelet Volume 8.8 fL (9.4-12.4); Monocytes # (auto) 0.69 K/uL (0.11-0.59); Monocytes % (auto) 11.5 %; Neutrophils # (auto) 3.42 K/uL (1.40-6.50); Platelet Count 180 K/uL (130-400); RDW Coefficient of Variation 12.1 % (11.5-14.5); RDW Standard Deviation 39.2 fL (36.4-46.3)
[2024-06-30 06:25] LABS: Albumin Globulin Ratio 1.7 (0.9-2); Albumin Level 3.3 gm/dl (3.4-5.0); BUN Creatinine Ratio 6.5 (10-20); Bilirubin,Total 0.3 mg/dl (0.2-1.0); Calcium 8.3 mg/dl (8.6-10.3); Creatinine Clr Calc Pharmacy 63.3 ml/min; Globulin 1.9 gm/dl (2.5-4.0); Potassium 3.3 mmol/L (3.5-5.1); Total Protein 5.2 gm/dl (6.0-8.3)
[2024-06-30] MEDS: POTASSIUM CHLORIDE CRTAB 20 MEQ TABCR PO STA (07:38)
--- NOTE | 2024-06-30 07:41 | Hospitalist Progress Note ---
Date of Service June 30, 2024 Assessment & Plan (1) Abdominal pain: (2) Acute hyponatremia: (3) Hypertension: (4) Depression: (5) Rectocele: (6) Constipation: Plan Najma is a 63-year-old female with a medical history of COPD, HTN, anxiety/depression, alcohol use, on Subutex. She presented to the ED on 06/26 for 5 days of right-sided abdominal pain and abdominal distention. She was found to have a sodium of 121. She was admitted for hyponatremia and alcohol hepatitis. #Abdominal pain, Constipation - Patient w/ abdominal distension and pain, tried fleet enema at home w/o success - CTAP 06/26 w/o sign of obstruction or infection - 06/28 Received Miralax 51 mg x 2 w/o change - 06/29 Received GoLytely and electrolytes w/ production of liquid stools only KUB showing ongoing moderate stool burden Second dose of GoLytely w/ Mg Citrate, Bisacodyl, and Colace ordered in PM - 06/30 Patient continues to pass liquid stool, distension and discomfort ongoing but improved Would repeat KUB if pain increases Changed diet to regular, likely to increase bowel motility Continue Docusate PRN and MiraLax BID Hyponatremia (139) - Likely secondary to volume depletion with poor po intake/vomiting vs beer potomania - Asymptomatic, Hypovolemic - Serum osmol 273, Urine Osmol 170 - Continue sodium chloride 1G twice daily tablets Hypokalemia (3.3) - Repleted - Likely a/w constipation, poor bowel movement #Alcoholic steatohepatitis/ hepatitis C -Chronic alcohol use with new onset ascites, not requiring glucocorticoid or paracentesis - 06/[address] showed fatty infiltration of liver, no masses seen, portal vein is patent - AST/ALT and Alk Phos overall downtrending - Pain management with IV Toradol 10 Mg IV prn and oxycodone 5/10 mg prn for breakthrough pain (on 5 Mg at home) Avoid Tylenol use with mild transaminitis - N/V - Zofran PRN, Scheduled Protonix IV twice daily - Prelim Hep C screening positive. Hep C RNA test not performed due to inadequate sample, resent Patient reports previously being be told she had hepatitis but unsure type and chronicity so will follow up with Hep C RNA as above Hep B Screening ordered Consider ordering HIV testing if patient consents to testing Alcohol use - Typically drinks 12 cans of beer/week; last drink reported 06/25 afternoon - ETOH level 90.2 on admission - Folate, B12, B1 levels ordered prior to supplementation - AWSS protocol with Ativan prn - Thiamine IV and Folic acid IV daily - Patient remains irritable, emotionally labile, and tremulous - Not presently amenable to discussion regarding mental health/alcohol abuse #Subutex use - Continue home regimen - patient reports .5 tab in AM and .5 tab PM - Pharmacy aware - Additional pain regimen as above Chronic stable diagnoses: #Nicotine use - vaping daily, denies need for nicotine patch on admission #COPD - continue home inhalers #HTN - continue losartan #Anxiety/depression - continue nortriptyline, Wellbutrin, hydroxyzine, and alpr azolam prn VTE ppx: SCDs Diet: Regular Dispo: med/tele Admission and Anticipated Discharge Date Admission Date: June 26, 2024 Supervising Physician Co-Signing Physician Notes I personally examined the patient and verified all morgan points of history and exam, discussed case, and agree with decision making with Dr Lujan hasn't really had much meaningful BM but did take the rest of bowel prep. ate, then belly felt more bloated. vitals noted anxious, tearful - but no physical distress. abd mod distended softer than before mild diffuse tenderness no guarding no rebound abdominal pain - constipation. nothing examining c/w bowel obstruction - just refractory constipation. does not want second bowel prep - discussed and will utilize mag citrate and lactulose (q1hr prn refractory constipation) instead. will need chronic bowel regimen as well. outpt f/u for rectocele hyponatremia - EtOH intake and poor po food most likely - ongoing improvement. fortunately asymptomatic EtOH abuse - likely depression/anxiety mediated. discussed that her EtOH intake is probably a maladaptive coping skill - discussed more productive and less harmful coping skills. frequently asking for ativan - d/w pt reflective of my concern that without other coping skills she will be high risk to continue drinking since she appears to be using that to drown the anxious sensation. otherwise as above Subjective 06/30: No acute events overnight. Mood lability continues: agitation surrounding alcohol use and mental health. Patient notes that she often becomes agitated and tremulous if she goes without alcohol for extended periods. She notes that her abdomen remains distended and painful, but that it is mildly better than yesterday. She was pleased to be having a regular diet today and notes an appetite to eat it. She continues to urinate well, but notes she has not yet achieved a formed bowel movement, despite drinking the GoLytely. Nursing and patient noted that stools have remained liquid. Physical Exam Physical Exam: Gen: NAD, alert, interactive, intermittently angry vs tearful HEENT: Supple, no LAD, no thyromegaly Resp:Non-labored, no wheezing/rhonchi/rales, CTAB CV:RRR, normal S1/S2, no M/R/G Abd: Soft, distended, epigastric TTP, normoactive bowels, no masses Extr: 2+ dp bilaterally, no edema, tremulous upper extremities, no clonus Skin: No rashes lesions or erythema Results & Data Results & Data Vital Signs (Past 12 Hours) Vital Signs Temp Pulse Pulse Resp BP BP Pulse Ox 06/30/24 03:55 36.7 C 71 16 93/59 L 96 06/29/24 23:08 36.6 C 74 16 116/74 98 06/29/24 22:05 76 06/29/24 20:20 36.5 C 77 16 123/88 96 O2 Del Method 06/30/24 03:55 Room Air 06/29/24 23:08 Room Air 06/29/24 22:05 06/29/24 20:20 Room Air Resident Activity Tracking Resident Involvement: Resident Care Provided Care Provided: Adult Hospital Medicine (3) Hypertension Hypertension type: essential hypertension Qualified Code(s): I10 - Essential (primary) hypertension (4) Depression Depression Type: other depression Qualified Code(s): F32.89 - Other specified depressive episodes
[2024-06-30] MEDS: DICLOFENAC SOD 1% GEL 100 GM TUBE EXT SCH (12:46)
[2024-06-30] MEDS: LORazepam 2 MG/1 ML VIAL IV STA ×2 (15:20→15:46)
[2024-06-30] MEDS: MAGNESIUM CITRATE 296 ML/BTL PO STA (15:21)
[2024-06-30] MEDS: LACTULOSE SYRUP 30 GM/45 ML UDP PO STA (15:30)
--- NOTE | 2024-06-30 15:36 | Billing Data ---
Date of Service June 30, 2024 Coding Level of Care Code 74692 SUB INP/OBS CARE MIN
[2024-06-30] MEDS: LACTULOSE SYRUP 30 GM/45 ML UDP PO PRN (16:27)
[2024-06-30] MEDS: POLYETHYLENE (MIRALAX) 17 GM PACK PO SCH (20:14)
[2024-07-01 06:37] LABS: BUN Creatinine Ratio 5.1 (10-20); Creatinine Clr Calc Pharmacy 33.3 ml/min; Potassium 4.3 mmol/L (3.5-5.1)
[2024-07-01 06:38] LABS: Albumin Globulin Ratio 1.8 (0.9-2); Albumin Level 3.5 gm/dl (3.4-5.0); Bilirubin,Total 0.3 mg/dl (0.2-1.0); Calcium 8.8 mg/dl (8.6-10.3); Total Protein 5.5 gm/dl (6.0-8.3)
--- NOTE | 2024-07-01 10:51 | Hospitalist Progress Note ---
Date of Service July 01, 2024 Assessment & Plan (1) Abdominal pain: (2) Acute hyponatremia: (3) Hypertension: (4) Depression: (5) Rectocele: (6) Constipation: Plan Najma is a 63-year-old female with a medical history of COPD, HTN, anxiety/depression, alcohol use, on Subutex. She presented to the ED on 06/26 for 5 days of right-sided abdominal pain and abdominal distention. She was found to have a sodium of 121. She was admitted for hyponatremia and alcohol hepatitis. #Abdominal pain, Constipation - Patient w/ abdominal distension and pain, tried fleet enema at home w/o success - CTAP 06/26 w/o sign of obstruction or infection - 06/28 Received Miralax 51 mg x 2 w/o change - 06/29 Received GoLytely and electrolytes w/ production of liquid stools only KUB showing ongoing moderate stool burden Second dose of GoLytely w/ Mg Citrate, Bisacodyl, and Colace ordered in PM - 06/30 Patient continues to pass liquid stool, distension and discomfort ongoing but improved Would repeat KUB if pain increases Changed diet to regular, likely to increase bowel motility Continue Docusate PRN and MiraLax BID - 07/01 Bowel movement amount and frequency increased with addition of lactulose and Mg citrate Abdominal pain improved and bloating diminished following multiple BMs overnight Would anticipate discharge regimen of Miralax BID and Lactulose 30-60g PRN for days w/o bowel movement Hyponatremia, resolved - Likely secondary to volume depletion with poor po intake/vomiting vs beer potomania - Asymptomatic, Hypovolemic - Serum osmol 273, Urine Osmol 170 - Discontinue sodium chloride tablets Hypokalemia, resolved - Likely a/w constipation, poor bowel movement Alcoholic steatohepatitis/ hepatitis C - Chronic alcohol use with new onset ascites, not requiring glucocorticoid or paracentesis - 06/[address] showed fatty infiltration of liver, no masses seen, portal vein is patent - AST/ALT and Alk Phos overall downtrending - Pain management with IV Toradol 10 Mg IV prn and oxycodone 5/10 mg prn for breakthrough pain (on 5 Mg at home) Avoid Tylenol use with mild transaminitis - N/V - Zofran PRN, Scheduled Protonix IV twice daily - Prelim Hep C screening positive. Hep C RNA test not performed due to inadequate sample, resent Patient reports previously being be told she had hepatitis but unsure type and chronicity so will follow up with Hep C RNA as above Hep B Screening ordered Consider ordering HIV testing if patient consents to testing Alcohol use - Typically drinks 12 cans of beer/week; last drink reported 06/25 afternoon - ETOH level 90.2 on admission - Folate, B12, B1 levels ordered prior to supplementation - AWSS protocol with Ativan prn - Thiamine IV and Folic acid IV daily - Mood lability and tremulousness improved - Not presently amenable to discussion regarding mental health/alcohol abuse Subutex use - Continue home regimen - patient reports .5 tab in AM and .5 tab PM - Pharmacy aware - Additional pain regimen as above Chronic stable diagnoses: #Nicotine use - vaping daily, denies need for nicotine patch on admission #COPD - continue home inhalers #HTN - continue losartan #Anxiety/depression - continue nortriptyline, Wellbutrin, hydroxyzine, and alprazolam prn VTE ppx: SCDs Diet: Regular Dispo: med/tele Admission and Anticipated Discharge Date Admission Date: June 26, 2024 Supervising Physician Co-Signing Physician Notes I personally examined the patient and verified all morgan points of history and exam, discussed case, and agree with decision making with Dr Lujan finally had significant BMs - belly feeling better less pain. discussed home she notes not till tomorrow. vitals noted still a bit guarded but less anxious and tearful, nad. abd mild distention mild tender no guarding no rebound abdominal pain - constipation. nothing examining c/w bowel obstruction - just refractory constipation. took significant meds to get BMs but now improved. will want to manage as chronic constipation - probably miralax daily - BID scheduled and then since she tolerated lactulose well 30-60g lactulose prn refractory constipation (ie miralax daily, then 1-2 doses lactulose if she doesn't have a daily BM). hyponatremia - EtOH intake and poor po food most likely - ongoing improvement. fortunately was asymptomatic and now resolved EtOH abuse - likely depression/anxiety mediated. previously discussed that her EtOH intake is probably a maladaptive coping skill - discussed more productive and less harmful coping skills. frequently asking for ativan - d/w pt reflective of my concern that without other coping skills she will be high risk to continue drinking since she appears to be using that to drown the anxious sensation. today reiterated the importance of social support in managing anxiety. otherwise as above Subjective 07/01 0830: No acute events overnight. Patient notes significant amounts of liqui d/brown bowel movements overnight. She is pleased that her abdomen is less distended and less painful than yesterday. Patient notes that she was supposed to be on bowel regimen outpatient for treatment of her rectocele, but that she thought it had improved and stopped taking laxatives and did not pursue surgical intervention. She states that after this episode she will pursue intervention for her rectocele. Patient is experiencing reduced mood lability and tremulousness today and notes she is overall feeling better. She questioned when she would be able to go home. 1230-130: At patient's request, spoke with patient's sister Sophia at length via phone. Sophia expressed discontent with patient's care - noting that patient relayed that she was not feeling better, had not moved her bowels, and was not receiving the right medicine. Patient's diagnosis, treatments, and progress were relayed to sister in depth. Sister questioned why we were not giving the patient enemas, it was explained that patient had already received an enema unsuccessfully prior to presentation. It was explained that patient is endorsing improvement of abdominal pain and frequent soft bowel movements, which indicates improvement, rather than a need for additional/change of intervention. Ultimately, sister stated that she does not want Najma to be seen by students or Dr. Hernandes any further. She was notified that the patient could be removed from our service and placed with another physician. It was requested that patient could meet with other doctors prior to changing, I relayed that this was not possible. Change of care team will be made 07/03/23. Physical Exam Physical Exam: Gen: NAD, alert, interactive, intermittently angry vs tearful HEENT: Supple, no LAD, no thyromegaly Resp:Non-labored, no wheezing/rhonchi/rales, CTAB CV:RRR, normal S1/S2, no M/R/G Abd: Soft, distended (though reduced), no epigastric TTP, hyperactive bowels, no masses Extr: 2+ dp bilaterally, no edema, tremulous upper extremities (resolved), no clonus Skin: No rashes lesions or erythema Results & Data Results & Data Vital Signs (Past 12 Hours) Vital Signs Temp Pulse Pulse Resp BP BP Pulse Ox 07/01/24 08:09 36.5 C 72 18 155/84 H 95 07/01/24 07:32 36.5 C 68 16 162/91 H 96 07/01/24 07:02 70 07/01/24 03:23 72 144/78 H 07/01/24 03:12 36.5 C 73 16 169/82 H 95 06/30/24 22:58 36.4 C L 87 18 169/80 H 95 06/30/24 22:45 76 O2 Del Method 07/01/24 08:09 Room Air 07/01/24 07:32 Room Air 07/01/24 07:02 07/01/24 03:23 07/01/24 03:12 Room Air 06/30/24 22:58 Room Air 06/30/24 22:45 Resident Activity Tracking Resident Involvement: Resident Care Provided Care Provided: Adult Hospital Medicine (3) Hypertension Hypertension type: essential hypertension Qualified Code(s): I10 - Essential (primary) hypertension (4) Depression Depression Type: other depression Qualified Code(s): F32.89 - Other specified depressive episodes
--- NOTE | 2024-07-01 11:12 | Billing Data ---
Date of Service July 01, 2024 Coding Level of Care Code 05404 SUB INP/OBS CARE
[2024-07-02 06:20] LABS: Albumin Globulin Ratio 1.7 (0.9-2); Albumin Level 3.5 gm/dl (3.4-5.0); BUN Creatinine Ratio 5.2 (10-20); Bilirubin,Total 0.3 mg/dl (0.2-1.0); Calcium 9.2 mg/dl (8.6-10.3); Creatinine Clr Calc Pharmacy 40.9 ml/min; Globulin 2.1 gm/dl (2.5-4.0); Potassium 3.8 mmol/L (3.5-5.1); Total Protein 5.6 gm/dl (6.0-8.3)
[2024-07-02] MEDS: traMADol HCL 50 MG TABLET PO STA (10:47)
--- NOTE | 2024-07-02 12:40 | Hospitalist Progress Note ---
Date of Service July 02, 2024 Assessment & Plan (1) Abdominal pain: Plan: Intermittent. No significant pathology seen. Will use tramadol as needed. (2) Acute hyponatremia: Plan: Present on admission. Now resolved. Serial labs (3) Hypertension: Plan: Stable. Continue current medical management (4) Depression: Plan: Stable. Continue current medical management (5) Hepatitis: Plan: Known. From hepatitis C virus and alcohol abuse. Serial labs. Supportive care Plan Hopeful discharge to home tomorrow, July 03 Admission and Anticipated Discharge Date Admission Date: June 26, 2024 Subjective Alert and oriented. No acute distress. Hyponatremia has now normalized. Hypokalemia corrected to 3.8. Liver enzymes have normalized except for mildly elevated AST. Hopefully she can go home tomorrow, July 03 Review of Systems 2 Review of Systems: Constitutionalno fever or chills ENTno blurred vision, no double vision, no epistaxis, no sore throat Respiratoryno cough, no wheezing, no shortness of breath Cardiacno palpitations, no chest pain, no syncope Lynne nausea, vomiting, diarrhea, melena, hematochezia. Intermittent nonspecific pain GUno urinary retention, no urinary incontinence, no dysuria, no hematuria Musculoskeletalno joint pain, no muscle tenderness Skinno bruising, no rashes, no pruritus Neurono isolated weakness, no paresthesia, no weakness Psychno depression, no anxiety Physical Exam 2 Physical Exam: General-alert and oriented x3, no fever, no chills HEENT-head atraumatic and normocephalic, pupils equal and reactive to light, extraocular muscles intact Neck-no lymphadenopathy or thyromegaly, trachea midline Chest-clear to auscultation. No rales, wheezing or rhonchi Cardiac-regular rate and rhythm, normal S1 and S2 Abdomen-normal bowel sounds, no hepatosplenomegaly Extremities-no cyanosis, clubbing, or edema Neuro-cranial nerves II through XII intact, motor and sensory function within normal limits, strength symmetrical, no focal deficits Psych-normal affect, normal mood Results & Data Results & Data Vital Signs (Past 12 Hours) Vital Signs Temp Pulse Pulse Resp BP Pulse Ox O2 Del Method 07/02/24 11:10 36.8 C 80 20 138/88 96 Room Air 07/02/24 07:34 36.9 C 77 20 181/98 H 98 Room Air 07/02/24 07:00 69 07/02/24 03:17 36.6 C 67 16 157/91 H 96 Room Air Laboratory Results 06/30/24 05:40 07/02/24 05:23 PG Care Time/CCT Total # of Minutes Spent Total Time Spent with Patient: Total time spent is greater than 50% in coordination of care (as documented) at patient's floor/unit and/or counseling patient: Coding Level of Care Code 86558 SUB INP/OBS CARE 3/50MIN Diagnoses Abdominal pain R10.9 Acute hyponatremia E87.1 Essential hypertension I10 Hypertension type: essential hypertension Other depression F32.89 Depression Type: other depression Hepatitis K75.9 (3) Hypertension Hypertension type: essential hypertension Qualified Code(s): I10 - Essential (primary) hypertension (4) Depression Depression Type: other depression Qualified Code(s): F32.89 - Other specified depressive episodes
[2024-07-02 15:32] LABS: Hepatitis C Vira RNA (Log) PCR <1.18 NOT DETECTED Log IU/mL (NOT DETECTED); Hepatitis C Viral RNA by PCR <15 NOT DETECTED IU/mL (NOT DETECTED)
[2024-07-02] MEDS: DOCUSATE SODIUM 100 MG CAP PO SCH (20:17)
[2024-07-02] MEDS: THIAMINE HCL 100 MG TAB PO SCH (20:18)
[2024-07-02] MEDS: PANTOprazole 40 MG TAB PO SCH (20:18)
[2024-07-03 08:03] VITALS: RESP 20
[2024-07-03] MEDS: FOLIC ACID 1 MG TAB PO SCH (08:30)
[2024-07-03 10:31] LABS: Albumin Globulin Ratio 1.6 (0.9-2); BUN Creatinine Ratio 6.7 (10-20); Bilirubin,Total 0.4 mg/dl (0.2-1.0); Calcium 9.7 mg/dl (8.6-10.3); Creatinine Clr Calc Pharmacy 43.6 ml/min; Globulin 2.5 gm/dl (2.5-4.0); Potassium 4.7 mmol/L (3.5-5.1); Total Protein 6.5 gm/dl (6.0-8.3)
[2024-07-03 11:12] VITALS: BP 157/90; TEMP 97.5; O2SAT 100
[2024-07-03] MEDS: traMADol HCL 50 MG TABLET PO PRN (12:02)
--- NOTE | 2024-07-03 12:04 | Discharge Summary ---
Discharge Summary Date of Service July 03, 2024 Principal Dx & Hospital Course #1 = Principal Diagnosis (1) Abdominal pain: Intermittent. No significant pathology seen. Will use tramadol as needed. (2) Acute hyponatremia: Present on admission. Now resolved. Serial labs (3) Hypertension: Stable. Continue current medical management (4) Depression: Stable. Continue current medical management (5) Hepatitis: Known. From hepatitis C virus and alcohol abuse. Serial labs. Supportive care Plan Home todayJuly 03 Admission HPI Per Admitting Provider Patient is a 63-year-old female with past medical history of COPD, HTN, anxiety/depression, alcohol use, on Subutex. She presented to the ED for 5 days of right-sided abdominal pain and abdominal distention. She was found to have a sodium of 121. She is being admitted for hyponatremia and alcohol hepatitis. Patient seen at bedside. She stated that proximately 5 days ago she developed bilateral abdominal and flank pain as well as abdominal distention. She stated the symptoms have been worsening over the past few days. She also endorses nausea and vomiting, vomiting approximately 1-2 times per day. She denies any hematemesis however does endorse hematemesis several weeks ago. She stated she has never had distention like this before. She has been unable to eat due to the nausea. She also stated that she has been constipated and used a Fleet enema recently without relief. She also endorses dyspnea on exertion for several days and has been using her home inhalers. Patient denies fever, chills, rhinorrhea, sore throat, cough, chest pain, LE edema, numbness, tingling. Regarding her alcohol use, she stated that for several years she has drank roughly a 12 pack/week. She denies daily alcohol use but states that she drinks multiple days a week. She denies ever going through alcohol withdrawal before. She stated her last drink was yesterday afternoon and denies any current withdrawal symptoms. She would be interested in quitting drinking. She also endorses nicotine use with vaping daily. She denies illicit drug use. She denies past history of DM or previous VTE. She stated she has had cervical and lung cancer and had a left upper lung resection approximately 5 years ago. She took her medications this morning but is due for her evening medications. She stated she is on Subutex takes half a tablet in the morning and half in the evening. She also takes alprazolam 0.25 Mg half a tablet in the morning and half in the evening. She wishes to be a conditional code; would want CPR but would not want intubation or any mechanical ventilation. She stated her pain was greater than a 10/10 upon arrival and after receiving fentanyl 50 mcg her pain is now 9/10. Discharge Exam General-alert and oriented x3, no fever, no chills HEENT-head atraumatic and normocephalic, pupils equal and reactive to light, extraocular muscles intact Neck-no lymphadenopathy or thyromegaly, trachea midline Chest-clear to auscultation. No rales, wheezing or rhonchi Cardiac-regular rate and rhythm, normal S1 and S2 Abdomen-normal bowel sounds, no hepatosplenomegaly Extremities-no cyanosis, clubbing, or edema Neuro-cranial nerves II through XII intact, motor and sensory function within normal limits, strength symmetrical, no focal deficits Psych-normal affect, normal mood Discharge Plan Discharge Items Patient Disposition: Home - Self-Care Reason For Visit: HYPONATREMIA, ALCOHOL HEPATITIS Discharge Diagnosis: Alcohol induced hepatitis, abdominal pain, hyponatremia, hypokalemia Activity: Resume your previous activity Non-emergency contact: Primary Care Provider Call non-emergency contact if: your symptoms worsen Follow-up/Referrals: Jose David Duke [Primary Care Provider] - Diet: Regular Addtl Attending Provider Instructions: Alcohol intake cessation is highly recommended. Take tramadol as needed for abdominal pain Pending Studies at Discharge: No Stand-Alone Forms: My [employer], Smoking Cessation Medications and DC Order Prescriptions: New cyanocobalamin (vitamin B-12) 1,000 mcg tablet 1,000 mcg PO DAILY Qty: 30 3RF tramadol 50 mg Tablet 50 mg PO Q6H PRN (Reason: pain) Qty: 20 0RF Continued Trelegy Ellipta 100-62.5-25 mcg blister with device 1 inh INHALATION DAILY losartan 100 mg tablet 100 mg PO DAILY bupropion HCl 300 mg tablet extended release 24 hr 300 mg PO DAILY docusate sodium 100 mg Capsule 100 mg PO BID PRN (Reason: Constipation) alprazolam 0.25 mg tablet 0.12 mg PO BID nortriptyline 75 mg capsule 75 mg PO .HS/UD omeprazole 20 mg Tablet,Delayed Release (Dr/Ec) 20 mg PO DAILY buprenorphine-naloxone 8-2 mg tablet, sublingual 1.75 tab SUBLINGUAL DAILY hydroxyzine HCl [Atarax] 25 mg Tablet 25 mg PO BID PRN (Reason: Anxiety) albuterol sulfate [Ventolin HFA] 90 mcg/actuation HFA aerosol inhaler 2 puff INHALATION Q4H PRN (Reason: sob) Discharge Orders: Discharge Order (Routine); Ordered 07/03/24 Ordered By: Dalton Stratton Admission Data Admit Date/Time: 06/26/24 20:00 Attending Provider: Dalton Stratton Admit Provider: Louie Kirk Primary Care Provider: Jose David Duke Other Providers: Louie Kirk Hospital Stay Data Consultations 06/26/24 19:17 ED Decision to Admit Stat Diagnostic Imagining Performed 06/26/24 14:56 CT abd pelvis IV con only Stat Pending Results Patient Have Any Pending Studies at Discharge: No Discharge Instructions Given to Patient (Per Discharging Provider) Alcohol intake cessation is highly recommended. Take tramadol as needed for abdominal pain Total Time Total Time Spent Total Time Spent (In Minutes): 45 minutes Coding Level of Care Code 17199 INP/OBS DISCH >30 MIN Diagnoses Abdominal pain R10.9 Acute hyponatremia E87.1 Essential hypertension I10 Hypertension type: essential hypertension Other depression F32.89 Depression Type: other depression Hepatitis K75.9
[2024-07-03 13:16] VITALS: PULSE 63
== END 2024-07-03 13:54 | disposition home or self-care (01) | DRG 433 ==
LOC: SUATTDRO → ED 14:27 → SUATTDRO 20:00 → EDINP 20:00 → 2N 06-27 18:16